=== PATIENT | male | born 1965 | race Caucasian/White ===

== ENCOUNTER → 2023-09-30 07:07 | Outpatient (REF) | payer OTHER, SELFPAY | LOC: RAD 07:07 | PROVIDERS: ATTENDING PHYSICIAN Surgery; FAMILY PHYSICIAN Internal Medicine | DX: R50.9 Fever, unspecified (principal) | CPT/HCPCS: 71250; 74176 ==

== ENCOUNTER 2023-10-02 18:59 | Inpatient (IN) | payer OTHER, SELFPAY ==
[2023-10-02 12:45] VITALS: BP 191/93; BMI 26.9
[2023-10-02 13:13] LABS: % Basophils 0.5 % (0-2); % Immature Granulocytes 0.4 % (0-0.5); % Lymphocytes 12.8 % (20.5-51.1); % Monocytes 5.5 % (1.7-9.3); % Neutrophils 80.8 % (42.2-75.2); Absolute Basophils 0.1 10^3/uL (0-0.2); Absolute Lymphocytes 1.4 10^3/uL (1.2-3.4); Absolute Monocytes 0.6 10^3/uL (0.1-0.6); Absolute Neutrophils 8.9 10^3/uL (1.4-6.5); Hemoglobin 14.1 g/dL (13.0-18.0); Mean Corp Hgb Conc. 32.8 g/dL (33.0-37.0); Mean Corpuscular Hgb 27.2 pg (27.0-31.0); Mean Platelet Volume 9.7 fL (7.4-10.4); Nucleated Red Blood Cells % 0 % (-); Platelet Count 255 10^3/uL (130-400); Red Blood Cell Count 5.18 10^6/uL (4.70-6.10); Red Cell Dist. Width 14.6 % (11.5-14.5)
[2023-10-02 13:22] LABS: INR 1.21; PT 15.4 Sec (11.4-14.6)
[2023-10-02 13:32] LABS: Lactic Acid 1.6 mmol/L (0.7-2.0)
[2023-10-02 13:34] LABS: ALT (SGPT) 36 U/L (0-50); AST (SGOT) 32 U/L (17-59); Albumin 4.4 g/dl (3.5-5.0); Alkaline Phosphatase 98 U/L (38-126); Blood Urea Nitrogen 17 mg/dl (9-20); Calcium 9.2 mg/dl (8.4-10.2); Carbon Dioxide 24 mmol/L (22-30); Chloride 100 mmol/L (98-107); Estimated Creatinine Clearance > 125 ml/min; Glucose 189 mg/dl (70-99); Potassium 2.7 mmol/L (3.5-5.1); Sodium 136 mmol/L (135-145); Total Bilirubin 0.9 mg/dl (0.2-1.3); Total Protein 7.4 g/dl (6.3-8.2); eGFR > 60.00
[2023-10-02] MEDS: KCL 160 MEQ IV (16:36)
[2023-10-02] MEDS: VANCOCIN 275 MG IV (16:40)
--- NOTE | 2023-10-02 17:40 | ED.GENMED ---
History of Present Illness
<Anderson Ovalle Jr., PA-C - Last Filed: 10/02/23 18:37>
General
Chief Complaint: Fever
Source: patient and family
Exam Limitations: none
Time Seen by Provider: 10/02/23 14:27
Nursing documentation reviewed up to this point in time: agreed with
Travel History
Have you had any contact with someone who has COVID-19?: No
Do you have any symptoms of coronavirus? Fever > 100 degrees, chills, cough, shortness of breath, sore throat, loss of taste or smell, muscle aches, or headache?: No
History of Present Illness
History of Present Illness:
58-year-old male past medical history of A-fib currently on Eliquis, previous T12 injury and paraplegia thereafter neurogenic bladder presenting to the emergency department today with concerns of worsening swelling discomfort of the right hip. Has
been managed chronically for a chronic stage IV decubitus ulcer by [facility] but has had worsening symptoms over the past week and a half with home chills increasing redness swelling and warmth. Has been taking his doxycycline at home
over the past few days without improvement. Also an outpatient CT scan showing a fluid collection to the right hip
Past History
<Anderson Ovalle Jr., PA-C - Last Filed: 10/02/23 18:37>
Past History
ED Past Medical History: HTN, NIDDM, Other (T12 vertebral compression fracture at age 15 with resultant paraplegia), Other (Stasis ulcers, SBO, Anemia, gastritis,) and Other (Epididymitis)
ED Past Surgical History: Bowel resection (Colostomy) and Orthopedic (Spinal fusion)
Social History
Tobacco: Non-smoker
Alcohol: None
Personal:
Living: alone
Employment: Retired
Family History
Family History: Other (Noncontributory)
Review of Systems
<Anderson Ovalle Jr., PA-C - Last Filed: 10/02/23 18:37>
Review of Systems
Allergies reviewed?: Yes
All Other Systems: ROS reviewed and negative except as documented in HPI and ROS
Phy Exam
<Anderson Ovalle Jr., PA-C - Last Filed: 10/02/23 18:37>
Physical Exam
Physical Exam:
GENERAL: Alert , in no apparent distress
EYE: pupils equal and reactive
NECK: Supple, no significant adenopathy.
ENT: o/p clr, mmm.
CARDIAC: Regular rate and rhythm .
LUNGS: Clear breath sounds bilaterally, no acute respiratory distress, no wheezes/rales/rhonchi
ABDOMEN: Soft, without focal tenderness, no r/g, no cvat
NEUROLOGICAL: Alert and oriented, no focal neuro deficits
SKIN: Warm and dry, skin intact.
MUSCULOSKELETAL: Significant swelling to the right lateral hip with a stage IV decubitus ulcer is roughly 3 cm in diameter and tracks very deep. No active purulence moderate amount of surrounding redness swelling warmth, well perfused.
PSYCH: Normal and appropriate interaction.
Course
<Anderson Ovalle Jr., PA-C - Last Filed: 10/02/23 18:37>
Orders/Labs/Results
Orders:
Orders
10/02/23 12:50
Electrocardiogram (*1) Urgent
Reason for Study: Other
Other Reason for Exam: Possible Sepsis
EKG- Treatment ONCE
10/02/23 13:03
Complete Blood Count/With Diff Urgent
Comprehensive Metabolic Panel Urgent
Lactic Acid Q4H
Comment: ON ICE, CANCEL 2ND ORDER IF FIRST LACTIC ACID LEVEL <2
Prothrombin Time Urgent
Blood Culture Q30M
BRANDAN Source: Blood/Venous
Specimen Description:
Comment: FROM 2 SEPARATE SITES
10/02/23 14:56
Blood Culture Q30M
BRANDAN Source: Blood/Venous
Specimen Description:
Comment: FROM 2 SEPARATE SITES
10/02/23 14:57
Wound Culture [Wound/Abscess/Other Culture] Urgent
BRANDAN Source: Hip
Specimen Description: Right
Date Specimen was Collected: 10/02/23
Time Specimen was Collected: 14:53
10/02/23 Dinner
1800 calorie (15 carb) Diabetic
10/02/23 15:47
Vancomycin [Vancocin] 1,250 mg 0.9% Sodium Chloride 250 ml [Nss] 250 ml IV NOW
10/02/23 15:49
Potassium Chloride [KCl] 20 meq 0.9% Sodium Chloride 150 ml [Nss] 150 ml IV NOW
10/02/23 18:14
Potassium Chloride [KCl] 40 meq PO NOW STA
Straight Cath As Directed
Frequency: q6h
Patient may straight cath themselves: Yes
10/02/23 18:15
Admit/Transfer Patient As Directed
Co-Sign Provider:
Level of Care: Inpatient admission
Assign to:: Medical/Surgical
Physician / Group: rajendra hay
Diagnosis: right hip worsening stage 4 decub, hypokalemia
Reason for Hospitalization: right hip worsening stage 4 decub, hypokalemia
Expected length of stay greater than two midnights?: Yes
ELOS- Estimated Length of Stay in days: 3
I certify the patient meets the requirements for IP care: Yes
Code Status As Directed
Resuscitation Status: Do not resuscitate
Reached after discussion with pt or family/Healthcare POA: Yes
Based on pt advanced directive or healthcare POA form: Yes
Decision communicated with: per pt
DNR Bracelet Application ONCE
10/02/23 18:23
HYDROmorphone [Dilaudid] 0.5 mg IV Q3HPRN PRN
HYDROmorphone [Dilaudid] 1 mg IV Q4HPRN PRN
Lorazepam [Ativan] 1 mg IV Q8HPRN PRN
10/02/23 18:28
INFECTIOUS DISEASE CONSULT Routine
Consulting Provider: Marce Davis
Was physician already notified: Yes
Reason for consult: infected right hip stage 4 ulcer
10/02/23 19:22
Acetaminophen [Tylenol] 1,000 mg PO Q4HPRN PRN
Dextrose 50%-Water [Dextrose 50% Syringe] 12.5 grams IV [id number] PRN
Glucagon [GlucaGen] 1 mg IM PRN PRN
10/02/23 19:22
VTE Contraindication Routine
VTE Mechanical Device Contraindication: Medical Contraindication
Pharmocologic Contraindication: Medical Contraindication
Comment: pt on eliquis
Activity As Directed
Activity Level: As Tolerated
Bedside Glucose Monitoring As Directed
Frequency: AC&HS
Comment: Change to q6h if pt on TPN, tube feeding or not eating
Vital Signs As Directed
Frequency: Per unit guidelines
Ot Eval And Treat Routine
Pt Eval And Treat Routine
Activity Level: As Tolerated
10/02/23 20:00
Apixaban [Eliquis] 5 mg PO BID
Piperacillin/Tazo 3.375 Gram [Zosyn] 3.375 gram in 50 ml IV Q6H
VANCOMYCIN Pharmacy to Dose [VANCOCIN Pharmacy to Dose] 1 each Pharmacy To Prepare [Call Pharmacy To Prepare] 0 ml IV PER PROTOCOL
10/03/23 06:00
Basic Metabolic Panel IN AM
Complete Blood Count/With Diff IN AM
Glycohemoglobin (HgbA1c) IN AM
10/03/23 07:30
Insulin Aspart Corrective Low [Novolog Flexpen-Low Resistance] See Protocol SC AC
10/03/23 08:00
Amlodipine [Norvasc] 5 mg PO DAILY
Losartan [Cozaar] 100 mg PO DAILY
Multivitamin [Theragran] 1 tablet PO DAILY
10/04/23 06:00
Basic Metabolic Panel IN AM
Complete Blood Count/With Diff IN AM
10/05/23 06:00
Basic Metabolic Panel IN AM
Complete Blood Count/With Diff IN AM
Abnormal Lab Results
10/02/23
13:03
WBC 11.0 H 10^3/uL
(4.8-10.8)
MCHC 32.8 L g/dL
(33.0-37.0)
RDW 14.6 H %
(11.5-14.5)
Absolute Neuts (auto) 8.9 H 10^3/uL
(1.4-6.5)
Neutrophils % 80.8 H %
(42.2-75.2)
Lymphocytes % 12.8 L %
(20.5-51.1)
PT 15.4 H Sec
(11.4-14.6)
Potassium 2.7 L* mmol/L
(3.5-5.1)
Creatinine 0.6 L mg/dL
(0.7-1.3)
Glucose 189 H mg/dl
(70-99)
10/02/23 13:03
10/02/23 13:03
Vital Signs
Initial and Last Documented VS:
Initial Vital Signs
Temp Pulse Resp BP Pulse Ox
98.9 F 118 16 191/93 100
10/02/23 12:45 10/02/23 12:45 10/02/23 12:45 10/02/23 12:45 10/02/23 12:45
Last Documented Vital Signs
Temp Pulse Resp BP Pulse Ox
98.6 F 89 18 166/79 100
10/02/23 19:31 10/02/23 19:31 10/02/23 19:31 10/02/23 19:31 10/02/23 19:31
<DO Mary Burgos Last Filed: 10/02/23 20:28>
Orders/Labs/Results
Orders:
Orders
10/02/23 12:50
Electrocardiogram (*1) Urgent
Reason for Study: Other
Other Reason for Exam: Possible Sepsis
EKG- Treatment ONCE
10/02/23 13:03
Complete Blood Count/With Diff Urgent
Comprehensive Metabolic Panel Urgent
Lactic Acid Q4H
Comment: ON ICE, CANCEL 2ND ORDER IF FIRST LACTIC ACID LEVEL <2
Prothrombin Time Urgent
Blood Culture Q30M
BRANDAN Source: Blood/Venous
Specimen Description:
Comment: FROM 2 SEPARATE SITES
10/02/23 14:56
Blood Culture Q30M
BRANDAN Source: Blood/Venous
Specimen Description:
Comment: FROM 2 SEPARATE SITES
10/02/23 14:57
Wound Culture [Wound/Abscess/Other Culture] Urgent
BRANDAN Source: Hip
Specimen Description: Right
Date Specimen was Collected: 10/02/23
Time Specimen was Collected: 14:53
10/02/23 Dinner
1800 calorie (15 carb) Diabetic
10/02/23 15:47
Vancomycin [Vancocin] 1,250 mg 0.9% Sodium Chloride 250 ml [Nss] 250 ml IV NOW
10/02/23 15:49
Potassium Chloride [KCl] 20 meq 0.9% Sodium Chloride 150 ml [Nss] 150 ml IV NOW
10/02/23 18:14
Potassium Chloride [KCl] 40 meq PO NOW STA
Straight Cath As Directed
Frequency: q6h
Patient may straight cath themselves: Yes
10/02/23 18:15
Admit/Transfer Patient As Directed
Co-Sign Provider:
Level of Care: Inpatient admission
Assign to:: Medical/Surgical
Physician / Group: rajendra hay
Diagnosis: right hip worsening stage 4 decub, hypokalemia
Reason for Hospitalization: right hip worsening stage 4 decub, hypokalemia
Expected length of stay greater than two midnights?: Yes
ELOS- Estimated Length of Stay in days: 3
I certify the patient meets the requirements for IP care: Yes
Code Status As Directed
Resuscitation Status: Do not resuscitate
Reached after discussion with pt or family/Healthcare POA: Yes
Based on pt advanced directive or healthcare POA form: Yes
Decision communicated with: per pt
DNR Bracelet Application ONCE
10/02/23 18:23
HYDROmorphone [Dilaudid] 0.5 mg IV Q3HPRN PRN
HYDROmorphone [Dilaudid] 1 mg IV Q4HPRN PRN
Lorazepam [Ativan] 1 mg IV Q8HPRN PRN
10/02/23 18:28
INFECTIOUS DISEASE CONSULT Routine
Consulting Provider: Marce Davis
Was physician already notified: Yes
Reason for consult: infected right hip stage 4 ulcer
10/02/23 19:22
Acetaminophen [Tylenol] 1,000 mg PO Q4HPRN PRN
Dextrose 50%-Water [Dextrose 50% Syringe] 12.5 grams IV [id number] PRN
Glucagon [GlucaGen] 1 mg IM PRN PRN
10/02/23 19:22
VTE Contraindication Routine
VTE Mechanical Device Contraindication: Medical Contraindication
Pharmocologic Contraindication: Medical Contraindication
Comment: pt on eliquis
Activity As Directed
Activity Level: As Tolerated
Bedside Glucose Monitoring As Directed
Frequency: AC&HS
Comment: Change to q6h if pt on TPN, tube feeding or not eating
Vital Signs As Directed
Frequency: Per unit guidelines
Ot Eval And Treat Routine
Pt Eval And Treat Routine
Activity Level: As Tolerated
10/02/23 20:00
Apixaban [Eliquis] 5 mg PO BID
Piperacillin/Tazo 3.375 Gram [Zosyn] 3.375 gram in 50 ml IV Q6H
VANCOMYCIN Pharmacy to Dose [VANCOCIN Pharmacy to Dose] 1 each Pharmacy To Prepare [Call Pharmacy To Prepare] 0 ml IV PER PROTOCOL
10/03/23 06:00
Basic Metabolic Panel IN AM
Complete Blood Count/With Diff IN AM
Glycohemoglobin (HgbA1c) IN AM
10/03/23 07:30
Insulin Aspart Corrective Low [Novolog Flexpen-Low Resistance] See Protocol SC AC
10/03/23 08:00
Amlodipine [Norvasc] 5 mg PO DAILY
Losartan [Cozaar] 100 mg PO DAILY
Multivitamin [Theragran] 1 tablet PO DAILY
10/04/23 06:00
Basic Metabolic Panel IN AM
Complete Blood Count/With Diff IN AM
10/05/23 06:00
Basic Metabolic Panel IN AM
Complete Blood Count/With Diff IN AM
Abnormal Lab Results
10/02/23
13:03
WBC 11.0 H 10^3/uL
(4.8-10.8)
MCHC 32.8 L g/dL
(33.0-37.0)
RDW 14.6 H %
(11.5-14.5)
Absolute Neuts (auto) 8.9 H 10^3/uL
(1.4-6.5)
Neutrophils % 80.8 H %
(42.2-75.2)
Lymphocytes % 12.8 L %
(20.5-51.1)
PT 15.4 H Sec
(11.4-14.6)
Potassium 2.7 L* mmol/L
(3.5-5.1)
Creatinine 0.6 L mg/dL
(0.7-1.3)
Glucose 189 H mg/dl
(70-99)
10/02/23 13:03
10/02/23 13:03
Vital Signs
Initial and Last Documented VS:
Initial Vital Signs
Temp Pulse Resp BP Pulse Ox
98.9 F 118 16 191/93 100
10/02/23 12:45 10/02/23 12:45 10/02/23 12:45 10/02/23 12:45 10/02/23 12:45
Last Documented Vital Signs
Temp Pulse Resp BP Pulse Ox
98.6 F 89 18 166/79 100
10/02/23 19:31 10/02/23 19:31 10/02/23 19:31 10/02/23 19:31 10/02/23 19:31
<Anderson Ovalle Jr., PA-C - Last Filed: 10/02/23 18:37>
MDM/Problems Addressed
MDM/Problems Addressed:
58-year-old male presenting to the emergency department today with concerns of subjective fever chills at home over the past few days and worsening redness swelling and warmth to the area surrounding the right hip decubitus ulcer. Initial heart
rate elevated here but improving without specific treatment. White blood cell count of 11.0 blood culture sent potassium was 2.7 was given supplementation here. Case discussed with orthopedics that recommended transfer for higher level care due to
significant abnormalities to his hip chronically. Case was discussed with [facility] who accepted the case but have no available beds. Thus, patient will be admitted here with IV antibiotics and further monitoring pending bed availability.
<Anderson Ovalle Jr., PA-C - Last Filed: 10/02/23 18:37>
*Critical Care Note
Total Time (30-74mins, 75-104mins- exclusive of procedures): Not Applicable
ED Attending Note
<Anderson Ovalle Jr., PA-C - Last Filed: 10/02/23 18:37>
-
Portions of this chart may have been created with voice recognition software.� Occasional wrong word or��sound alike� substitutions may have occurred due to the inherent limitations of voice recognition software.
<Yamil Bacon, DO - Last Filed: 10/02/23 20:28>
ED Attending Note
I performed the substantive portion of visit, reviewed & personally made and approve the management plan that is documented in note by myself or MAMADOU.: Yes
ED Attending Note:
I have reviewed and agree with history and treatment plan by Ed Vasquez. Attempted transfer to [facility], no bed availability will admit until transfer available.
Discharge Plan
Departure
Patient Disposition: Admit
Date of Disposition: 10/02/23
Time of Disposition: 17:42
Admit to: Med/Surg
Admit to doctor: Lei
Presentation/result/management discussed w/ accepting MD/DO: Hospitalist
Patient with high blood pressure during this ER visit?: No
Condition: Good
Covid-19: Not Applicable
Discharge Problem:
Open wound of right hip
Interventions
Interventions:
*Risk Screen - Suicide Last Done: 10/02/23 19:33
*General Assessment Last Done: 10/02/23 14:46
*Neglect/Abuse Screening Last Done: 10/02/23 12:45
*ED COVID-19 Vaccine History Last Done: 10/02/23 12:45
*Nursing Disposition Last Done: 10/02/23 19:25
ED- Neurological Assessment Last Done: 10/02/23 17:20
ED-Skin Assessment Last Done: 10/02/23 14:42
Discharge Date and Time
Discharge Date/Time: 10/02/23 19:26
--- NOTE | 2023-10-02 17:55 | HPS.HSE ---
Addendum entered and electronically signed by Luís Odom MD 10/02/23 18:37:
Seen and examined by me independently in collaboration with the nurse practitioner Alyson.
Agree with note and assessments/plan.
Past medical history/social history/medication/allergies reviewed.
Lab data and imaging data reviewed.
Patient with traumatic T12 injury in remote past and had paraplegia has a chronic right hip wound sent in because of CT evidence of possible collection in the joint space. No fevers but has been feeling cold and is having sweats.
Hemodynamically stable. afebrile.
CT imaging here showed -There is stable severe osseous deformity at the right hip with pseudoarthrosis and 7.5 cm low-density fluid collection at this pseudoarthrosis which may be a sterile or infected collection
There is an overlying 7.5 cm ulcerated soft tissue mass at the lateral margin of proximal right femur which is near contiguous with this fluid collection. Given the patient's clinical history, these findings at the right hip may be a source of
infection.
ER spoke with [facility] for further care as the case is complicated. He has been accepted but still waiting for bed. Patient been accepted to hospitalist service while waiting for the bed.
Will start on vancomycin and Zosyn. Consult ID.
Replete K IV and PO. Consider alternative to HCTZ if persistent problem.
Watch BP closely and optimize medication as needed.
Original Note:
Family Physician
-
Family Physician: Richie Francois
Chief Complaint
-
Right hip redness, swelling, erythema around chronic stage IV decub
History of Present Illness
58-year-old male previous T12 injury paraplegia with neurogenic bladder sent for evaluation of swelling of his right hip. He has a chronic stage IV decub ulcer managed by [facility] wound care but over the past week he has had chills with increasing
redness and warmth to surrounding tissue and expansion of central wound. He has been on oral doxycycline at home without improvement. He had an outpatient CT scan 2 days ago showing fluid collection of the right hip there is plan for the patient
be transferred to [facility] but there is no bed available for 24 to 48 hours.
Patient is other past medical history of hypertension, DM 2, T12 vertebral compression fracture age 15 with resultant paraplegia, stasis ulcers, SBO, anemia, gastritis, epididymitis, diverting colostomy
Medical History
Past Medical History
Past Medical History: Reports Other
Additional Past Medical History:
Diabetes Mellitus, Type
Essential Hypertension
Bilateral Lower Ext DVT
T12 Spinal Injury with Paraplegia
Neurogenic Bladder-self caths every 6 hours
Chronic Sacral/Left Ankle Pressure Wounds
dvt left leg
Past Surgical History: Reports Other
Additional Past Surgical History:
Diverting Colostomy
Penile Implant
Multiple Spinal Surgeries/Fusion
Social History
Tobacco: Other (Occasional Cigar)
Drug: Marijuana
Personal:
Living: Alone
Employment: Disabled
Family History
Family History: Other (Mother, father, sister DM 2)
Allergies / Home Medications
Allergies reflects when Allergies were last updated in [employer] [facility].
Home Medications with original date entered in [employer] [facility]
Allergy/Medication List:
Allergies
Allergy/AdvReac Type Severity Reaction Status Date / Time
ceftriaxone Allergy Mild Rash/pt Verified 10/02/23 12:49
denies.
Tolerated
cefepime.
Sulfa (Sulfonamide Allergy BLISTERS Verified 10/02/23 12:49
Antibiotics) IN MOUTH
sulfisoxazole Allergy BLISTERS Verified 10/02/23 12:49
IN MOUTH
Home Medications
Medicinal Marijuana 0 dose inhalation HSPRN PRN sleep 01/15/22
lorazepam 1 mg tablet (Ativan) 1 mg PO HS 01/15/22
acetaminophen 500 mg tablet (Tylenol Extra Strength) 1,000 mg PO Q4H PRN mild pain 05/12/23
apixaban 5 mg tablet (Eliquis) 5 mg PO BID Blood clot prevention/tx 05/12/23
collagenase clostridium histo. 250 unit/gram topical ointment (Santyl) 1 applic topical DAILY PRN apply to right hip/left ankle wound 05/12/23
losartan 100 mg-hydrochlorothiazide 25 mg tablet 1 tab PO DAILY Blood Pressure 05/12/23
oxybutynin chloride 10 mg tablet,extended release 24 hr 10 mg PO DAILYPRN PRN overactive bladder 05/12/23
therapeutic multivitamin 1 tab PO DAILY Supplement 05/12/23
amlodipine 5 mg tablet (Norvasc) 5 mg PO DAILY 10/02/23
ciprofloxacin HCl 500 mg tablet (Cipro) 500 mg PO BID 10/02/23
Review of Systems
-
History Source: Patient
A 12 point ROS was completed and negative except as noted: Yes
Constitutional: Reports Chills; Denies Fever
EENT: Denies Sore Throat or Runny Nose
Respiratory: Denies Cough or Trouble Breathing
Cardiac: Denies Chest Pain, Palpitations or Syncope
Abdomen/GI: Reports Other (Chronic diverting colostomy); Denies Abdominal Pain, Nausea, Vomiting or Diarrhea
: Denies Dysuria, Frequency, Flank Pain or Incontinence
Musculoskeletal: Denies Joint Pain or Edema
Skin: Reports Other (Right hip decub stage IV with surrounding erythema, expansion of prior existing wound); Denies Itching or Rash
Neurological: Denies Dizzy or Headache
Endocrine: Reports No Symptoms
Hematologic/Lymphatic: Reports No Symptoms
Psych: Reports Calm
Physical Exam
Vital Signs
Vital Signs
Temp Pulse Resp BP Pulse Ox
98.9 F 98 18 191/93 100
10/02/23 12:45 10/02/23 14:46 10/02/23 14:46 10/02/23 12:45 10/02/23 16:50
Physical Exam
General: Comfortable, Conversant and Chills
HEENT: NormoCephalic, Anicteric, PERRLA, [place] Conjunctivae and No Ptosis
Respiratory: Clear; No Wheezes, Rales or Rhonchi
Cardiac: S1/S2 and Regular Rhythm; No Murmur, Rub, Gallop or Peripheral Edema
Breast: Deferred by me
GI: Soft, Non Tender, Non Distended, Normal Bowel Sounds and Ostomy (Chronic diverting colostomy)
Genito-urinary: Deferred by me
Musculoskeletal: No Clubbing, No Cyanosis, No Edema and Other (Right hip decub stage IV with surrounding erythema, expansion of prior existing wound)
Skin: Warm, Dry and Decubitus Ulcers (Right hip decub stage IV with surrounding erythema, expansion of prior existing wound, paraplegia T12 down)
Neuro: AO x 3 and Other (Chronic paraplegia T12 down); No Slurred Speech, Facial Droop, Tremors or Sedated
Psych: Calm
Laboratory Results
-
10/02/23 13:03
10/02/23 13:03
Laboratory Results
PT 15.4 Sec (11.4-14.6) H 10/02/23 13:03
INR 1.21 10/02/23 13:03
Lactic Acid Cancelled 10/02/23 17:00
Total Bilirubin 0.9 mg/dl (0.2-1.3) 10/02/23 13:03
AST 32 U/L (17-59) 10/02/23 13:03
ALT 36 U/L (0-50) 10/02/23 13:03
Alkaline Phosphatase 98 U/L (38-126) 10/02/23 13:03
Impression/Plan
-
Impression/plan:
[facility]
#Infected right hip decubitus ulcer stage IV
-Patient is excepted at [facility] no bed available for 24 to 48 hours
-WBC 11 has been on oral doxycycline as outpatient
-Consult Ortho
-Blood cultures x 2, wound culture
-IV vancomycin
PT/OT/case management consult
#T12 injury with paraplegia age 15
#Chronic neurogenic bladder-q6h
-Continue oxybutynin 10 mg daily as needed
#Hypokalemia 2/2 diuretic use
K2.7
-Hold HCTZ
-20 KCl rider will give 40 mEq p.o.
#HTN�benign
191/93
-Continue losartan, Norvasc 5 mg daily
-hold HCTZ
#DM2
BS 189 check HgbA1c
SSI low
#Anxiety
Continue Ativan 1 mg at bedtime
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
#Dvt left leg
several years ago
cont eliquis
Other PMH:
SBO
DVT prophylaxis
Patient on [facility] [employer] Eliquis 5 mg twice daily
DNR per patient
[2023-10-02 19:31] VITALS: BP 166/79; BMI 27.7
[2023-10-02] MEDS: DILAUDID 0.5 MG IV (20:45)
[2023-10-02] MEDS: ATIVAN 1 MG IV (20:46)
[2023-10-02] MEDS: ZOSYN 50 IV (20:47)
[2023-10-02] MEDS: NSS (PRESERVATIVE FREE) 0.5 ML IV (20:47)
[2023-10-02] MEDS: ELIQUIS 5 MG PO (20:47)
[2023-10-02 20:54] LABS: Glucose - Point of Care 101 mg/dl (70-99)
--- NOTE | 2023-10-02 20:55 | PHA.VAN.IN ---
Assessment
- Assessment
Renal Function: Appears similar to baseline
Concomitant Antimicrobials: piperacillin/tazobactam
AUC Dosing Plan
- Dosing Variables
Dosing Weight (kg): 85
Dosing CrCl (ml/min): 125
Vd coefficient (L/kg): 0.7
- Empiric Dosing
Initial / Loading Dose: vanc 1250mg administered in the ED
Maintenance Regimen: vanc 1250mg Q12 starting 10/02 0600
Estimated AUC (mcg*h/mL): 420
Estimated Peak (mcg*h/mL): 28.9
Estimated Trough (mcg/ml): 9.3
Estimated Half Life (H): 6.4
- Monitoring
No levels ordered at this time: consider levels in next few days
Pharmacokinetics Vancomycin I
- -
Patient Age: 58
Patient Sex: Male
Vancomycin Day #: 1
Indication: Skin And Soft Tissue
Requesting Provider: Alyson Phillips
Pertinent Antimicrobial Allergies:
ceftriaxone - rash (pt denies); tolerated cefepime
sulfa - blisters in mouth
Height / Weight:
Height 5 ft 9 in
Actual Weight 85 kg
Pertinent Past Medical History: paraplegia, chronic stage IV decub ulcer
- Vital Signs / Lab Results
Temp Pulse Resp BP Pulse Ox
98.6 F 89 18 166/79 100
10/02/23 19:31 10/02/23 19:31 10/02/23 19:31 10/02/23 19:31 10/02/23 19:31
Lab Results - Hematology
10/02/23
13:03
WBC 11.0 H
Lab Results - Chemistry
10/02/23
13:03
BUN 17
Creatinine 0.6 L
Estimated Creat Clear > 125
Albumin 4.4
10/02/23 10/02/23
13:03 17:00
Lactic Acid 1.6 Cancelled
Microbiology Results
10/02/23 14:57 Gram Stain - Preliminary
Hip - Right
[2023-10-02 22:56] VITALS: BP 164/76
== END 2023-10-02 23:20 | disposition short-term general hospital (02) | DRG 593 ==
LOC: 4 WEST ACU 18:59
PROVIDERS: ADMITTING PHYSICIAN Internal Medicine; EMERGENCY PHYSICIAN Emergency Medicine; FAMILY PHYSICIAN Internal Medicine
DX: L89.214 Pressure ulcer of right hip, stage 4 (principal); G82.20 Paraplegia, unspecified; E87.6 Hypokalemia; Z66 Do not resuscitate
CPT/HCPCS: 80053; 82962; 83605; 85025; 85610; 87040; 87070; 87205; 93005; 96365; 96375; 99285

== ENCOUNTER 2024-01-07 10:55 | Emergency (ER) | payer OTHER, SELFPAY ==
[2024-01-07 10:58] VITALS: BMI 28.2
[2024-01-07 11:00] VITALS: BP 163/83
[2024-01-07 11:01] VITALS: BP 163/83
[2024-01-07 11:22] LABS: % Basophils 0.4 % (0-2); % Immature Granulocytes 0.4 % (0-0.5); % Lymphocytes 7.5 % (20.5-51.1); % Monocytes 1.8 % (1.7-9.3); % Neutrophils 89.9 % (42.2-75.2); Absolute Lymphocytes 0.7 10^3/uL (1.2-3.4); Absolute Monocytes 0.2 10^3/uL (0.1-0.6); Absolute Neutrophils 8.9 10^3/uL (1.4-6.5); Hematocrit 45.5 % (39.0-52.0); Hemoglobin 15.1 g/dL (13.0-18.0); Mean Corp Hgb Conc. 33.2 g/dL (33.0-37.0); Mean Corpuscular Hgb 28.5 pg (27.0-31.0); Mean Corpuscular Volume 85.8 fL (80.0-94.0); Mean Platelet Volume 10.2 fL (7.4-10.4); Nucleated Red Blood Cells % 0 % (-); Platelet Count 223 10^3/uL (130-400); Red Cell Dist. Width 14.2 % (11.5-14.5); White Blood Cell Count 9.9 10^3/uL (4.8-10.8)
[2024-01-07 11:38] LABS: ALT (SGPT) 18 U/L (0-50); AST (SGOT) 20 U/L (17-59); Albumin 4.6 g/dl (3.5-5.0); Alkaline Phosphatase 98 U/L (38-126); Blood Urea Nitrogen 22 mg/dl (9-20); Calcium 10.1 mg/dl (8.4-10.2); Carbon Dioxide 27 mmol/L (22-30); Chloride 101 mmol/L (98-107); Estimated Creatinine Clearance 116 ml/min; Glucose 171 mg/dl (70-99); Lipase 52 U/L (23-300); Sodium 139 mmol/L (135-145); Total Bilirubin 0.4 mg/dl (0.2-1.3); Total Protein 7.6 g/dl (6.3-8.2); eGFR > 60.00
[2024-01-07 12:00] VITALS: BP 152/81
[2024-01-07] MEDS: OMNIPAQUE 50 ML PO (12:56)
[2024-01-07] MEDS: ATIVAN 1 MG PO (13:12)
[2024-01-07] MEDS: DILAUDID 1 MG IV (13:29)
[2024-01-07] MEDS: NSS 500 IV (13:29)
[2024-01-07] MEDS: ZOFRAN 4 MG IV (13:30)
[2024-01-07 13:45] LABS: Urine Albumin Negative (Neg - Trace); Urine Bilirubin Negative (Negative); Urine Character Clear (Clear); Urine Color Yellow; Urine Glucose Negative (Negative); Urine Ketone Negative (Negative); Urine Leukocyte Negative (Negative); Urine Nitrite Negative (Negative); Urine Occult Blood Negative (Negative); Urine Specific Gravity 1.015 (<1.030); Urine Urobilinogen Negative (Neg - 1+); Urine pH 6.5 (5.0-9.0)
--- NOTE | 2024-01-07 13:45 | ED.GENMED ---
History of Present Illness
General
Chief Complaint: Abdominal Symptoms
Source: patient
Exam Limitations: none
Time Seen by Provider: 01/07/24 11:39
Nursing documentation reviewed up to this point in time: agreed with
History of Present Illness
History of Present Illness:
58 y/o M with h/o remote traumatic t 12 spinal injury causing paraplegia, L colostomy with h/o parastomal hernia, h/o SBO
here with sensation of pain in his left lower abdomen within his hernia/colostomy region since 430 am when he woke up with pain and nauesa. he vomited a total of 4 times between 430 and 630 am and not since but has had pain and nausea
he doesn't appreciate that there has been less output from ostomy recently but has had less appetite the past few dyas.
no fever that he knows of
has h/o neurogenic bladder, caths self every 6 hours
no changes to urine that he is aware of.
pt does note that he chronically feels someversion of discomfort in his stoma regoin/hernia
but he usually doesn' thave vomiting
pt also admits to smoking marijuana to deal with chronic pain
he has never had vomiting related to cannabis before
he tries to stay away from opaites
Past History
Past History
ED Past Medical History: HTN, NIDDM, Other (T12 vertebral compression fracture at age 15 with resultant paraplegia), Other (Stasis ulcers, SBO, Anemia, gastritis,) and Other (Epididymitis)
ED Past Surgical History: Bowel resection (Colostomy) and Orthopedic (Spinal fusion)
Social History
Tobacco: Non-smoker
Alcohol: None
Personal:
Living: alone
Employment: Retired
Family History
Family History: Other (Noncontributory)
Review of Systems
Review of Systems
Allergies reviewed?: Yes
All Other Systems: Not applicable
Phy Exam
Physical Exam
Physical Exam:
GENERAL: Alert uncomfortable
EYE: pupils equal and reactive
NECK: Supple
ENT: o/p clr, mmm.
CARDIAC: Regular rate and rhythm .
LUNGS: Clear breath sounds bilaterally, no acute respiratory distress, no wheezes/rales/rhonchi
ABDOMEN: soft; left sided colostomy pink but there is a large parastomal hernia, tender, seems to be reducible
NEUROLOGICAL: Alert and oriented, no focal neuro deficits
SKIN: Warm and dry, skin intact.
MUSCULOSKELETAL: paraplegia b/l LE, muscle wasting
PSYCH: Normal and appropriate interaction.
Course
Orders/Labs/Results
Orders:
Orders
01/07/24 11:11
Complete Blood Count/With Diff Urgent
Comprehensive Metabolic Panel Urgent
Lipase Urgent
01/07/24 12:23
CT Abd/pel W Iv And Oral Contr Urgent
Comment:
Reason For Exam: LLQ PAIN, COLOSTOMY WITH HERNIA, PARAPLEGIA
0.9% Sodium Chloride 500 ml [Nss] 500 ml IV BOLUS
HYDROmorphone [Dilaudid] 1 mg IV NOW STA
Iohexol [Omnipaque] See Protocol PO NOW STA
Ondansetron Injectable [Zofran] 4 mg IV NOW STA
01/07/24 13:08
Lorazepam [Ativan] 1 mg PO NOW STA
01/07/24 13:35
Urinalysis Reflex To Culture Urgent
Date Specimen was Collected: 01/07/24
Time Specimen was Collected: 13:35
01/07/24 17:11
HYDROmorphone [Dilaudid] 1 mg PO NOW STA
Ondansetron Orally Disint [Zofran Odt (Orally Disintegrating)] 4 mg PO NOW STA
Abnormal Lab Results
01/07/24
11:11
Absolute Neuts (auto) 8.9 H 10^3/uL
(1.4-6.5)
Absolute Lymphs (auto) 0.7 L 10^3/uL
(1.2-3.4)
Neutrophils % 89.9 H %
(42.2-75.2)
Lymphocytes % 7.5 L %
(20.5-51.1)
BUN 22 H mg/dl
(9-20)
Glucose 171 H mg/dl
(70-99)
01/07/24 11:11
01/07/24 11:11
Vital Signs
Initial and Last Documented VS:
Initial Vital Signs
BP
163/83
01/07/24 11:00
Last Documented Vital Signs
Temp Pulse Resp BP Pulse Ox
97.8 F 69 18 140/87 100
01/07/24 11:01 01/07/24 17:00 01/07/24 17:00 01/07/24 17:00 01/07/24 16:00
MDM/Problems Addressed
Differential Diagnosis Includes:
bowel obstruction, hernia, gastroenteritis, less like cannabis hyperemsis
MDM/Problems Addressed:
58 y/o M with ho paraplegia and neurogenic bladder, colostomy and parastomal hernia, bowel obstruction
here wih ovmiting and worsening acute on chroni cpain in his hernia region
normal output in ostomy
no change to urine
ovmiting x 4 at home, resolved here
was able to tolerate oral contrast with zofran
says that his pain was much better with dialudid
he does use marijuana for chronic pain to avoid opiates but does have this chronic abdomianl pain usually
his labs, urine and ct are reassruing
his hernia hsa grown in size but no evidence of obstruction
pt told me he felt better and wante dto go home
but he does want a dose of pain meds before leaving becuase of his chronic pain
*Critical Care Note
Total Time (30-74mins, 75-104mins- exclusive of procedures): Not Applicable
ED Attending Note
-
Portions of this chart may have been created with voice recognition software.� Occasional wrong word or��sound alike� substitutions may have occurred due to the inherent limitations of voice recognition software.
Discharge Plan
Departure
Patient Disposition: Home (Routine Discharge)
Date of Disposition: 01/07/24
Time of Disposition: 16:57
Patient with high blood pressure during this ER visit?: No
Condition: Fair
Covid-19: Not Applicable
Discharge Problem:
Vomiting, Parastomal hernia
Instructions: [place] Diet, Nausea and Vomiting, Adult ED, Abdominal Hernia
Prescriptions:
New
ondansetron 4 mg tablet,disintegrating
4 mg PO Q8H PRN (Reason: nausea and vomiting) 2 Days Qty: 5 0RF
No Action
lorazepam [Ativan] 1 mg Tablet
1 mg PO HS
Rx Instructions:
05/12/2023, patient filled this medication on 02/27/2023 for 180 tablets according to PDMP.
Medicinal Marijuana
0 dose inhalation HSPRN PRN (Reason: sleep)
oxybutynin chloride 10 mg Tablet Extended Release 24hr
10 mg PO DAILYPRN PRN (Reason: overactive bladder)
therapeutic multivitamin Tablet
1 tab PO DAILY
acetaminophen [Tylenol Extra Strength] 500 mg Tablet
1,000 mg PO Q4H PRN (Reason: mild pain)
losartan-hydrochlorothiazide 100-25 mg Tablet
1 tab PO DAILY
Santyl 250 unit/gram Ointment
1 applic TOPICAL DAILY PRN (Reason: apply to right hip/left ankle wound)
Eliquis 5 MG tablet
5 mg PO BID
amlodipine [Norvasc] 5 mg Tablet
5 mg PO DAILY
ciprofloxacin HCl [Cipro] 500 mg Tablet
500 mg PO BID
Patient Comments:
patient started on 09/28/23
Referrals:
Richie Francois MD [Family Provider] - Follow up in 2-3 days
Activity Restrictions/Additional Instructions:
YOUR BLOOD WORK AND CAT SCAN WERE REASSURING
YOU DID NOT HAVE ANY MORE VOMITING HERE
YOUR CAT SCAN DIDN'T SHOW ANY OBSTRUCTION OF YOUR HERNIA BUT IT CONTAINS BOWEL AND IT IS LARGER THAN PREVIOUS
YOU SHOULD DISCUSS WITH OUTPATIENT SURGERY A CONSULTAITON ABOUT REPAIR
IN THE MEANTIME, BLAND DIET
ZOFRAN NEEDED EVERY 8 HOURS FOR VOMITING
RETURN FOR: WORSE YADIRA, VOMITING, FEVER, DECREASED OUTPUT OR ANY CONCERNS.
Interventions
Interventions:
*Risk Screen - Suicide Last Done: 01/07/24 11:00
*General Assessment Last Done: 01/07/24 11:00
*Neglect/Abuse Screening Last Done: 01/07/24 11:00
ED- Fall Risk Assessment Last Done: 01/07/24 17:46
*ED COVID-19 Vaccine History Last Done: 01/07/24 11:00
*Nursing Disposition Last Done: 01/07/24 17:46
CA-Exbttf-Kqajipsoiz Assessment Last Done: 01/07/24 11:01
Discharge Date and Time
Discharge Date/Time: 01/07/24 17:47
Print Language: LEBANESE
[2024-01-07 16:00] VITALS: BP 155/78
[2024-01-07 17:00] VITALS: BP 140/87
[2024-01-07] MEDS: ZOFRAN ODT (ORALLY DISINTEGRATING) 4 MG PO (17:37)
[2024-01-07] MEDS: DILAUDID 1 MG PO (17:37)
== END 2024-01-07 17:47 | disposition home or self-care (01) ==
LOC: EMR 10:55
PROVIDERS: Physician Assistant; EMERGENCY PHYSICIAN Emergency Medicine; FAMILY PHYSICIAN Internal Medicine
DX: K43.5 Parastomal hernia without obstruction or gangrene (principal); R11.10 Vomiting, unspecified; G82.20 Paraplegia, unspecified
CPT/HCPCS: 99285; 96374; 96375; 96361; 74177; 80053; 81003; 83690; 85025; Q9967

== ENCOUNTER 2024-11-25 03:34 | Inpatient (IN) | payer OTHER, SELFPAY ==
[2024-11-24 22:19] VITALS: BP 157/82; BMI 26.1
[2024-11-24 22:20] VITALS: BP 157/82
[2024-11-24] MEDS: ZOFRAN 4 MG IV (22:42)
[2024-11-24] MEDS: DILAUDID 1 MG IV (22:42)
[2024-11-24] MEDS: NSS 1000 IV (22:43)
[2024-11-24] MEDS: OMNIPAQUE 50 ML PO (22:50)
[2024-11-24 22:52] LABS: % Basophils 0.4 % (0-2); % Eosinophils 0.5 % (0-6); % Immature Granulocytes 0.3 % (0-0.5); % Lymphocytes 16.1 % (20.5-51.1); % Monocytes 5.6 % (1.7-9.3); % Neutrophils 77.1 % (42.2-75.2); Absolute Eosinophils 0.1 10^3/uL (0-0.7); Absolute Lymphocytes 1.7 10^3/uL (1.2-3.4); Absolute Monocytes 0.6 10^3/uL (0.1-0.6); Absolute Neutrophils 8.2 10^3/uL (1.4-6.5); Hematocrit 39.1 % (39.0-52.0); Hemoglobin 12.9 g/dL (13.0-18.0); Mean Corpuscular Hgb 28.3 pg (27.0-31.0); Mean Corpuscular Volume 85.7 fL (80.0-94.0); Nucleated Red Blood Cells % 0 % (-); Platelet Count 333 10^3/uL (130-400); Red Blood Cell Count 4.56 10^6/uL (4.70-6.10); Red Cell Dist. Width 13.5 % (11.5-14.5); White Blood Cell Count 10.6 10^3/uL (4.8-10.8)
[2024-11-24 23:00] VITALS: BP 128/81
[2024-11-24 23:05] LABS: ALT (SGPT) 21 U/L (0-50); AST (SGOT) 21 U/L (17-59); Albumin 3.7 g/dl (3.5-5.0); Alkaline Phosphatase 83 U/L (38-126); Blood Urea Nitrogen 24 mg/dl (9-20); Calcium 9.4 mg/dl (8.4-10.2); Carbon Dioxide 27 mmol/L (22-30); Chloride 106 mmol/L (98-107); Estimated Creatinine Clearance 80 ml/min; Glucose 137 mg/dl (70-99); Lipase 56 U/L (23-300); Potassium 3.7 mmol/L (3.5-5.1); Sodium 141 mmol/L (135-145); Total Bilirubin 0.6 mg/dl (0.2-1.3); Total Protein 7.1 g/dl (6.3-8.2); eGFR > 60.00
[2024-11-25] VITALS (18 sets, daily range): BP systolic 112–156; BP diastolic 52–92; BMI 26.1
[2024-11-25] MEDS: DILAUDID 1 MG IV ×8 (00:34→20:24)
--- NOTE | 2024-11-25 01:02 | ED.GENMED ---
History of Present Illness
<Lizy Morris BOATING SAFETY OFFICER - Last Filed: 11/29/24 08:33>
General
Chief Complaint: Abdominal Pain
Source: patient
Exam Limitations: none
Time Seen by Provider: 11/24/24 22:36
Nursing documentation reviewed up to this point in time: agreed with
History of Present Illness
History of Present Illness:
59-year-old male with a T2 spinal cord injury and paraplegia, A-fib on Eliquis, HTN, HLD, small bowel obstruction 2019, neurogenic bladder with urinary retention diversional colonoscopy 30 years ago due to a wound on his buttocks requiring a flap
and muscle rotation to keep the stool away from the wound. He states he awakened at 5 AM with lower abdominal pain. He denies nausea or vomiting. He denies fever or chills. He states no colostomy bag output since 5 AM
Past History
<Lizy Morris, BOATING SAFETY OFFICER - Last Filed: 11/29/24 08:33>
Past History
ED Past Medical History: HTN, NIDDM, Other (T12 vertebral compression fracture at age 15 with resultant paraplegia), Other (Stasis ulcers, SBO, Anemia, gastritis,) and Other (Epididymitis)
ED Past Surgical History: Bowel resection (Colostomy) and Orthopedic (Spinal fusion)
Social History
Tobacco: Non-smoker
Alcohol: None
Personal:
Living: alone
Employment: Retired
Family History
Family History: Other (Noncontributory)
Review of Systems
<Lizy Morris, BOATING SAFETY OFFICER - Last Filed: 11/29/24 08:33>
Review of Systems
Allergies reviewed?: Yes
All Other Systems: ROS reviewed and negative except as documented in HPI and ROS
Constitutional: Denies fever
Respiratory: Denies trouble breathing
Cardiac: Denies chest pain
ABD/GI: Reports abdominal pain and other (Colostomy bag has not drained since 5 AM this morning); Denies nausea, vomiting or diarrhea
: Reports other (Neurogenic bladder,)
Musculoskeletal: Reports other (Paraplegia)
Phy Exam
<Lizy Morris, BOATING SAFETY OFFICER - Last Filed: 11/29/24 08:33>
Physical Exam
Physical Exam:
GENERAL: No acute distress. A&Ox3.
CONSTITUTIONAL: Afebrile.
EYES: clear, conjunctivae normal
ENMT: moist mucus membranes, Pharynx nl
RESPIRATORY: Regular respirations, nonlabored, lungs clear.
CARDIOVASCULAR: Regular rate and rhythm, no murmurs, no rubs.
GI: Soft, tender to palpation across lower abdomen., normal BS. Colostomy bag intact and empty
MUSCULOSKELETAL: Paraplegic, lower extremity contractures. Well perfused.
SKIN: Warm, dry, pink
PSYCH: Normal mood and affect. Well kept, interactive and appropriate
NEUROLOGIC: Awake, alert and oriented. No focal neurological deficits
Course
<Lizy Morris, BOATING SAFETY OFFICER - Last Filed: 11/29/24 08:33>
Orders/Labs/Results
Orders:
Orders
11/24/24 22:36
0.9% Sodium Chloride 1000 ml [Nss] 1,000 ml IV BOLUS
HYDROmorphone [Dilaudid] 1 mg IV NOW STA
Ondansetron Injectable [Zofran] 4 mg IV NOW STA
11/24/24 22:37
0.9% Sodium Chloride 1000 ml [Nss] 1,000 ml IV BOLUS
Iohexol [Omnipaque] See Protocol PO NOW STA
11/24/24 22:45
Complete Blood Count/With Diff Urgent
Comprehensive Metabolic Panel Urgent
Lipase Urgent
Magnesium Urgent
Comment: ADD ON
11/25/24 00:21
EKG [Electrocardiogram (*1)] Urgent
Reason for Study: Other
Other Reason for Exam: run of v. tach
EKG- Treatment ONCE
11/25/24 00:31
HYDROmorphone [Dilaudid] 1 mg .ROUTE .STK-MED ONE
11/25/24 00:34
HYDROmorphone [Dilaudid] 1 mg IV NOW STA
11/25/24 01:00
CT Abd/pel W Iv And Oral Contr Urgent
Reason For Exam: LLQ pain, colostomy w hernia, sm bowelobstruction
11/25/24 01:51
NG Tube [GI tube insertion- Treatment] ONCE
11/25/24 02:05
HYDROmorphone [Dilaudid] 1 mg IV NOW STA
11/25/24 02:44
Chest X-ray Portable [CR Chest Portable - 1 View] Urgent
Comment:
Reason For Exam: post-NG placement
Reason Study Needs to be Portable: Other
If Reason is Other, explain: post procedure
11/25/24 03:15
Admit/Transfer Patient As Directed
Co-Sign Provider:
Level of Care: Inpatient admission
Assign to:: Telemetry
Physician / Group: hospitalist
Diagnosis: SBO
Reason for Telemetry: Arrhythmia
Date to Stop Telemetry: 11/28/24
Time to Stop Telemetry: 11:00
Reason for Hospitalization: SBO, ng tube, ivf , pain control
Expected length of stay greater than two midnights?: Yes
ELOS- Estimated Length of Stay in days: 3
I certify the patient meets the requirements for IP care: Yes
PRN Pain Medication Management As Directed
May give lesser potent ordered pain med per pt: Yes
preference::
Protocol:: Medication orders for pain may be administered in a
manner that supports deferring to patient preference
when the pt is:
-Requesting an ordered lesser potent pain medication.
Least to most potent pain medications are defined as:
acetaminophen < NSAID < tramadol < opioids (morphine,
oxycodone, hydromorphone).
- Requesting a lesser dose of the same medication IF
ORDERED.
- Requesting a less intrusive route of administration
if both routes are prescribed by the provider (PO <
IV).
11/25/24 03:29
Add On- LAB Urgent
Tests Added?: magnesium
11/25/24 03:49
HYDROmorphone [Dilaudid] 0.5 mg IV Q2HPRN PRN
Heparin 67620 Units/250 ml 25,000 units in 250 ml IV PER PROTOCOL
Weight to be used for heparin protocol in kilograms (kg):: 82.554
Protocol:: DVT/PE
PTT Goal Range to be used:: PTT 73 to 111 seconds
Order type:: Initial
INITIAL Infusion Dose (UNITS/KG/hr) & then follow protocol:: 18 units/kg/hr
Infusion Dose in UNITS/hr & then follow protocol (UNITS/hr):: 1,500
INFUSION RATE in mL/hr & then follow protocol (mL/hr):: 15
For DVT/PE algorithm, re-bolus for low PTT?: Yes
PTT less than or equal to 64 seconds:: Re-bolus 80 units/kg (max 10,000units). Increase by 300 units/hr
(+ 3mL/hr)
PTT 64.1 to 72.9 seconds:: Re-bolus 40 units/kg (max 5,000 units). Increase by 200 units/hr
(+ 2mL/hr)
PTT 73 to 111 seconds:: Target Range. No change in rate.
PTT 111.1 to 130.9 seconds:: Decrease rate by 200 units/hr (- 2 mL/hr)
PTT 131 to 199.9 seconds:: HOLD for 1 hr. Then decrease by 300 units/hr (- 3mL/hr)
PTT greater than or equal to 200 seconds:: HOLD for 2 hrs & Notify Provider. Then decrease by 300 units/hr
(- 3mL/hr)
Lab follow-up:: Each change, PTT q6h until 2 consecutive are therapeutic. Then
PTT daily.
HydrALAZINE [Apresoline] 5 mg IV Q4HPRN PRN
Ondansetron Injectable [Zofran] 4 mg IV Q6HPRN PRN
Potassium Chloride [KCl] 20 meq 0.9% Sodium Chloride 250 ml [Nss] 250 ml IV NOW
11/25/24 03:49
Consult Notification Routine
Specialty to Notify: Surgical
Date consulting provider notified: 11/25/24
Time consulting provider notified: 07:24
Notified:: Provider
SURGICAL CONSULT Routine
Consulting Provider: Savage Prajapati
Was physician already notified: No
Reason for consult: sbo
Heparin Protocol- PTT Orders As Directed
PTT per Heparin protocol: -Obtain CBC and baseline PTT - if not already collected.
-Obtain PTT 6 hours from start of infusion. Then, every 6 hours until 2 consecutive
PTT's are therapeutic. Then, PTT Daily.
-With each rate change, obtain PTT every 6 hours until 2 consecutive PTT's are
therapeutic. Then, PTT Daily.
Bladder Scan As Directed
Follow Bladder Retention/Intermittent Cath Algorithm?: Yes
PRN if no void in __ hours: 6
Frequency: Per Retention Algorithm
If Bladder Scan Result >: 400
then:: Straight cath
Comment: may str cath prn per pt normal routine. may str cath self if desired
NG Tube [Gastrointestinal Tubes] As Directed
Type: [place] sump
To suction?: Yes
Type of suction: Low intermittent
Irrigate tube?: Yes
Irrigant: Tap Water
Frequency: Q4H
Amount in mls: 30
Irrigation Directions: Irrigate Q4H and PRN
Notify MD As Directed
Notify physician if: PTT is greater than or equal to 200.
Straight Cath As Directed
Frequency: q6h
Patient may straight cath themselves: Yes
Additional Instructions: q6h and prn
11/25/24 03:56
PTT Urgent
Comment: Obtain baseline before beginning heparin infusion if not already collected
11/25/24 04:00
Dextrose 5%/Lactringers 1000ML [D5lr] 1,000 ml IV 75 mls/hr
11/25/24 05:25
Basic Metabolic Panel IN AM
Complete Blood Count/With Diff IN AM
11/25/24 Breakfast
NPO
Allow oral meds: Yes
Allow clear liquids: Sips of Clears
NPO with Ice Chips: Yes
11/25/24 08:00
Pantoprazole [Protonix IV] 40 mg IV DAILY
11/27/24 09:00
Complete Blood Count/No Diff Q2D
Comment: Notify MD if platelet count is <130,000 or decreases by 50% from baseline
11/28/24 11:00
DC Protocol for Telemetry ONCE
Abnormal Lab Results
11/24/24
22:45
RBC 4.56 L 10^6/uL
(4.70-6.10)
Hgb 12.9 L g/dL
(13.0-18.0)
Absolute Neuts (auto) 8.2 H 10^3/uL
(1.4-6.5)
Neutrophils % 77.1 H %
(42.2-75.2)
Lymphocytes % 16.1 L %
(20.5-51.1)
BUN 24 H mg/dl
(9-20)
Glucose 137 H mg/dl
(70-99)
Magnesium 1.5 L mg/dl
(1.6-2.3)
11/24/24 22:45
11/24/24 22:45
Vital Signs
Initial and Last Documented VS:
Initial Vital Signs
Temp Pulse Resp BP Pulse Ox
98.0 F 107 18 157/82 100
11/24/24 22:19 11/24/24 22:19 11/24/24 22:19 11/24/24 22:19 11/24/24 22:19
Last Documented Vital Signs
Temp Pulse Resp BP Pulse Ox
98.2 F 85 20 168/90 98
11/27/24 11:28 11/27/24 11:28 11/27/24 11:28 11/27/24 11:28 11/27/24 11:28
<Yamil Bacon, DO - Last Filed: 11/25/24 02:40>
Orders/Labs/Results
Orders:
Orders
11/24/24 22:36
0.9% Sodium Chloride 1000 ml [Nss] 1,000 ml IV BOLUS
HYDROmorphone [Dilaudid] 1 mg IV NOW STA
Ondansetron Injectable [Zofran] 4 mg IV NOW STA
11/24/24 22:37
0.9% Sodium Chloride 1000 ml [Nss] 1,000 ml IV BOLUS
Iohexol [Omnipaque] See Protocol PO NOW STA
11/24/24 22:45
Complete Blood Count/With Diff Urgent
Comprehensive Metabolic Panel Urgent
Lipase Urgent
Magnesium Urgent
Comment: ADD ON
11/25/24 00:21
EKG [Electrocardiogram (*1)] Urgent
Reason for Study: Other
Other Reason for Exam: run of v. tach
EKG- Treatment ONCE
11/25/24 00:31
HYDROmorphone [Dilaudid] 1 mg .ROUTE .STK-MED ONE
11/25/24 00:34
HYDROmorphone [Dilaudid] 1 mg IV NOW STA
11/25/24 01:00
CT Abd/pel W Iv And Oral Contr Urgent
Reason For Exam: LLQ pain, colostomy w hernia, sm bowelobstruction
11/25/24 01:51
NG Tube [GI tube insertion- Treatment] ONCE
11/25/24 02:05
HYDROmorphone [Dilaudid] 1 mg IV NOW STA
11/25/24 02:44
Chest X-ray Portable [CR Chest Portable - 1 View] Urgent
Comment:
Reason For Exam: post-NG placement
Reason Study Needs to be Portable: Other
If Reason is Other, explain: post procedure
11/25/24 03:15
Admit/Transfer Patient As Directed
Co-Sign Provider:
Level of Care: Inpatient admission
Assign to:: Telemetry
Physician / Group: hospitalist
Diagnosis: SBO
Reason for Telemetry: Arrhythmia
Date to Stop Telemetry: 11/28/24
Time to Stop Telemetry: 11:00
Reason for Hospitalization: SBO, ng tube, ivf , pain control
Expected length of stay greater than two midnights?: Yes
ELOS- Estimated Length of Stay in days: 3
I certify the patient meets the requirements for IP care: Yes
PRN Pain Medication Management As Directed
May give lesser potent ordered pain med per pt: Yes
preference::
Protocol:: Medication orders for pain may be administered in a
manner that supports deferring to patient preference
when the pt is:
-Requesting an ordered lesser potent pain medication.
Least to most potent pain medications are defined as:
acetaminophen < NSAID < tramadol < opioids (morphine,
oxycodone, hydromorphone).
- Requesting a lesser dose of the same medication IF
ORDERED.
- Requesting a less intrusive route of administration
if both routes are prescribed by the provider (PO <
IV).
11/25/24 03:29
Add On- LAB Urgent
Tests Added?: magnesium
11/25/24 03:49
HYDROmorphone [Dilaudid] 0.5 mg IV Q2HPRN PRN
Heparin 17613 Units/250 ml 25,000 units in 250 ml IV PER PROTOCOL
Weight to be used for heparin protocol in kilograms (kg):: 82.554
Protocol:: DVT/PE
PTT Goal Range to be used:: PTT 73 to 111 seconds
Order type:: Initial
INITIAL Infusion Dose (UNITS/KG/hr) & then follow protocol:: 18 units/kg/hr
Infusion Dose in UNITS/hr & then follow protocol (UNITS/hr):: 1,500
INFUSION RATE in mL/hr & then follow protocol (mL/hr):: 15
For DVT/PE algorithm, re-bolus for low PTT?: Yes
PTT less than or equal to 64 seconds:: Re-bolus 80 units/kg (max 10,000units). Increase by 300 units/hr
(+ 3mL/hr)
PTT 64.1 to 72.9 seconds:: Re-bolus 40 units/kg (max 5,000 units). Increase by 200 units/hr
(+ 2mL/hr)
PTT 73 to 111 seconds:: Target Range. No change in rate.
PTT 111.1 to 130.9 seconds:: Decrease rate by 200 units/hr (- 2 mL/hr)
PTT 131 to 199.9 seconds:: HOLD for 1 hr. Then decrease by 300 units/hr (- 3mL/hr)
PTT greater than or equal to 200 seconds:: HOLD for 2 hrs & Notify Provider. Then decrease by 300 units/hr
(- 3mL/hr)
Lab follow-up:: Each change, PTT q6h until 2 consecutive are therapeutic. Then
PTT daily.
HydrALAZINE [Apresoline] 5 mg IV Q4HPRN PRN
Ondansetron Injectable [Zofran] 4 mg IV Q6HPRN PRN
Potassium Chloride [KCl] 20 meq 0.9% Sodium Chloride 250 ml [Nss] 250 ml IV NOW
11/25/24 03:49
Consult Notification Routine
Specialty to Notify: Surgical
Date consulting provider notified: 11/25/24
Time consulting provider notified: 07:24
Notified:: Provider
SURGICAL CONSULT Routine
Consulting Provider: Savage Prajapati
Was physician already notified: No
Reason for consult: sbo
Heparin Protocol- PTT Orders As Directed
PTT per Heparin protocol: -Obtain CBC and baseline PTT - if not already collected.
-Obtain PTT 6 hours from start of infusion. Then, every 6 hours until 2 consecutive
PTT's are therapeutic. Then, PTT Daily.
-With each rate change, obtain PTT every 6 hours until 2 consecutive PTT's are
therapeutic. Then, PTT Daily.
Bladder Scan As Directed
Follow Bladder Retention/Intermittent Cath Algorithm?: Yes
PRN if no void in __ hours: 6
Frequency: Per Retention Algorithm
If Bladder Scan Result >: 400
then:: Straight cath
Comment: may str cath prn per pt normal routine. may str cath self if desired
NG Tube [Gastrointestinal Tubes] As Directed
Type: [place] sump
To suction?: Yes
Type of suction: Low intermittent
Irrigate tube?: Yes
Irrigant: Tap Water
Frequency: Q4H
Amount in mls: 30
Irrigation Directions: Irrigate Q4H and PRN
Notify MD As Directed
Notify physician if: PTT is greater than or equal to 200.
Straight Cath As Directed
Frequency: q6h
Patient may straight cath themselves: Yes
Additional Instructions: q6h and prn
11/25/24 03:56
PTT Urgent
Comment: Obtain baseline before beginning heparin infusion if not already collected
11/25/24 04:00
Dextrose 5%/Lactringers 1000ML [D5lr] 1,000 ml IV 75 mls/hr
11/25/24 05:25
Basic Metabolic Panel IN AM
Complete Blood Count/With Diff IN AM
11/25/24 Breakfast
NPO
Allow oral meds: Yes
Allow clear liquids: Sips of Clears
NPO with Ice Chips: Yes
11/25/24 08:00
Pantoprazole [Protonix IV] 40 mg IV DAILY
11/27/24 09:00
Complete Blood Count/No Diff Q2D
Comment: Notify MD if platelet count is <130,000 or decreases by 50% from baseline
11/28/24 11:00
DC Protocol for Telemetry ONCE
Abnormal Lab Results
11/24/24
22:45
RBC 4.56 L 10^6/uL
(4.70-6.10)
Hgb 12.9 L g/dL
(13.0-18.0)
Absolute Neuts (auto) 8.2 H 10^3/uL
(1.4-6.5)
Neutrophils % 77.1 H %
(42.2-75.2)
Lymphocytes % 16.1 L %
(20.5-51.1)
BUN 24 H mg/dl
(9-20)
Glucose 137 H mg/dl
(70-99)
Magnesium 1.5 L mg/dl
(1.6-2.3)
11/24/24 22:45
11/24/24 22:45
Vital Signs
Initial and Last Documented VS:
Initial Vital Signs
Temp Pulse Resp BP Pulse Ox
98.0 F 107 18 157/82 100
11/24/24 22:19 11/24/24 22:19 11/24/24 22:19 11/24/24 22:19 11/24/24 22:19
Last Documented Vital Signs
Temp Pulse Resp BP Pulse Ox
98.2 F 85 20 168/90 98
11/27/24 11:28 11/27/24 11:28 11/27/24 11:28 11/27/24 11:28 11/27/24 11:28
<Lizy Morris BOATING SAFETY OFFICER - Last Filed: 11/29/24 08:33>
MDM/Problems Addressed
Differential Diagnosis Includes:
Bowel obstruction
MDM/Problems Addressed:
59-year-old male with a T2 spinal cord injury and paraplegia, A-fib on Eliquis, HTN, HLD, small bowel obstruction 2019, neurogenic bladder with urinary retention diversional colonoscopy 30 years ago due to a wound on his buttocks requiring a flap
and muscle rotation to keep the stool away from the wound. He states he awakened at 5 AM with lower abdominal pain. He denies nausea or vomiting. He denies fever or chills. He states no colostomy bag output since 5 AM
Afebrile, NAD
11:00 PM:
CBC unremarkable
CMP with no clinically significant abnormality
Lipase normal
11/25/2024 12:16 AM:
Patient's monitor showed a run of 10 beats of V. tach. EKG done immediately afterwards shows NSR. Patient states he was unaware as he was sleeping
Dr. Bacon in and evaluated patient.
1:00 a.m.
No further cardiac dysrhythmia
Pt is comfortable
Awaiting Ct scan
Dr. Bacon will assume care from this point.
<Yamil Bacon, DO - Last Filed: 11/25/24 02:40>
*Radiology
Radiology exam reviewed: preliminary read by ED provider (CT abdomen pelvis shows small bowel obstruction) and radiology read reviewed (CT abdomen pelvis shows small bowel obstruction)
*Pulse Oximetry
Patient hypoxic: no
*EKG
Interpreted by ED Provider?: Yes
EKG Intrepretation Date: 11/25/24
EKG Intrepretation Time: 00:27
Interpretation: normal
Comparison EKG: changes noted
Heart Rate: 85
Rate: normal
Rhythm: sinus
[place]: normal axis
Interval: normal interval
QRS Pattern: normal QRS
Ischemia: no ischemia
*Green House Manager Interpretation
Rate: normal
Interpretation: normal
Heart Rate: 84
Rhythm: sinus
*Critical Care Note
Total Time (30-74mins, 75-104mins- exclusive of procedures): Not Applicable
<Yamil Bacon DO - Last Filed: 11/25/24 02:40>
Patient Management
Social determinants of health affecting care: Living situation
Discussion with other providers: Hospitalist, Overnight Houseperson and Radiologist
Escalation/DeEscalation of care consider admission/obs:
admit indicated
ED Attending Note
<Lizy Morris, BOATING SAFETY OFFICER - Last Filed: 11/29/24 08:33>
-
Portions of this chart may have been created with voice recognition software.� Occasional wrong word or��sound alike� substitutions may have occurred due to the inherent limitations of voice recognition software.
<Yamil Bacon DO - Last Filed: 11/25/24 02:40>
ED Attending Note
Patient seen and examined by attending physician: Yes
ED Attending Note:
I have reviewed and agree with history and treatment plan by Naz morris. My exam revealed 59-year-old male with lower abdominal pain. Tender to palpation bilateral lower quadrant. This feels similar to his bowel obstruction in the past.
Discharge Plan
Departure
Patient Disposition: Admit
Date of Disposition: 11/25/24
Time of Disposition: 02:01
Admit to: Telemetry
Presentation/result/management discussed w/ accepting MD/DO: Hospitalist
Patient with high blood pressure during this ER visit?: No
Condition: Good
Discharge Problem:
Small bowel obstruction, Ventricular tachycardia (paroxysmal)
Interventions
Interventions:
*Risk Screen - Suicide Last Done: 11/24/24 22:19
*General Assessment Last Done: 11/24/24 22:19
*Neglect/Abuse Screening Last Done: 11/24/24 22:19
*ED- Fall Risk Assessment Last Done: 11/25/24 05:04
*ED COVID-19 Vaccine History Last Done: 11/24/24 22:19
*Nursing Disposition Last Done: 11/25/24 19:54
XY-Tqjhhl-Adgybsfqix Assessment Last Done: 11/24/24 23:00
Discharge Date and Time
Discharge Date/Time: 11/25/24 20:00
--- NOTE | 2024-11-25 01:06 | EDRN ---
While sleeping, monitor and storage bin tender showed event of what appeared to be few beat runs of V. tach. Pt. was sleeping during event, refer to scanned documents for cardiac strip. EKG completed, PEDIATRIC DENTAL HYGIENIST and Dr. Bacon aware, pt. denies chest pain, states 'I was
sleeping, I didn't feel anything wrong'.
--- NOTE | 2024-11-25 03:10 | HPS.HSE ---
Family Physician
-
Family Physician: iRchie Francois
Chief Complaint
-
Abdominal pain
History of Present Illness
This is a 59-year-old who has a history of traumatic injury with paraplegia, chronic right hip wound with extensive surgical debridement and being cared for by combination of avionics systems integration specialist and infectious disease doctors at [place], DVT on
Eliquis, urinary retention secondary to neurogenic bladder status post straight cath, apparent chronic osteo with suppressive ciprofloxacin, recurrent small bowel obstructions on the basis of adhesions and hernia presenting to the emergency
department with acute abdominal pain.
Patient reports pain started yesterday. Was able to tolerate it for a while however this morning he reported that he colostomy bag was filled with gas and about the possible. When he changed the colostomy bag was only having liquid output. He
reported that he had very well the day before and was expecting solid output as usual. He started getting abdominal pain thereafter. Denies vomiting. He does report nausea. His pain is crampy and nonradiating. He localizes it to the left lower
quadrant.
He also reported that a straight cath today yielded straw-colored urine. He reported some right-sided flank pain. He reported chronic chills which he states is unchanged from baseline. He denies any chest pain.
While in the emergency department he had a 8 beat run of V. tach. Patient said his had prior episodes in the past and he only notices it when he is being monitored on telemetry. He is having Holter monitor in the past. He reports that he usually
has low heart rate at baseline and was never placed on any beta-sendy blood otherwise tells me no further workup has been investigated. He denies any prior history of CAD. He denies any prior history of syncope. No history of cardiac arrest.
In the emergency department he was afebrile with a temp of 98, blood pressure was 120/67 with a pulse of 72 and was satting 98% on room air. ECG shows normal sinus rhythm at a rate of [address] or T wave changes.
His CBC showed a white count of 10 and hemoglobin and platelets were unremarkable. Electrolytes BUN/creatinine were stable.
CT of the abdomen pelvis:
High-grade small bowel obstruction in the left lower quadrant with a transition point in the left lower quadrant near the opening to the left lower quadrant parastomal hernia. The distal small bowel is relatively decompressed.
Extensive chronic changes involving the pelvic bones with large decubitus ulcers and extensive heterotopic ossification especially around the right hip and proximal right femur. There is once again fluid extending along the anterior proximal right
femur.
Partial colectomy
No findings of pyelonephritis noted.
Medical History
Past Medical History
Past Medical History: Reports Other
Additional Past Medical History:
Diabetes Mellitus, Type
Essential Hypertension
Bilateral Lower Ext DVT
T12 Spinal Injury with Paraplegia
Neurogenic Bladder-self caths every 6 hours
Chronic Sacral/Left Ankle Pressure Wounds
dvt left leg
Past Surgical History: Reports Other
Additional Past Surgical History:
Diverting Colostomy
Penile Implant
Multiple Spinal Surgeries/Fusion
Social History
Tobacco: Other (Occasional Cigar)
Drug: Marijuana
Personal:
Living: Alone
Employment: Disabled
Family History
Family History: Other (Mother, father, sister DM 2)
Allergies / Home Medications
Allergies reflects when Allergies were last updated in [employer]
Home Medications with original date entered in [employer]
Allergy/Medication List:
Allergies
Allergy/AdvReac Type Severity Reaction Status Date / Time
ceftriaxone Allergy Mild Rash/pt Verified 10/02/23 12:49
denies.
Tolerated
cefepime.
Sulfa (Sulfonamide Allergy BLISTERS Verified 10/02/23 12:49
Antibiotics) IN MOUTH
sulfisoxazole Allergy BLISTERS Verified 10/02/23 12:49
IN MOUTH
Home Medications
Medicinal Marijuana 0 dose inhalation HSPRN PRN sleep 01/15/22
lorazepam 1 mg tablet (Ativan) 1 mg PO HS 01/15/22
acetaminophen 500 mg tablet (Tylenol Extra Strength) 1,000 mg PO Q4H PRN mild pain 05/12/23
apixaban 5 mg tablet (Eliquis) 5 mg PO BID Blood clot prevention/tx 05/12/23
collagenase clostridium histo. 250 unit/gram topical ointment (Santyl) 1 applic topical DAILY PRN apply to right hip/left ankle wound 05/12/23
losartan 100 mg-hydrochlorothiazide 25 mg tablet 1 tab PO DAILY Blood Pressure 05/12/23
oxybutynin chloride 10 mg tablet,extended release 24 hr 10 mg PO DAILYPRN PRN overactive bladder 05/12/23
therapeutic multivitamin 1 tab PO DAILY Supplement 05/12/23
amlodipine 5 mg tablet (Norvasc) 5 mg PO DAILY 10/02/23
ciprofloxacin HCl 500 mg tablet (Cipro) 500 mg PO BID 10/02/23
Review of Systems
-
History Source: Patient
A 12 point ROS was completed and negative except as noted: Yes
Constitutional: Reports Chills; Denies Fever
EENT: Denies Sore Throat or Runny Nose
Respiratory: Denies Cough or Trouble Breathing
Cardiac: Denies Chest Pain, Palpitations or Syncope
Abdomen/GI: Reports Other (Chronic diverting colostomy); Denies Abdominal Pain, Nausea, Vomiting or Diarrhea
: Reports Flank Pain and Other (Strict, straw-colored urine); Denies Dysuria, Frequency or Incontinence
Musculoskeletal: Denies Joint Pain or Edema
Skin: Reports Other (Right hip decub stage IV with surrounding erythema, expansion of prior existing wound. Showed me picture. Unchanged from recent wound care evaluations. ); Denies Itching or Rash
Neurological: Denies Dizzy or Headache
Endocrine: Reports No Symptoms
Hematologic/Lymphatic: Reports No Symptoms
Psych: Reports Calm
Physical Exam
Vital Signs
Vital Signs
Temp Pulse Resp BP Pulse Ox
98.0 F 77 19 120/67 99
11/24/24 22:19 11/25/24 01:15 11/25/24 01:15 11/25/24 01:00 11/24/24 22:21
Physical Exam
General: Comfortable, Conversant and Chills
HEENT: NormoCephalic, Anicteric, PERRLA, [place] Conjunctivae and No Ptosis
Respiratory: Clear; No Wheezes, Rales or Rhonchi
Cardiac: S1/S2 and Regular Rhythm; No Murmur, Rub, Gallop or Peripheral Edema
Breast: Deferred by me
GI: Soft, Non Tender, Non Distended, Normal Bowel Sounds and Ostomy (Chronic diverting colostomy)
Genito-urinary: Deferred by me
Musculoskeletal: No Clubbing, No Cyanosis, No Edema and Other (Right hip decub stage IV with surrounding erythema, expansion of prior existing wound)
Skin: Warm, Dry and Decubitus Ulcers (Right hip decub stage IV with surrounding erythema, expansion of prior existing wound, paraplegia T12 down)
Neuro: AO x 3 and Other (Chronic paraplegia T12 down); No Slurred Speech, Facial Droop, Tremors or Sedated
Psych: Calm
Laboratory Results
-
11/24/24 22:45
11/24/24 22:45
Laboratory Results
Total Bilirubin 0.6 mg/dl (0.2-1.3) 11/24/24 22:45
AST 21 U/L (17-59) 11/24/24 22:45
ALT 21 U/L (0-50) 11/24/24 22:45
Alkaline Phosphatase 83 U/L (38-126) 11/24/24 22:45
Lipase 56 U/L (23-300) 11/24/24 22:45
Data Reviewed
-
CT Scan: Report Reviewed by me
Medical Tests (Nuc Med, Echo, EKG etc): Image Personally Visualized and interpreted
Lab Data: Labs Reviewed by me
Old Records: Reviewed
Impression/Plan
-
IMPRESSION:
59-year-old with history of small bowel obstruction coming in with recurrent episode of small bowel obstruction and likely in the base of adhesions. CT scan showing high-grade small bowel obstruction in the left lower quadrant with a transition
point in the left lower quadrant near the opening to the left lower quadrant parastomal hernia. Status post NG decompression placed in the ED.
While in ED developed shortness 8 beat run of V. tach. Asymptomatic.
Newly developed straw colored urine and flank pain
Chronic decubitus ulcer.
PLAN:
SBO - Recurrent SBO
- admit to telemetry
- NG tube to low intermittent suction
- pain control and antiemetics
- ppi iv daily
- IV fluids with d5 LR
- surgical consult
Non-sustained VT - Patient asymptomatic. Prior hx of palpitations s/p holter monitor.
- telemetry for now
- check troponin.
- keep K, Mag > 4,2
- echo in am
- patient not on any cardiac meds and has no known cardiac hx
Possible UTI with flank pain - No pyelo on CT. Adamant that his urine is usually clear
- u/a and urine cultures
- abx if positive u/a or spike fevers
Chronic wound/chronic osteo
- ostomy consult
- continue suppressive cipro (400mg iv hs for now)
DVT - hx of DVT, paraplegic on eliquis
- while npo, place on heparin gtt
Code status - DNR
[2024-11-25 04:09] LABS: Urine Albumin 2+ (Neg - Trace); Urine Bilirubin Negative (Negative); Urine Character Slightly Cloudy (Clear); Urine Color Yellow; Urine Glucose Negative (Negative); Urine Ketone Negative (Negative); Urine Leukocyte 3+ (Negative); Urine Nitrite Positive (Negative); Urine Occult Blood 3+ (Negative); Urine Specific Gravity 1.015 (<1.030); Urine Urobilinogen Negative (Neg - 1+)
[2024-11-25 04:11] LABS: Magnesium 1.5 mg/dl (1.6-2.3)
[2024-11-25 04:19] LABS: APTT 37.1 Sec (23.4-35.0)
[2024-11-25] MEDS: D5LR 1000 IV ×2 (04:19→17:52)
[2024-11-25] MEDS: KCL 260 MEQ IV (04:22)
[2024-11-25 04:55] LABS: Urine Bacteria Few (Negative); Urine Red Blood Cell None Seen /HPF (0-2); Urine Squamous Cell None seen /LPF (Few); Urine White Cell >100 /HPF (0-5)
[2024-11-25] MEDS: HEPARIN 25000 UNITS/250 ML IV ×2 (05:26→20:25)
[2024-11-25 05:49] LABS: % Basophils 0.3 % (0-2); % Eosinophils 0.3 % (0-6); % Immature Granulocytes 0.3 % (0-0.5); % Monocytes 5.6 % (1.7-9.3); % Neutrophils 75.5 % (42.2-75.2); Absolute Lymphocytes 1.6 10^3/uL (1.2-3.4); Absolute Monocytes 0.5 10^3/uL (0.1-0.6); Absolute Neutrophils 6.6 10^3/uL (1.4-6.5); Hematocrit 36.5 % (39.0-52.0); Mean Corp Hgb Conc. 32.9 g/dL (33.0-37.0); Mean Corpuscular Hgb 27.8 pg (27.0-31.0); Mean Corpuscular Volume 84.7 fL (80.0-94.0); Mean Platelet Volume 10.3 fL (7.4-10.4); Nucleated Red Blood Cells % 0 % (-); Platelet Count 289 10^3/uL (130-400); Red Blood Cell Count 4.31 10^6/uL (4.70-6.10); Red Cell Dist. Width 13.6 % (11.5-14.5); White Blood Cell Count 8.7 10^3/uL (4.8-10.8)
[2024-11-25 06:15] LABS: Blood Urea Nitrogen 23 mg/dl (9-20); Calcium 8.6 mg/dl (8.4-10.2); Carbon Dioxide 25 mmol/L (22-30); Chloride 110 mmol/L (98-107); Estimated Creatinine Clearance 100 ml/min; Glucose 167 mg/dl (70-99); Sodium 142 mmol/L (135-145); eGFR > 60.00
--- NOTE | 2024-11-25 07:53 | W.PN.HOSP.TC ---
Today's Communication/Plan
-
see A/P
Assessment / Plan
Assessment / Plan
HPI: 59-year-old who has a history of traumatic injury with paraplegia, chronic right hip wound with extensive surgical debridement and being cared for by combination of renal medicine specialist and infectious disease doctors at [place], DVT on Eliquis,
urinary retention secondary to neurogenic bladder status post straight cath, apparent chronic osteo with suppressive ciprofloxacin, recurrent small bowel obstructions on the basis of adhesions and hernia; p/w acute abdominal pain that started on the
DOA.
In the morning, he reported that he colostomy bag was filled with gas. He changed the colostomy bag, and only noted liquid output. He started getting abdominal pain thereafter. Denies vomiting but report nausea. His abd pain is crampy and
nonradiating. He localizes it to the left lower quadrant.
He also reported that straight cath on DOA yielded straw-colored urine. He reported some right-sided flank pain. He reported chronic chills which he states is unchanged from baseline.
While in the emergency department he had a 8 beat run of V. tach. Patient said his had prior episodes in the past and they are only noticed when he is being monitored on telemetry. He had Holter monitor in the past. He denies any prior history of
CAD. He denies any prior history of syncope. No history of cardiac arrest.
CT AP prelim read:
High-grade small bowel obstruction in the left lower quadrant with a transition point in the left lower quadrant near the opening to the left lower quadrant parastomal hernia. The distal small bowel is relatively decompressed.
Extensive chronic changes involving the pelvic bones with large decubitus ulcers and extensive heterotopic ossification especially around the right hip and proximal right femur. There is once again fluid extending along the anterior proximal right
femur.
Partial colectomy
No findings of pyelonephritis noted.
A/P:
# Recurrent SBO
Follow formal CT AP report (still pending currnetly)
NG tube placed, cont low intermittent suction
NPO with IVF currently on d5 LR
pain control and antiemetics
ppi iv daily
surgical consult
# Non-sustained VT - Patient asymptomatic. Prior hx of palpitations s/p holter monitor.
# hypomagnesemia
patient not on any cardiac meds and has no known cardiac hx
Cont telemetry
check troponin.
replete Mag
Card CS
# Possible UTI with flank pain - No pyelo on CT. Adamant that his urine is usually clear
Follow urine Cx
Noted pt already on suppressive cipro for chronic osteo
# Chronic wound/chronic osteo
Wound care CS
continue suppressive cipro (400mg iv hs for now)
DVT - hx of DVT, paraplegic on eliquis, while npo, place on heparin gtt
Code status - DNR, confirmed with pt
total time 51 min
Anticipated Discharge: > 48 hours
Subjective/Interval History
-
Date of Service: November 25, 2024
Objective Data
-
Labs:
Laboratory Results
11/24/24 11/25/24 11/25/24
22:45 03:56 05:25
WBC 10.6 8.7
Hgb 12.9 L 12.0 L
Hct 39.1 36.5 L
Plt Count 333 289
APTT 37.1 H
Sodium 141 142
Potassium 3.7 4.0
Chloride 106 110 H
Carbon Dioxide 27 25
BUN 24 H 23 H
Creatinine 1.0 0.8
Glucose 137 H 167 H
Calcium 9.4 8.6
Total Bilirubin 0.6
AST 21
ALT 21
Alkaline Phosphatase 83
11/25/24
11:30
WBC
Hgb
Hct
Plt Count
APTT Pending
Sodium
Potassium
Chloride
Carbon Dioxide
BUN
Creatinine
Glucose
Calcium
Total Bilirubin
AST
ALT
Alkaline Phosphatase
Vital Signs:
Vital Signs
Temp Pulse Resp BP Pulse Ox
36.7 C 70 7 146/81 99
11/25/24 07:01 11/25/24 06:15 11/25/24 06:15 11/25/24 06:00 11/24/24 22:21
Review of Systems
-
History Source: Patient
Abdomen/GI: Reports Abdominal Pain
Physical Exam
-
General: Well Nourished, No Apparent Distress, Comfortable and Appears Chronically Ill; Negative Respiratory Distress
HEENT: Other (NGT); Negative Oxygen
Respiratory: Clear to Auscultation and Non Labored Respirations; Negative Accessory Resp Muscle Use
Cardiac: Regular Rhythm and S1/S2
GI: Soft, Nondistended, Tender and Ostomy; Negative Normal Bowel Sounds
Skin: Warm and Dry
Neuro: Awake, Alert, Oriented and Other (paraplegic)
Psych: Calm and Intact Judgement/Insight
Data Reviewed
-
Labs: Labs Reviewed by me
--- NOTE | 2024-11-25 08:24 | VNURNOTE ---
Chart reviewed. Patient is current with [facility] nursing. Will continue to follow hospital course and DC plans.
[2024-11-25] MEDS: MAGNESIUM SULFATE 50 IV (08:40)
[2024-11-25] MEDS: PROTONIX IV 40 MG IV (08:40)
[2024-11-25] MEDS: NSS (PRESERVATIVE FREE) 10 ML IV (08:40)
[2024-11-25 09:22] LABS: Troponin I < 0.012 ng/ml
--- NOTE | 2024-11-25 09:47 | WOUNDNOTE ---
R LATERAL FOOT AND 5TH TOE
--- NOTE | 2024-11-25 09:48 | WOUNDNOTE ---
R ISCHIAL SKIN CREASE
--- NOTE | 2024-11-25 09:50 | WOUNDNOTE ---
LOWER LEGS AND HEELS
--- NOTE | 2024-11-25 09:53 | WOUNDNOTE ---
L LATERAL LOWER LEG
--- NOTE | 2024-11-25 09:55 | WOUNDNOTE ---
WON RN note: Patient admitted with small bowel obstruction.
See H&P for complete history. Lives alone able to manage independently.
PMH: NIDDM, T12 paraplegia since age 15, 02/04/20 epidural abscess, colostomy, neurogenic bladder, self catheterizes, inflatable penile prosthesis and multiple PI's, + osteomyelitis R hip stage 4 PI. skin flaps, A fib and HTN.
Wound Location and type/assessment: Patient last seen on 05/13/23 for multiple chronic PI's. R hip with larger stage 4 PI, faint odor, base pink mixed with solis slough, 1cm at deepest. R ischial skin crease with small patch of red skin, suspect
moisture related. R great toe with skin tear and intact blood blister. R lateral 5th toe with old intact scab. Wound on L ischium has re opened, suspect stage 3 vs unstageable PI, base mostly solis moist slough. Sacrum remains healed with dryness and
blanchable pink skin. L lateral ankle with healed PI, thin dry flaky skin. L lateral lower leg with shallow wrinkled patch of skin, suspect blister, blanchable heels. Patient states he still goes to [facility] and has Visiting
nurses. In btw VN he manages to do dressings himself, using Vashe to clean then Santyl and absorbent dressings for wound care. Has a large parastomal hernia, uses a hernia belt at home, has not used recently. Colostomy changed yesterday by patient
independently, using own [employer] supplies. Confirmed no peristomal skin issues. Patient reports no output. CT of abdomen done, surgery on consult. Patient cooperative with care and turned self. Has a specialty offloading bed at home and gets oob
to wheelchair independently, offloading cushion in use.
Appetite: NPO has NGT in use for moderate output.
Pressure redistribution devices in place: Patient currently on Accumax bed, placed air chair cushion under R hip when turned to R side. Called [facility] for Air bed, nurse made aware and will switch bed when able. Pillow under calves.
Plan: Local wound care done today. Will order Vashe to clean wounds, Santyl then Mesalt and absorbant dressing for R hip and L ischium. R great toe applied adaptic and dry gauze. All other sites silicone foams applied. Will order fungal powder for
skin folds and R ischial skin crease daily and prn moisture.
Will confirm orders with hospitalist, update care plan and nurse updated on the above. Will follow as needed.
Note to case management requested for discharge: resume VN services.
Recommend return to [facility] upon discharge.
[2024-11-25] MEDS: DILAUDID 0.5 MG IV (10:59)
[2024-11-25 11:43] LABS: APTT 57.3 Sec (23.4-35.0)
--- NOTE | 2024-11-25 11:55 | CON.GS ---
Addendum entered and electronically signed by Savage Prajapati MD 11/25/24 15:20:
I saw and examined the patient.
The resident's note was reviewed and I agree with the note with the following additions/corretions.
Comment: 59M p/w abd pain and lack of stoma output for <24 hrs. He ate carrots and has had an SBO after eating carrots in the past. Endorses nausea. Denies fever. Pain mostly to LLQ, crampy. Known parastomal hernia. AFVSS, labs unremarkable. CT
shows dilated sb loops within the parastomal hernia, apparent transition point adjacent to the defect, and collapsed end colostomy limb within the hernia. No PV gas, no pneumatosis, no free air. On exam the hernia is soft and reducible, minimally
tender. The stoma pouch is flat. Rec observation. NPO/IVF. NGT if develops vomiting. Monitor for stoma function. Hold eliquis.
Original Note:
Consultation
-
Date/Time Consultation Requested: 11/25/24 3:25 AM
Date/Time Consultation Performed: 11/25/24 10:30 AM
Requesting Provider: Uzma Mireles
Performing Provider: Savage Tavarez
Reason for Consultation: Small bowel obstruction
Medical History
-
Chief Complaint: Abdominal pain
History of Present Illness:
This is a 59-year-old male, DNR, with a PMH of traumatic injury with paraplegia, chronic right hip wound with extensive surgical debridement and being cared for by combination of teacher specialist and infectious disease doctors at [facility] on
Eliquis, urinary retention secondary to neurogenic bladder status post straight cath, apparent chronic osteo with suppressive ciprofloxacin, recurrent small bowel obstructions on the basis of adhesions and hernia presenting to the emergency
department with acute abdominal pain.
Pain started today medicaid service coordinator. He describes the pain as crampy, intermittent, non radiating, and on the left lower quadrant of abdomen. The pain started after he changed his colostomy bag today morning after noticing gas in the bag. He states
that he had a large fibrous meal yesterday consisting of carrots, which is not part of his regular diet. Associated with chills and nasuea. Denies vomiting, hematemesis, shortness of breath, chest pain, recent use of opiods.
On admission, he was afebrile with a temp of 98, blood pressure was 120/67 with a pulse of 72 and 98% Oxygen sat on room air. ECG shows normal sinus rhythm at a rate of [address] or T wave changes.
On admission, labs showed a white count of 10 and hemoglobin and platelets were unremarkable. Electrolytes BUN/creatinine were stable.
CT of the abdomen pelvis:
High-grade small bowel obstruction in the left lower quadrant with a transition point in the left lower quadrant near the opening to the left lower quadrant parastomal hernia. The distal small bowel is relatively decompressed.
Past Medical History
Past Medical History: Other (See HPI)
Past Surgical History: Other (bowel resection ( colostomy) and orthopedic ( spinal fusion))
Social History
Tobacco: Non-Smoker
Alcohol: None
Drug: None
Personal:
Living: Alone
Allergies / Home Medications
Allergy/AdvReac Type Severity Reaction Status Date / Time
ceftriaxone Allergy Rash/pt Verified 10/02/23 18:17
denies.
Tolerated
cefepime.
Sulfa (Sulfonamide Allergy BLISTERS Verified 10/02/23 18:17
Antibiotics) IN MOUTH
sulfisoxazole Allergy BLISTERS Verified 10/02/23 18:17
IN MOUTH
�Medication �Instructions �Recorded �Confirmed �Type
lorazepam 1 mg tablet (Ativan) 1 mg PO BIDPRN PRN anxiety 01/15/22 11/25/24 History
apixaban 5 mg tablet (Eliquis) 5 mg PO BID Blood clot 05/12/23 11/25/24 History
prevention/tx
losartan 100 1 tab PO DAILY Blood Pressure 05/12/23 11/25/24 History
mg-hydrochlorothiazide 25 mg tablet
therapeutic multivitamin 1 tab PO DAILY Supplement 05/12/23 11/25/24 History
amlodipine 5 mg tablet (Norvasc) 10 mg PO DAILY Blood Pressure 10/02/23 11/25/24 History
ciprofloxacin HCl 500 mg tablet 500 mg PO QHS Infection 10/02/23 11/25/24 History
(Cipro)
oxybutynin chloride 10 mg 10 mg PO DAILYPRN PRN bladder 11/25/24 11/25/24 History
tablet,extended release 24 hr spasms
pantoprazole 40 mg tablet,delayed 40 mg PO DAILY 11/25/24 11/25/24 History
release (Protonix)
pregabalin 75 mg capsule (Lyrica) 75 mg PO BID 11/25/24 11/25/24 History
Review of Systems
-
History Source: Patient
All other systems: Negative unless noted
Constitutional: Chills
Abdomen/GI: Abdominal Pain and Nausea
A 10 point review of systems was completed, and was negative except as per HPI.
Physical Exam
Vital Signs
Temp Pulse Resp BP Pulse Ox
98.1 F 80 9 123/68 99
11/25/24 07:01 11/25/24 09:15 11/25/24 09:15 11/25/24 09:00 11/24/24 22:21
11/24/24 11/25/24 11/26/24
06:59 06:59 06:59
Actual Weight 82.554 kg
Body Mass Index (BMI) 26.1
Lab Results
11/25/24 05:25
11/25/24 05:25
WBC 8.7 10^3/uL (4.8-10.8) 11/25/24 05:25
Hgb 12.0 g/dL (13.0-18.0) L 11/25/24 05:25
Hct 36.5 % (39.0-52.0) L 05/15/25 05:25
Plt Count 289 10^3/uL (130-400) 11/25/24 05:25
Abs Immat Gran (auto) 0.0 10^3/uL (0-0.05) 11/25/24 05:25
Neutrophils % 75.5 % (42.2-75.2) H 11/25/24 05:25
Physical Exam
GI: Tender (tenderness to palpation of umbilical region. Colostomy bag intact, secure, and no leakage. Moderate sized parastomal hernia, soft, partially reducible, tender to palpation, no signs of strangulation)
Musculoskeletal: Other (Paraplegic with B/L lower extremity contractures)
Skin: Warm and Dry
Neuro: Awake, Alert, Oriented and AO x 3
Psych: Calm
Data Reviewed
-
Radiology: Report Reviewed by me and Discussed with Physician
CT Scan: Report Reviewed by me and Discussed with Physician
Labs: Labs Reviewed by me and Discussed with Physician
Assessment / Plan
-
Recurrent small bowel obstruction
Previous surgical history of colostomy
Parastomal hernia:
- Small bowel obstruction is confirmed on CT scan
- Patient is afebrile, no leucocytosis, BP is stable, and HR is normal, Creatinine function normal
- His physical examination shows tenderness to palpation of umbilical region. Colostomy bag intact, secure, and no leakage. Moderate sized parastomal hernia, soft, partially reducible, mild tenderness to palpation, no signs of strangulation
- Possible Cause of hernia include adhesions from previous surgery vs parastomal hernia
- No signs of strangulation/incarceration like non reducibility, severe tenderness, peritonitis, unstable vitals
- Based on physical exam, imaging findings, and labs we recommend non surgical management. This incudes continuing patient on NPO, decompression with NG tube,IV fluids with LR, pain control with dilaudid, and protonix IV for GI ppx.
As per management of medical team:
-Non-sustained VT , Prior hx of palpitations s/p holter monitor.
-hypomagnesemia
-Possible UTI with flank pain
-Chronic wound/chronic osteo
Wound care CS
continue suppressive cipro (400mg iv hs for now)
DVT - heparin gtt
DNR
[2024-11-25] MEDS: HEPARIN 6600 UNITS IV (11:57)
[2024-11-25] MEDS: ZOFRAN 4 MG IV (13:17)
--- NOTE | 2024-11-25 13:56 | CON.CAR ---
Addendum entered and electronically signed by León Shah MD 11/25/24 16:30:
Patient seen and examined
Agree with NAUN Vaca's note and assessment
Agree with NAUN Vaca's plan
Seen in the emergency room
Reviewed telemetry and studies
Exam:
NG tube in place
Alert and x 3
Distended abdomen which is tender
Lungs clear to auscultation bilaterally
Cor regular no murmurs rubs or gallop
JVP 6
He is paraplegic
Impression:
Admitted with SBO 11/24/24
Recurrent SBO
NSVT, 10 beats 11/25/24
Hypomagnesemia
Paraplegia s/p traumatic T12 injury at age 15
Chronic neurogenic bladder
h/o UTIs
Fever managed as UTI as an outpatient 11/12/24Recurrent sacral decubitus wounds
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
s/p multiple muscle flap and skin graft procedures
Recurrent right hip wound
HTN
DM 2
Echo 11/25/24: Study pending
Plan:
-Treatment of small bowel obstruction as you are. If he requires emergency surgery can proceed with emergency surgery and we will address any cardiovascular complication as it arises. If observant management is planned we certainly will check
echocardiogram and plan outpatient ischemic testing based upon his dyspnea on exertion symptoms.
-Check echo-ordered
-Keep K greater than 4 mag greater than 2. I believe his NSVT was related to hypomagnesemia
-Patient reports LAST in the last 1-2 months, but was also treated for LE edema due to ham intake over the . Pending echo will consider eventual outpatient stress test.
-Patient reports that he is being considered for an extensive flap surgery to repair his recurrent right hip wound, but that his plastic surgeon in [facility] is having trouble finding another surgeon to assist him. As such I do think for this elective
surgery that ischemic testing would be considered and we can arrange an outpt stress test as needed
Original Note:
Consultation
Consultation Request
Date/Time Consultation Requested: 11/25/24
Date/Time Consultation Performed: 11/25/24
Requesting Provider: Dr. Cody
Performing Provider: Dr. Shah
Reason for Consultation: NSVT
Medical History
-
History of Present Illness:
Patient came to the ER with lower abdominal pain and decreased colostomy output and is now being admitted with SBP and cardiology is consulted for NSVT on tele. Patient had a fall and traumatic T12 injury at age 15. Patient has had sacral wounds
that required muscle flap and skin graft repairs and eventually had a diverting colostomy in . Patient says he has been eating more carrots and this likely led to SBO. He says a similar thing has happened in the past and he forgot that he
shouldn't eat so many carrots. Patient now admitted with NG tube. Cardiology is consulted for a 10 beat run of NSVT on tele. Patient was asleep at the time, but says that someone told him later about the NSVT. He denies any recent lightheadedness or
chest pain. Patient has noted increased LAST starting 1-2 months ago. Patient performs all of his own transfers and self-propels his chair, although this has been limited lately because of another sacral wound. He also had some LE edema and fluid
[place] that he says was related to eating ham and that Dr. Francois prescribed Lasix for a few days and edema resolved.
PMH:
Paraplegia s/p traumatic T12 injury at age 15
Chronic neurogenic bladder
h/o UTIs
Fever managed as UTI as an outpatient 11/12/24
Recurrent sacral decubitus wounds
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
s/p multiple muscle flap and skin graft procedures
Recurrent right hip wound
HTN
DM 2
h/o SBO
Past Medical History
Past Medical History: Other (in HPI)
Past Surgical History: Orthopedic (thoracic and cervical spine fusions), Tonsilectomy and Other (diverting colostomy, multiple muscle flaps and skin grafts)
Social History
Tobacco: Former Smoker (smoked cigarettes age [age], now smokes cigars occasionally)
Alcohol: Other (1-2 beers a week)
Drug: None
Living: Alone
Employment: Retired (from [employer])
Family History
Family History: Hypertension and Other (patient's father is currently admitted to [facility], father with CKD, Afib. mother with CLL)
Allergies / Home Medications
Allergy/AdvReac Type Severity Reaction Status Date / Time
ceftriaxone Allergy Rash/pt Verified 10/02/23 18:17
denies.
Tolerated
cefepime.
Sulfa (Sulfonamide Allergy BLISTERS Verified 10/02/23 18:17
Antibiotics) IN MOUTH
sulfisoxazole Allergy BLISTERS Verified 10/02/23 18:17
IN MOUTH
�Medication �Instructions �Recorded �Confirmed �Type
lorazepam 1 mg tablet (Ativan) 1 mg PO BIDPRN PRN anxiety 01/15/22 11/25/24 History
apixaban 5 mg tablet (Eliquis) 5 mg PO BID Blood clot 05/12/23 11/25/24 History
prevention/tx
losartan 100 1 tab PO DAILY Blood Pressure 05/12/23 11/25/24 History
mg-hydrochlorothiazide 25 mg tablet
therapeutic multivitamin 1 tab PO DAILY Supplement 05/12/23 11/25/24 History
amlodipine 5 mg tablet (Norvasc) 10 mg PO DAILY Blood Pressure 10/02/23 11/25/24 History
ciprofloxacin HCl 500 mg tablet 500 mg PO QHS Infection 10/02/23 11/25/24 History
(Cipro)
oxybutynin chloride 10 mg 10 mg PO DAILYPRN PRN bladder 11/25/24 11/25/24 History
tablet,extended release 24 hr spasms
pantoprazole 40 mg tablet,delayed 40 mg PO DAILY 11/25/24 11/25/24 History
release (Protonix)
pregabalin 75 mg capsule (Lyrica) 75 mg PO BID 11/25/24 11/25/24 History
Review of Systems
-
History Source: Patient
All other systems: Negative unless noted
Physical Exam
Vital Signs
Temp Pulse Resp BP Pulse Ox
98.1 F 80 9 123/68 99
11/25/24 07:01 11/25/24 09:15 11/25/24 09:15 11/25/24 09:00 11/24/24 22:21
GEN: NAD. AAOx3
HEENT: EOMI, MMM
LUNGS: RA. CTA B/L, no wheeze
CV: SR on tele. Reg, S1/S2, no murmur
ABD: + colostomy. Soft, BS+, NT, ND
EXT: No edema or lesions B/L LE
NEURO: Gross non-focal
SKIN: Warm, dry and pink. No rash
Lab Results
11/25/24 05:25
11/25/24 05:25
Troponin I < 0.012 ng/ml 11/25/24 08:47
Impression / Plan
-
PCP: Dr. Richie Francois
Card: None
Impression:
Admitted with SBO 11/24/24
Recurrent SBO
NSVT, 10 beats 11/25/24
Hypomagnesemia
Paraplegia s/p traumatic T12 injury at age 15
Chronic neurogenic bladder
h/o UTIs
Fever managed as UTI as an outpatient 11/12/24
Recurrent sacral decubitus wounds
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
s/p multiple muscle flap and skin graft procedures
Recurrent right hip wound
HTN
DM 2
Echo 11/25/24: Study pending
Plan:
-Patient came to the ER with lower abdominal pain and decreased colostomy output and is now being admitted with SBP and cardiology is consulted for NSVT on tele. Patient had a fall and traumatic T12 injury at age 15. Patient has had sacral wounds
that required muscle flap and skin graft repairs and eventually had a diverting colostomy in . Patient says he has been eating more carrots and this likely led to SBO. He says a similar thing has happened in the past and he forgot that he
shouldn't eat so many carrots. Patient now admitted with NG tube. Cardiology is consulted for a 10 beat run of NSVT on tele. Patient was asleep at the time, but says that someone told him later about the NSVT. He denies any recent lightheadedness or
chest pain. Patient has noted increased LAST starting 1-2 months ago. Patient performs all of his own transfers and self-propels his chair, although this has been limited lately because of another sacral wound. He also had some LE edema and fluid
retention around [facility] that he says was related to eating ham and that Dr. Francois prescribed Lasix for a few days and edema resolved.
-ECG reviewed by me is SR, no acute ST changes. Tele reviewed by me and patient with 10 beat run of NSVT. No additional ectopy or arrhythmia on my review.
-NSVT in the setting of hypomagnesemia. Mag-rider given earlier today and will recheck in AM. Will also give magnesium oxide 500 mg daily starting 11/26/24 AM.
-Potassium was normal as 4.0, but recheck in AM ordered.
-Check echo, ordered by me.
-Patient reports LAST in the last 1-2 months, but was also treated for LE edema due to ham intake over the holiday. Pending echo will consider eventual outpatient stress test.
-Patient reports that he is being considered for an extensive flap surgery to repair his recurrent right hip wound, but that his plastic surgeon in [facility] is having trouble finding another surgeon to assist him.
[2024-11-25 18:24] LABS: APTT 127.7 Sec (23.4-35.0)
--- NOTE | 2024-11-25 20:00 | PTCARENOTE ---
Pt arrived to [facility] from ED, pullover assist. Reports 8/10 pain to LLQ. PRN IV Dilaudid 1mg provided for pain. Colostomy bag remains CDI, pt self-caths and reports that he has plenty of bags left. AAOx3, bed in lowest position, oriented to room
with call sales in reach. NGT placed to low intermittent suction per order. Heparin gtt infusing at 16 mL/hr per order. POC reviewed with pt. WOCN assessed pt's wounds this AM and documented wounds on admission.
[2024-11-25] MEDS: CIPRO 400 MG 200 IV (22:52)
[2024-11-26] MEDS: ZOFRAN 4 MG IV (00:28)
[2024-11-26] MEDS: DILAUDID 1 MG IV ×3 (00:28→09:27)
[2024-11-26 00:32] LABS: APTT 84.4 Sec (23.4-35.0)
[2024-11-26 03:00] VITALS: BP 135/73
[2024-11-26 06:00] VITALS: BMI 29.9
[2024-11-26 06:46] LABS: APTT 84.9 Sec (23.4-35.0)
[2024-11-26 07:10] VITALS: BP 121/68
[2024-11-26 07:25] LABS: Blood Urea Nitrogen 15 mg/dl (9-20); Calcium 8.6 mg/dl (8.4-10.2); Carbon Dioxide 28 mmol/L (22-30); Chloride 109 mmol/L (98-107); Estimated Creatinine Clearance 114 ml/min; Glucose 150 mg/dl (70-99); Magnesium 1.9 mg/dl (1.6-2.3); Potassium 3.5 mmol/L (3.5-5.1); Sodium 142 mmol/L (135-145); eGFR > 60.00
[2024-11-26] MEDS: PROTONIX IV 40 MG IV (08:25)
[2024-11-26] MEDS: D5LR 1000 IV ×2 (08:25→20:50)
[2024-11-26] MEDS: NSS (PRESERVATIVE FREE) 10 ML IV (08:25)
[2024-11-26] MEDS: MAGNESIUM OXIDE 500 MG PO (08:25)
[2024-11-26] MEDS: SANTYL OINTMENT 1 APPLIC TOPICAL (08:26)
[2024-11-26] MEDS: DESENEX/MITRAZOL/ZEASORB 1 APPLIC TOPICAL (08:35)
--- NOTE | 2024-11-26 10:15 | W.PN.GS2 ---
Addendum entered and electronically signed by Colton Fernando MD 11/26/24 13:17:
Patient seen and examined.
Feels much improved. Reports passing stool via ostomy. No nausea or vomiting currently. Abdomen and parastomal hernia much improved with no pain and soft.
Gen: NAD
HEENT: clear oututs
Abd: soft, obese, NT, mild/moderate distension, non-peritoneal, parastomal hernia soft, partially reducible, non-tender, ostomy PPV with stool in appliance
Patient is a 59 yo M p/w SBO secondary to parastomal hernia
AVSS
Normal WBC
Clinical improvement over the past few hours. No plans for surgical intervention given clinical improvement. He has a high risk for operative complications given his multiple prior procedures, obesity, and large nature side of of his parastomal
hernia.
Patient demanding NGT removal. Options for management including continued medical management with NGT decompression and/or clamping tube with trial of clear liquids around the tube were discussed. Risks of tube removal with recurrence of
obstructive symptoms (abdominal pain, nausea, vomiting) were reviewed specifically with the patient and his sister. Plan for NGT removal. Instructed patient to go slow with his oral intake to minimize chances of recurrent symptoms.
-- DC NGT, replace as needed
-- Sips of clears
-- C/W Eliquis on hold, IV heparin as per primary team
-- Correct lytes, minimize narcotics
Original Note:
Today's Communication / Plan
-
Continue NGT/NPO/IVF
Assessment / Plan
-
59 yo male with a h/o DVT's on Eliquis, paraplegia with diverting colostomy preformed in the for wound healing with known parastomal hernia presenting with SBO. CT on presentation with dilated sb loops within the parastomal hernia, apparent
transition point adjacent to the defect, and collapsed end colostomy limb within the hernia.
AFVSS
No stoma outputs as of yet
NGT in place with thick outputs, belching but no active n/v
Pain persists
+UTI, preliminary cx with GNB
--Continue NGT decompression
--C/W Eliquis on hold. IV heparin as per primary team
--Analgesics/antiemetics
--Appreciate cardiology following, 2D echo today
--ABX as per primary team
Following for improvement with bowel rest/decompression at this time. May require emergent surgery if no improvement
Subjective Data
-
Date of Service: November 26, 2024
Patient seen and examined at bedside. Denies vomiting but with belching and intermittent nausea. Abdominal pain persists, requesting analgesics at time of my exam.
Objective Data
-
Intake and Output
11/25/24 11/26/24 11/27/24
06:59 06:59 06:59
Intake Total 1232 / 1232
Output Total 1300 / 1300
Balance -68 / -68
Intake:
IV fluids (Total) 750 / 750
IV piggybacks 392 / 392
Amount instilled into GI Tube ( 90 / 90
Total)
Output:
Gastrointestinal tube output ( 700 / 700
Total)
Urine, Voided 600 / 600
Vital Signs
Temp Pulse Resp BP Pulse Ox
98.2 F 73 16 121/68 97
11/26/24 07:10 11/26/24 07:10 11/26/24 07:10 11/26/24 07:10 11/26/24 07:10
Lab Results
11/25/24 05:25
11/26/24 06:26
Calcium 8.6 mg/dl (8.4-10.2) 11/26/24 06:26
Magnesium 1.9 mg/dl (1.6-2.3) 11/26/24 06:26
Total Bilirubin 0.6 mg/dl (0.2-1.3) 11/24/24 22:45
AST 21 U/L (17-59) 11/24/24 22:45
ALT 21 U/L (0-50) 11/24/24 22:45
Alkaline Phosphatase 83 U/L (38-126) 11/24/24 22:45
Total Protein 7.1 g/dl (6.3-8.2) 11/24/24 22:45
Albumin 3.7 g/dl (3.5-5.0) 11/24/24 22:45
Physical Exam
-
Uncomfortable appearing
ABD distended with large parastomal hernia present. No stool/flatus in appliance. Generalized tenderness. NGT with thick, brown feculent outputs.
[2024-11-26 11:54] VITALS: BP 128/58
--- NOTE | 2024-11-26 14:37 | W.PN.HOSP.TC ---
Today's Communication/Plan
-
renew IV drips
advance diet per surgery
Assessment / Plan
Assessment / Plan
pt is a 59 year old male
Recurrent SBO --apprec surgery--NGT out--ostomy functioning--cont IVF/IV meds until adequately taking PO meds--cont IV PPI--apprec surgery--diet advanced to clears
Non-sustained VT - Patient asymptomatic. Prior hx of palpitations s/p holter monitor--possibly due to hypomagnesemia--apprec cards--replete mag
Possible UTI with flank pain - No pyelo on CT. Adamant that his urine is usually clear--Follow urine Cx--Noted pt already on suppressive cipro for chronic osteo--urine culture with gm neg bacilli--await further ID and sensitivities
Chronic wound/chronic osteo--Wound care CS--continue suppressive cipro (400mg iv hs for now)
DVT - hx of DVT, paraplegic on eliquis, while npo, place on heparin gtt
Code status - DNR, confirmed with pt
Anticipated Discharge: 24 - 48 hours
Subjective/Interval History
-
Date of Service: November 26, 2024
pt feeling much better--NGT out
Objective Data
-
Labs:
Laboratory Results
11/26/24
06:26
APTT 84.9 H
Sodium 142
Potassium 3.5
Chloride 109 H
Carbon Dioxide 28
BUN 15
Creatinine 0.7
Glucose 150 H
Calcium 8.6
Vital Signs:
max temp for 24 hours
11/26/24
11:54
Temp 98.5 F
Vital Signs
Temp Pulse Resp BP Pulse Ox
98.5 F 88 16 128/58 100
11/26/24 11:54 11/26/24 11:54 11/26/24 11:54 11/26/24 11:54 11/26/24 11:54
I&O
11/25/24 11/26/24 11/27/24
06:59 06:59 06:59
Intake Total 1232 / 1232
Output Total 1300 / 1300
Balance -68 / -68
Review of Systems
-
All other systems: Reviewed and negative
Physical Exam
-
General: Well Developed, Well Nourished and No Apparent Distress
HEENT: Normocephalic and Atraumatic
Respiratory: Clear to Auscultation; Negative Wheezes or Rhonchi
Cardiac: Regular Rhythm and S1/S2; Negative Murmur
GI: Soft, Nontender, Nondistended, Normal Bowel Sounds and Ostomy
Musculoskeletal: No Clubbing, No Cyanosis, No Edema and Other (muscle atrophy c/w paraplegia)
[2024-11-26 15:17] VITALS: BP 122/65
--- NOTE | 2024-11-26 17:40 | PTCARENOTE ---
Patient refused to be on heparin when a new bag was being hung. Doctor Adithya was made aware.
[2024-11-26 19:48] VITALS: BP 146/64
[2024-11-26] MEDS: CIPRO 400 MG 200 IV (21:52)
[2024-11-26 23:26] VITALS: BP 136/66
[2024-11-27 03:30] VITALS: BP 127/63
[2024-11-27 07:07] VITALS: BP 146/73
[2024-11-27] MEDS: SANTYL OINTMENT 1 APPLIC TOPICAL (07:55)
[2024-11-27] MEDS: DESENEX/MITRAZOL/ZEASORB 1 APPLIC TOPICAL (07:57)
[2024-11-27] MEDS: PROTONIX IV 40 MG IV (07:57)
[2024-11-27] MEDS: MAGNESIUM OXIDE 500 MG PO (07:57)
[2024-11-27] MEDS: NSS (PRESERVATIVE FREE) 10 ML IV (07:57)
[2024-11-27 09:38] LABS: Hematocrit 36.1 % (39.0-52.0); Hemoglobin 11.2 g/dL (13.0-18.0); Mean Corpuscular Hgb 27.7 pg (27.0-31.0); Mean Corpuscular Volume 89.1 fL (80.0-94.0); Mean Platelet Volume 10.1 fL (7.4-10.4); Platelet Count 248 10^3/uL (130-400); Red Blood Cell Count 4.05 10^6/uL (4.70-6.10); Red Cell Dist. Width 13.5 % (11.5-14.5); White Blood Cell Count 4.6 10^3/uL (4.8-10.8)
[2024-11-27 09:50] LABS: APTT 34.6 Sec (23.4-35.0)
--- NOTE | 2024-11-27 09:58 | W.PN.GS2 ---
Addendum entered and electronically signed by Colton Fernando MD 11/27/24 12:12:
Patient seen and examined.
Reports feeling well - denies worsening abdominal pain, nausea, or vomiting. Continues to pass looser stool via ostomy. Parastomal hernia remains soft and minimal tenderness. Afebrile.
Gen: NAD
Abd: soft, obese, NT, mild distension, non-peritoneal, parastomal hernia soft, partially reducible, non-tender, ostomy PPV with stool in appliance
Patient is a 59 yo M p/w SBO secondary to parastomal hernia
AVSS
Normal WBC
Clinical improvement. No plans for surgical intervention given clinical improvement. He has a high risk for operative complications given his multiple prior procedures, obesity, and large nature side of of his parastomal hernia.
Patient very involved in his care given his prior history of small bowel obstructions and comfort with management. Requesting liquid diet and discharge today. Risks of recurrent symptoms and need for representation were discussed. Given his
clinical improvement trial of a liquid diet is not unreasonable and recommended. All questions answered.
-- Clears, ADAT to fulls
-- OK to resume Eliquis
-- Correct lytes, minimize narcotics
-- Dispo per primary, please call with questions or concerns
Original Note:
Today's Communication / Plan
-
CLD to FLD
Dispo planning
Assessment / Plan
-
59 yo male with a h/o DVT's on Eliquis, paraplegia with diverting colostomy preformed in the for wound healing with known parastomal hernia presenting with SBO. CT on presentation with dilated sb loops within the parastomal hernia, apparent
transition point adjacent to the defect, and collapsed end colostomy limb within the hernia.
AFVSS
NGT out on 11/26
Stoma productive of flatus/stool
ABD exam much improved
+UTI, preliminary cx with GNB
--Advance to CLD for breakfast and FLD for lunch if tolerating
--OK to resume PO AC
--Analgesics/antiemetics prn
--Appreciate cardiology following
--ABX as per primary team
Patient very eager for discharge to home. Cautioned about advancing diet slowly at home and returning to the ED if symptoms recur which is he is agreeable to. Ok for d/c later today from surgical standpoint if tolerating FLD.
Subjective Data
-
Date of Service: November 27, 2024
Patient seen and examined at bedside with Dr. Fernando. Passing stools/flatus from stoma. Very minimal discomfort to abdomen near stoma towards midline but otherwise no pain.
Objective Data
-
Intake and Output
11/26/24 11/27/24 11/28/24
06:59 06:59 06:59
Intake Total 1232 / 1232 1000 / 1000
Output Total 1300 / 1300 400 / 400
Balance -68 / -68 600 / 600
Intake:
Oral fluids 0 / 0
IV fluids (Total) 750 / 750 800 / 800
IV piggybacks 392 / 392 200 / 200
Amount instilled into GI Tube ( 90 / 90
Total)
Output:
Gastrointestinal tube output ( 700 / 700
Total)
Urine, Voided 600 / 600 400 / 400
Other:
Number of unmeasured liquid
stools
Colostomy 1
Vital Signs
Temp Pulse Resp BP Pulse Ox
98.3 F 65 18 146/73 99
11/27/24 07:07 11/27/24 07:07 11/27/24 07:07 11/27/24 07:07 11/27/24 07:07
Lab Results
11/27/24 09:00
Calcium 8.6 mg/dl (8.4-10.2) 11/26/24 06:26
Magnesium 1.9 mg/dl (1.6-2.3) 11/26/24 06:26
Total Bilirubin 0.6 mg/dl (0.2-1.3) 11/24/24 22:45
AST 21 U/L (17-59) 11/24/24 22:45
ALT 21 U/L (0-50) 11/24/24 22:45
Alkaline Phosphatase 83 U/L (38-126) 11/24/24 22:45
Total Protein 7.1 g/dl (6.3-8.2) 11/24/24 22:45
Albumin 3.7 g/dl (3.5-5.0) 11/24/24 22:45
Physical Exam
-
Uncomfortable appearing
ABD distended with large parastomal hernia present, soft, nd, nt
Stoma productive of flatus/stool
[2024-11-27 10:40] LABS: Blood Urea Nitrogen 10 mg/dl (9-20); Calcium 8.9 mg/dl (8.4-10.2); Carbon Dioxide 26 mmol/L (22-30); Chloride 109 mmol/L (98-107); Estimated Creatinine Clearance 114 ml/min; Glucose 132 mg/dl (70-99); Magnesium 1.6 mg/dl (1.6-2.3); Potassium 3.6 mmol/L (3.5-5.1); Sodium 143 mmol/L (135-145); eGFR > 60.00
[2024-11-27 10:45] VITALS: BMI 29.9
[2024-11-27] MEDS: D5LR 1000 IV (11:18)
[2024-11-27 11:28] VITALS: BP 168/90
--- NOTE | 2024-11-27 11:37 | W.PN.UPDATE ---
Update Note
Progress Note Update
Follow-up appointment made at [facility]. Will discuss outpatient nuclear stress test at that time to follow-up on NSVT on telemetry monitoring.
--- NOTE | 2024-11-27 12:39 | W.PN.HOSP.TC ---
Today's Communication/Plan
-
d/c
Assessment / Plan
Assessment / Plan
pt is a 59 year old male
Recurrent SBO --apprec surgery--NGT out--ostomy functioning----apprec surgery--diet advanced to fulls and tolerating--OK for d/c
Non-sustained VT - Patient asymptomatic. Prior hx of palpitations s/p holter monitor--possibly due to hypomagnesemia--apprec cards--replete mag
Possible UTI with flank pain - No pyelo on CT. Adamant that his urine is usually clear--Follow urine Cx--Noted pt already on suppressive cipro for chronic osteo--urine culture with gm neg bacilli--await further ID and sensitivities
Chronic wound/chronic osteo--Wound care CS--continue suppressive cipro (400mg iv hs for now)
DVT - hx of DVT, paraplegic on eliquis
Code status - DNR, confirmed with pt
Anticipated Discharge: Today
Subjective/Interval History
-
Date of Service: November 27, 2024
pt ready for d/c--tolerating full liquids
Objective Data
-
Labs:
Laboratory Results
11/27/24
09:00
WBC 4.6 L
Hgb 11.2 L
Hct 36.1 L
Plt Count 248
APTT 34.6
Sodium 143
Potassium 3.6
Chloride 109 H
Carbon Dioxide 26
BUN 10
Creatinine 0.7
Glucose 132 H
Calcium 8.9
Vital Signs:
max temp for 24 hours
11/26/24
15:17
Temp 98.7 F
Vital Signs
Temp Pulse Resp BP Pulse Ox
98.2 F 85 20 168/90 98
11/27/24 11:28 11/27/24 11:28 11/27/24 11:28 11/27/24 11:28 11/27/24 11:28
I&O
11/26/24 11/27/24 11/28/24
06:59 06:59 06:59
Intake Total 1232 / 1232 1000 / 1000
Output Total 1300 / 1300 400 / 400
Balance -68 / -68 600 / 600
Review of Systems
-
All other systems: Reviewed and negative
Physical Exam
-
General: Well Developed, Well Nourished and No Apparent Distress
HEENT: Normocephalic and Atraumatic
Respiratory: Clear to Auscultation; Negative Wheezes or Rhonchi
Cardiac: Regular Rhythm and S1/S2; Negative Murmur
GI: Soft, Nontender, Nondistended, Normal Bowel Sounds and Ostomy
Musculoskeletal: No Clubbing, No Cyanosis, No Edema and Other (muscle wasting bilateral LE c/w paraplegia)
Neuro: Awake
Psych: Calm
--- NOTE | 2024-11-27 13:22 | CM ---
Patient will d/c today. Met w/ patient bedside, initial assessment completed. Admitted for Abdominal pain. Patient is a paraplegic.
Patient resides alone in a single story rancher style home- no steps. Patient is w/c bound. No SNF hx, OP therapy in the past, current w/ VN for wound care. Patient stated [facility]N comes 3 times a week.
Address, points of contact and insurance verified
PCP: Richie Francois
Pharmacy: [facility]. Patient uses [facility] for mail orders
Referral sent to [facility] for resume of care
Patient shared he has transport home
IMM verbally reviewed, copy given to patient, copy on chart
Plan: Home, [facility] w/ VN
--- NOTE | 2024-11-28 06:35 | W.DCSUMMARY ---
Discharge Summary
Discharge Data
Date of Admission: 11/25/24
Date of Discharge: 11/27/24
-
Pending Results: No
Hospital Course
Primary care physician : Richie Francois
Principal Discharge diagnosis : Recurrent small bowel obstruction, nonsustained ventricular tachycardia
Chronic Discharge diagnosis : Paraplegia, chronic wound with chronic osteo in the right hip present on admission, history of deep venous thrombosis
Hospital Course : Patient was a 59-year-old male with a history of a traumatic injury resulting in paraplegia with chronic right hip wound who presented with acute abdominal pain. He stated that the pain started on the day prior to admission and
that while he tolerated it, on the morning of admission he reported that the colostomy bag was filled with gas. He then changed the colostomy bag was having liquid output only. He was expecting solid output but did not get any. He then developed
abdominal pain. He reported nausea but no vomiting. He described the pain as crampy and nonradiating. While in the emergency department he had a nonsustained 8 beat run of V. tach. CAT scan done in the emergency department showed high-grade
small bowel obstruction in the left lower quadrant with a transition point. Patient was admitted.
Problem #1: Recurrent small bowel obstruction. Patient was admitted and seen in consultation by surgery. He had an NG tube placed and was made n.p.o. with IV fluids. There was some question as to whether or not the patient would require surgery
in the hospital, however, he did not need any. Patient improved after NG tube decompression and NG tube was taken out. Patient was tolerating his diet of full liquids. He prefers to advance his diet at home and surgery has cleared him for
discharge. He is now having output from his colostomy.
Problem #2: Nonsustained ventricular tachycardia. Patient was seen in consultation by cardiology. He has had a history of prior palpitations and he has had a Holter monitor. He was found to be hypomagnesemic and magnesium was repleted. Perhaps
that was the cause. He is instructed to follow-up with cardiology for further outpatient workup if needed.
Problem #3: All other medical issues. These include Paraplegia, chronic wound with chronic osteo in the right hip present on admission, history of deep venous thrombosis. These medical issues were stable during his hospitalization. Medications
were continued as able. His chronic antibiotic for suppression was changed to IV while he was n.p.o.
Patient is stable for discharge home at this time. If there are any questions regarding this dictation or his hospital stay, please not hesitate to call. Our office number is [phone].
Important imaging findings :
CT SCAN ABDOMEN/PELVIS IMPRESSION:
High-grade distal small bowel obstruction.
Discharge Plan
-
Patient Disposition: Home (Routine Discharge)
Discharge Diagnosis/Procedures: Recurrent small bowel obstruction, nonsustained ventricular tachycardia, chronic wound with chronic osteomyelitis
Condition: Good
Diet: As tolerated and Regular
Activity: As tolerated
Driving Restrictions: As prior to admission
Bathing Restrictions: None
Activity Restrictions/Additional Instructions:
Wound Care Instructions
R hip and L ischium: clean with Vashe, Santyl to slough then dry dressing daily and prn drainage.
R great toe: clean with Vashe, adaptic and dry gauze change q2 days and prn drainage.
Sacrum, L lateral lower leg and ankle: clean with soap and water, silicone foam change q 2-3 days and prn soilage.
fungal powder to skin folds prn moisture
Follow up at Wound center as scheduled.
Referrals:
Richie Francois MD [Family Provider] - in less than 1 week
Mariely Quintero CRNP [Specified Professional Personl] - 12/16/24 9:20 am (You have a follow-up appointment with Dr. Shah's nurse practitioner Mariely Quintero, at the [place] office. Please call if questions.)
Prescriptions:
Continued
lorazepam [Ativan] 1 mg Tablet
1 mg PO BIDPRN PRN (Reason: anxiety)
therapeutic multivitamin Tablet
1 tab PO DAILY
losartan-hydrochlorothiazide 100-25 mg Tablet
1 tab PO DAILY
Eliquis 5 MG tablet
5 mg PO BID
amlodipine [Norvasc] 5 mg Tablet
10 mg PO DAILY
ciprofloxacin HCl [Cipro] 500 mg Tablet
500 mg PO QHS
oxybutynin chloride 10 mg Tablet Extended Release 24hr
10 mg PO DAILYPRN PRN (Reason: bladder spasms)
pantoprazole [Protonix] 40 mg Tablet,Delayed Release (Dr/Ec)
40 mg PO DAILY
pregabalin [Lyrica] 75 mg Capsule
75 mg PO BID
Discharge Orders:
Discharge Patient (As Directed); Ordered 11/27/24
Ordered By: Shyann Haji
Discharge Date and Time
Discharge Date/Time: 11/27/24 15:09
Print Language: YAKUT
--- NOTE | 2024-11-30 07:45 | W.PN.UPDATE ---
Update Note
Progress Note Update
After patient was discharged, received notification of ESBL Klebsiella pneumoniae isolated in his urine. Called patient to discuss. Patient states that he has had ESBL Kleb before. He states that because he is a paraplegic he always has urinary
issues and does straight cath intermittently if needed. He has a 2-week course of doxycycline on standby for just such an occasion. I told him to take the doxycycline 100 mg twice daily for 1 week and to follow-up with his primary care physician
if he is still having symptoms to potentially extend out to 2 weeks. Patient is aware and agreeable with this plan.
== END 2024-11-27 15:09 | disposition home health service (06) | DRG 393 ==
LOC: 4 WEST ACU 03:34
PROVIDERS: Internal Medicine; Nurse Practitioner Family; Registered Nurse; ADMITTING PHYSICIAN Internal Medicine; ATTENDING PHYSICIAN Internal Medicine; CONSULT PHYSICIAN Surgery; EMERGENCY PHYSICIAN Emergency Medicine; FAMILY PHYSICIAN Internal Medicine; OTHER PHYSICIAN Internal Medicine Cardiovascular Disease
DX: K43.3 Parastomal hernia with obstruction, without gangrene (principal); L89.214 Pressure ulcer of right hip, stage 4; M86.651 Other chronic osteomyelitis, right thigh; L89.323 Pressure ulcer of left buttock, stage 3; G82.20 Paraplegia, unspecified; I47.20 Ventricular tachycardia, unspecified; K43.5 Parastomal hernia without obstruction or gangrene; I10 Essential (primary) hypertension; E83.42 Hypomagnesemia; E11.69 Type 2 diabetes mellitus with other specified complication; D64.9 Anemia, unspecified; N31.9 Neuromuscular dysfunction of bladder, unspecified; F17.290 Nicotine dependence, other tobacco product, uncomplicated; E78.5 Hyperlipidemia, unspecified; I48.91 Unspecified atrial fibrillation; E66.9 Obesity, unspecified; Z66 Do not resuscitate; Z68.29 Body mass index [BMI] 29.0-29.9, adult; Z79.01 Long term (current) use of anticoagulants; Z79.2 Long term (current) use of antibiotics; Z79.899 Other long term (current) drug therapy; Z86.718 Personal history of other venous thrombosis and embolism; Z88.2 Allergy status to sulfonamides; Z93.3 Colostomy status
CPT/HCPCS: 71045; 74177; 80048; 80053; 81003; 81015; 83690; 83735; 84484; 85025; 85027; 85730; 87070; 87077; 87086; 87147; 87186; 93005; 93306; Q9967

== ENCOUNTER 2025-01-31 22:09 | Inpatient (IN) | payer OTHER, SELFPAY ==
[2025-01-31 16:52] VITALS: BP 140/65
--- NOTE | 2025-01-31 19:25 | ED.GENMED ---
History of Present Illness
General
Chief Complaint: Skin Problem
Source: patient
Exam Limitations: none
Time Seen by Provider: 01/31/25 19:03
Nursing documentation reviewed up to this point in time: agreed with
History of Present Illness
History of Present Illness:
Patient with history of chronic right hip wound for over 2 years, presents to ED secondary to recurrent foul-smelling drainage from the wound as well as development of redness around open wound over the past 5 days. Patient was evaluated by
visiting nurse who evaluated patient 3 times a week today and recommended that he come to the ED for an evaluation and treatment. Patient has required admission and PICC line for prolonged IV antibiotics in the past. Patient also reports chill
sensation over the past 3 days. Denies new trauma. Denies fever. Denies nausea or vomiting.
Past History
Past History
ED Past Medical History: HTN, NIDDM, Other (T12 vertebral compression fracture at age 15 with resultant paraplegia), Other (Stasis ulcers, SBO, Anemia, gastritis,) and Other (Epididymitis)
ED Past Surgical History: Bowel resection (Colostomy) and Orthopedic (Spinal fusion)
Social History
Tobacco: Non-smoker
Alcohol: None
Personal:
Living: alone
Employment: Retired
Family History
Family History: Other (Noncontributory)
Review of Systems
Review of Systems
Allergies reviewed?: Yes
All Other Systems: ROS reviewed and negative except as documented in HPI and ROS
Constitutional: Reports chills; Denies fever
Respiratory: Reports no symptoms
Cardiac: Reports no symptoms
ABD/GI: Reports no symptoms; Denies nausea or vomiting
Musculoskeletal: Reports no symptoms
Skin: Reports other (Foul-smelling drainage from open wound)
Neurological: Reports no symptoms
Phy Exam
Physical Exam
Physical Exam:
Physical Exam
General: mild distress, not acutely ill. afebrile
Head: nc/at. eomi
Neck: supple. no meningeal signs.
Abdomen: normal bowel sounds. not tender.
Neuro: alert and oriented x 3. no focal neurological deficits
Skin: right hip: open wound noted approx 3cm diameter with foul smelling drainage along with surrounding erythema
Psychiatric: well kept. interactive and cooperative
Extremities: no calf tenderness.
Course
Orders/Labs/Results
Orders:
Orders
01/31/25 Breakfast
Cholesterol Lowering
At Your Request: Full Participation
Does patient need a safe tray?: No
Cholesterol Lowering: Sodium, 2 Gram
01/31/25 16:58
Blood Culture Urgent
BRANDAN Source: Blood/Venous
Specimen Description:
01/31/25 19:48
Piperacillin/Tazo 3.375 Gram [Zosyn] 3.375 gram in 50 ml IV NOW
01/31/25 19:52
Complete Blood Count/With Diff Urgent
Comprehensive Metabolic Panel Urgent
Lactic Acid Urgent
01/31/25 20:01
Vancomycin [Vancocin] 2,000 mg 0.9% Sodium Chloride 500 ml [Nss] 500 ml IV NOW
01/31/25 20:22
Blood Culture Urgent
BRANDAN Source: Blood/Venous
Specimen Description:
01/31/25 20:40
Lorazepam [Ativan] 1 mg PO NOW STA
01/31/25 21:11
Wound Culture [Wound/Abscess/Other Culture] Urgent
BRANDAN Source: Hip
Specimen Description: Right
Date Specimen was Collected: 01/31/25
Time Specimen was Collected: 21:09
01/31/25 21:26
Admit/Transfer Patient As Directed
Co-Sign Provider:
Level of Care: Inpatient admission
Assign to:: Medical/Surgical
Physician / Group: [email or web address]
Diagnosis: Recurrent infected chronic right hip open ulcer, now with malodorous draina
Reason for Hospitalization: Recurrent infected chronic right hip open ulcer, now with malodorous drainage
Expected length of stay greater than two midnights?: Yes
ELOS- Estimated Length of Stay in days: 5
I certify the patient meets the requirements for IP care: Yes
01/31/25 21:30
Code Status As Directed
Resuscitation Status: Full Code
01/31/25 21:48
HYDROmorphone [Dilaudid] 0.25 mg .ROUTE .STK-MED ONE
01/31/25 21:50
HYDROmorphone [Dilaudid] 0.25 mg IV NOW STA
01/31/25 23:18
Blood Culture Q30M
BRANDAN Source: Blood/Venous
Specimen Description:
Comment: IF NOT OBTAINED IN ED
Dextrose 50%-Water [Dextrose 50% Syringe] 12.5 grams IV [id number] PRN
Glucagon [GlucaGen] 1 mg IM PRN PRN
Lorazepam [Ativan] 1 mg PO BIDPRN PRN anxiety
01/31/25 23:18
WOUND/OSTOMY CONSULT Routine
Reason for Consult: wound care
Urinalysis Reflex To Culture Urgent
Date Specimen was Collected: 02/01/25
Time Specimen was Collected: 00:40
Activity As Directed
Activity Level: With Assistance
Bedside Glucose Monitoring As Directed
Frequency: AC&HS
Additional Instructions:: Change to q6h if pt on TPN, tube feeding or not eating
Bladder Scan As Directed
Follow Bladder Retention/Intermittent Cath Algorithm?: Yes
PRN if no void in __ hours: 6
Frequency: Per Retention Algorithm
If Bladder Scan Result >: 400
then:: Straight cath
Compression Sleeves [Pneumatic Compression Sleeves] As Directed
Type: Knee high
Intake/ Output As Directed
Frequency: Per unit guidelines
Straight Cath As Directed
Frequency: Per Retention Algorithm
Additional Instructions: straight cath as needed per acute urinary retention algorithm for 24 hrs
Additional Instructions: for bladder scan greater than 400 mL
Vital Signs As Directed
Frequency: Per unit guidelines
Weight As Directed
Frequency: Daily
DX Deep Vein Thrombosis Video Routine
01/31/25 23:24
Oxybutynin Chloride [Ditropan] 5 mg PO BIDPRN PRN
01/31/25 23:48
Blood Culture Q30M
BRANDAN Source: Blood/Venous
Specimen Description:
Comment: IF NOT OBTAINED IN ED
02/01/25 02:00
Piperacillin/Tazo 3.375 Gram [Zosyn] 3.375 gram in 50 ml IV Q6H
02/01/25 06:00
Complete Blood Count/No Diff IN AM
Comprehensive Metabolic Panel IN AM
Glycohemoglobin (HgbA1c) IN AM
02/01/25 07:30
Insulin Aspart Corrective Low [Novolog Flexpen-Low Resistance] See Protocol SC AC
02/01/25 08:00
Amlodipine [Norvasc] 10 mg PO DAILY
Pregabalin [Lyrica] 75 mg PO BID
Abnormal Lab Results
01/31/25
19:52
WBC 12.2 H 10^3/uL
(4.8-10.8)
Hgb 11.7 L g/dL
(13.0-18.0)
Hct 36.9 L %
(39.0-52.0)
MCV 78.5 L fL
(80.0-94.0)
MCH 24.9 L pg
(27.0-31.0)
MCHC 31.7 L g/dL
(33.0-37.0)
RDW 14.6 H %
(11.5-14.5)
Abs Immat Gran (auto) 0.1 H 10^3/uL
(0-0.05)
Absolute Neuts (auto) 10.1 H 10^3/uL
(1.4-6.5)
Absolute Monos (auto) 0.7 H 10^3/uL
(0.1-0.6)
Neutrophils % 82.2 H %
(42.2-75.2)
Lymphocytes % 11.7 L %
(20.5-51.1)
BUN 22 H mg/dl
(9-20)
Glucose 129 H mg/dl
(70-99)
01/31/25 19:52
01/31/25 19:52
Vital Signs
Initial and Last Documented VS:
Initial Vital Signs
Temp Pulse Resp BP Pulse Ox
99.1 F 94 18 140/65 100
01/31/25 16:52 01/31/25 16:52 01/31/25 16:52 01/31/25 16:52 01/31/25 16:52
Last Documented Vital Signs
Temp Pulse Resp BP Pulse Ox
99.1 F 87 21 112/62 97
01/31/25 16:52 01/31/25 21:45 01/31/25 21:45 01/31/25 21:00 01/31/25 21:45
MDM/Problems Addressed
MDM/Problems Addressed:
History and exam consistent with recurrent right hip infection, concerning for potential osteomyelitis. The patient will be admitted for IV antibiotics. Will defer any imaging studies to inpatient team.
*Pulse Oximetry
SaO2: 100
Oxygen Mode of Delivery: Room air
Patient hypoxic: no
*Critical Care Note
Total Time (30-74mins, 75-104mins- exclusive of procedures): Not Applicable
ED Attending Note
-
Portions of this chart may have been created with voice recognition software.� Occasional wrong word or��sound alike� substitutions may have occurred due to the inherent limitations of voice recognition software.
Discharge Plan
Departure
Patient Disposition: Admit
Date of Disposition: 01/31/25
Time of Disposition: 20:43
Admit to: Med/Surg
Presentation/result/management discussed w/ accepting MD/DO: Hospitalist
Discharge Problem:
Infected hip wound
Interventions
Interventions:
*Risk Screen - Suicide Last Done: 01/31/25 16:52
*General Assessment Last Done: 01/31/25 19:42
*Neglect/Abuse Screening Last Done: 01/31/25 19:42
*ED- Fall Risk Assessment Last Done: 01/31/25 19:42
*ED COVID-19 Vaccine History Last Done: 01/31/25 19:42
ED-Skin Assessment Last Done: 01/31/25 21:15
[2025-01-31 19:28] VITALS: BMI 28.7
[2025-01-31 19:47] VITALS: BP 143/67
[2025-01-31 20:00] VITALS: BP 149/72
[2025-01-31] MEDS: ZOSYN 50 IV (20:08)
[2025-01-31 20:27] LABS: ALT (SGPT) 32 U/L (0-50); AST (SGOT) 21 U/L (17-59); Albumin 3.6 g/dl (3.5-5.0); Alkaline Phosphatase 88 U/L (38-126); Blood Urea Nitrogen 22 mg/dl (9-20); Calcium 9.0 mg/dl (8.4-10.2); Carbon Dioxide 25 mmol/L (22-30); Chloride 104 mmol/L (98-107); Estimated Creatinine Clearance 118 ml/min; Glucose 129 mg/dl (70-99); Potassium 4.0 mmol/L (3.5-5.1); Sodium 135 mmol/L (135-145); Total Protein 6.6 g/dl (6.3-8.2); eGFR > 60.00
[2025-01-31 20:42] LABS: Hematocrit 36.9 % (39.0-52.0); Hemoglobin 11.7 g/dL (13.0-18.0); Mean Corp Hgb Conc. 31.7 g/dL (33.0-37.0); Mean Corpuscular Volume 78.5 fL (80.0-94.0); Nucleated Red Blood Cells % 0 % (-); Platelet Count 290 10^3/uL (130-400); Red Cell Dist. Width 14.6 % (11.5-14.5)
[2025-01-31] MEDS: ATIVAN 1 MG PO (20:44)
[2025-01-31] MEDS: VANCOCIN 540 MG IV (20:47)
[2025-01-31 21:00] VITALS: BP 112/62
--- NOTE | 2025-01-31 21:23 | HPS.HSE ---
Family Physician
-
Family Physician: Richie Francois
Chief Complaint
-
foul smelling drainage for chr Rt Hip wound
History of Present Illness
This note serves as an addendum to the H&P by correctional supervisor lieutenant MAMADOU
Guadalupe Mccrary
HPI
59M HX DM, TBI, paraplegia,colostomy chronic right hip wound with extensive surgical debridement and being cared for by combination of mechanical service specialist and infectious disease doctors at [place], DVT on Eliquis, urinary retention secondary to
neurogenic bladder status post straight cath, apparent chronic osteo with suppressive ciprofloxacin, recurrent small bowel obstructions on the basis of adhesions and hernia seen at ER
- pw recurrent foul-smelling drainage from the wound
- development of redness around open wound over the past 5 days.
- evaluated byVN 3 times a week - today and recommended that he come to the ED for an evaluation and treatment.
- required admission and PICC line for prolonged IV antibiotics in the past.
- reports chill sensation over the past 3 days.
- Denies new trauma. Denies fever. Denies nausea or vomiting.
Medical History
Past Medical History
Past Medical History: Reports Other
Additional Past Medical History:
Diabetes Mellitus, Type
Essential Hypertension
Bilateral Lower Ext DVT
T12 Spinal Injury with Paraplegia
Neurogenic Bladder-self caths every 6 hours
Chronic Sacral/Left Ankle Pressure Wounds
dvt left leg
Past Surgical History: Reports Other
Additional Past Surgical History:
Diverting Colostomy
Penile Implant
Multiple Spinal Surgeries/Fusion
Social History
Tobacco: Other (Occasional Cigar)
Drug: Marijuana
Personal:
Living: Alone
Employment: Disabled
Family History
Family History: Other (Mother, father, sister DM 2)
Allergies / Home Medications
Allergies reflects when Allergies were last updated in [facility].
Home Medications with original date entered in [facility]
Allergy/Medication List:
Allergies
Allergy/AdvReac Type Severity Reaction Status Date / Time
ceftriaxone Allergy Mild Rash/pt Verified 10/02/23 12:49
denies.
Tolerated
cefepime.
Sulfa (Sulfonamide Allergy BLISTERS Verified 10/02/23 12:49
Antibiotics) IN MOUTH
sulfisoxazole Allergy BLISTERS Verified 10/02/23 12:49
IN MOUTH
Home Medications
Medicinal Marijuana 0 dose inhalation HSPRN PRN sleep 01/15/22
lorazepam 1 mg tablet (Ativan) 1 mg PO HS 01/15/22
acetaminophen 500 mg tablet (Tylenol Extra Strength) 1,000 mg PO Q4H PRN mild pain 05/12/23
apixaban 5 mg tablet (Eliquis) 5 mg PO BID Blood clot prevention/tx 05/12/23
collagenase clostridium histo. 250 unit/gram topical ointment (Santyl) 1 applic topical DAILY PRN apply to right hip/left ankle wound 05/12/23
losartan 100 mg-hydrochlorothiazide 25 mg tablet 1 tab PO DAILY Blood Pressure 05/12/23
oxybutynin chloride 10 mg tablet,extended release 24 hr 10 mg PO DAILYPRN PRN overactive bladder 05/12/23
therapeutic multivitamin 1 tab PO DAILY Supplement 05/12/23
amlodipine 5 mg tablet (Norvasc) 5 mg PO DAILY 10/02/23
ciprofloxacin HCl 500 mg tablet (Cipro) 500 mg PO BID 10/02/23
Review of Systems
-
History Source: Patient
A 12 point ROS was completed and negative except as noted: Yes
Constitutional: Reports Chills; Denies Fever
EENT: Denies Sore Throat or Runny Nose
Respiratory: Denies Cough or Trouble Breathing
Cardiac: Denies Chest Pain, Palpitations or Syncope
Abdomen/GI: Reports Other (Chronic diverting colostomy); Denies Abdominal Pain, Nausea, Vomiting or Diarrhea
: Reports Flank Pain and Other (Strict, straw-colored urine); Denies Dysuria, Frequency or Incontinence
Musculoskeletal: Denies Joint Pain or Edema
Skin: Reports Other (Right hip decub stage IV with surrounding erythema, expansion of prior existing wound POPS fould odour drainage ); Denies Itching or Rash
Neurological: Denies Dizzy or Headache
Endocrine: Reports No Symptoms
Hematologic/Lymphatic: Reports No Symptoms
Psych: Reports Calm
Physical Exam
Vital Signs
Vital Signs
Temp Pulse Resp BP Pulse Ox
99.1 F 101 16 143/67 99
01/31/25 16:52 01/31/25 19:47 01/31/25 19:48 01/31/25 19:47 01/31/25 19:47
Physical Exam
General: Comfortable, Conversant and Chills
HEENT: NormoCephalic, Anicteric, PERRLA, [place] Conjunctivae and No Ptosis
Respiratory: Clear; No Wheezes, Rales or Rhonchi
Cardiac: S1/S2 and Regular Rhythm; No Murmur, Rub, Gallop or Peripheral Edema
Breast: Deferred by me
GI: Soft, Non Tender, Non Distended, Normal Bowel Sounds and Ostomy (Chronic diverting colostomy)
Genito-urinary: Deferred by me
Musculoskeletal: No Clubbing, No Cyanosis, No Edema and Other (Right hip decub stage IV with surrounding erythema, expansion of prior existing wound)
Skin: Warm, Dry and Decubitus Ulcers (Right hip decub stage IV with surrounding erythema, expansion of prior existing wound, paraplegia T12 down)
Neuro: AO x 3 and Other (Chronic paraplegia T12 down); No Slurred Speech, Facial Droop, Tremors or Sedated
Psych: Calm
Laboratory Results
-
01/31/25 19:52
01/31/25 19:52
Laboratory Results
Lactic Acid 1.6 mmol/L (0.7-2.0) 01/31/25 19:52
Total Bilirubin 0.7 mg/dl (0.2-1.3) 01/31/25 19:52
AST 21 U/L (17-59) 01/31/25 19:52
ALT 32 U/L (0-50) 01/31/25 19:52
Alkaline Phosphatase 88 U/L (38-126) 01/31/25 19:52
Data Reviewed
-
Lab Data: Labs Reviewed by me
Old Records: Reviewed
Impression/Plan
-
Relevant data
WCC 12.2
Hgb 11.7
SALLY 22
Nl Cr eGFR > 60
BG 129
LA 1.6
WD Cx sent
Last hospitalist admission: 11/25/24 - 11/27/24
Principal Discharge diagnosis : Recurrent small bowel obstruction, nonsustained ventricular tachycardia
Chronic Discharge diagnosis : Paraplegia, chronic wound with chronic osteo in the right hip present on admission, history of deep venous thrombosis
ASSESSMENT & PLAN
Recurrent infected chronic right hip open ulcer, now with malodorous drainage with surrounding erythema
Chronic R Hip wound flare
Has colostomy bag
- HX chronic osteo
- Empiric IV Zosyn
- Wound care CS to eval for any indication for surgical debridement
T2DM
- add ISS low
- Not on any diabetic Meds
- Check HgbA1c
Essential Hypertension
- on amlodipine and losartan
- Castro HCTZ
Hx Bilateral Lower Ext DVT
- on AQUATIC PHYSIOTHERAPIST Eliquis
T12 Spinal Injury with Paraplegia
- wheelchair bound at baseline
Neurogenic Bladder
- intermittent straight cath
Known HX
HX Non-sustained VT
Recurrent SBO HX
DVT Px: SCD
Full code
IP MS
[2025-01-31] MEDS: DILAUDID 0.25 MG IV (21:51)
[2025-01-31 22:00] VITALS: BP 112/59
[2025-01-31 23:00] VITALS: BP 100/55
[2025-02-01] VITALS: BP 106/54
[2025-02-01 00:48] LABS: Glucose - Point of Care 125 mg/dl (70-99)
[2025-02-01 00:56] LABS: Urine Character Clear (Clear)
[2025-02-01 02:00] VITALS: BP 118/56
[2025-02-01 02:21] LABS: Urine Red Blood Cell 0-2 /HPF (0-2)
--- NOTE | 2025-02-01 02:26 | DOWNTIME ---
There was a [employer] Downtime on 02/01/2025 from 0100 to 02/01/2025 at 0220. Downtime documentation of patient's care, including medication administrations, has been reconciled in the electronic record per guidelines. Refer to the
patient's paper chart under the miscellaneous tab to see printed paper medication records and downtime forms.
[2025-02-01] MEDS: ZOSYN 50 IV ×3 (02:34→20:23)
[2025-02-01] MEDS: ATIVAN 1 MG PO ×2 (02:35→22:22)
[2025-02-01] MEDS: LYRICA 75 MG PO ×4 (02:35→21:44)
[2025-02-01 06:09] LABS: Hematocrit 31.2 % (39.0-52.0); Hemoglobin 10.1 g/dL (13.0-18.0); Mean Corp Hgb Conc. 32.4 g/dL (33.0-37.0); Mean Corpuscular Volume 78.4 fL (80.0-94.0); Platelet Count 306 10^3/uL (130-400); Red Cell Dist. Width 14.9 % (11.5-14.5)
[2025-02-01 06:42] LABS: ALT (SGPT) 25 U/L (0-50); AST (SGOT) 22 U/L (17-59); Albumin 2.9 g/dl (3.5-5.0); Alkaline Phosphatase 67 U/L (38-126); Blood Urea Nitrogen 20 mg/dl (9-20); Calcium 8.4 mg/dl (8.4-10.2); Carbon Dioxide 26 mmol/L (22-30); Chloride 107 mmol/L (98-107); Estimated Creatinine Clearance 118 ml/min; Glucose 96 mg/dl (70-99); Potassium 3.9 mmol/L (3.5-5.1); Sodium 137 mmol/L (135-145); Total Protein 5.7 g/dl (6.3-8.2); eGFR > 60.00
[2025-02-01 07:00] VITALS: BP 110/56
--- NOTE | 2025-02-01 07:28 | EDRN ---
vital signs have not been performed since 229901/12/2025, will obtain vital signs and temp now
[2025-02-01 08:12] LABS: Glucose - Point of Care 116 mg/dl (70-99)
[2025-02-01] MEDS: NOVOLOG FLEXPEN-LOW RESISTANCE SC (08:15)
[2025-02-01] MEDS: ZOSYN IV ×2 (08:16→09:15)
[2025-02-01] MEDS: NORVASC 10 MG PO (08:17)
--- NOTE | 2025-02-01 08:21 | VNURNOTE ---
Chart reviewed. Patient is current with [facility]. Will continue to follow hospital course and DC plans.
--- NOTE | 2025-02-01 08:52 | W.PN.HOSP.TC ---
Addendum entered and electronically signed by Aniceto Braswell MD 02/01/25 14:28:
Patient met sepsis criteria by leukocytosis, tachypnea, tachycardia although overall clinically stable.
Original Note:
Today's Communication/Plan
-
see plan
Assessment / Plan
Assessment / Plan
Gen: NAD, AAOx3.
Eyes: EOMI, PERRLA, no scleral icterus.
Neck: supple.
CV: RRR, +S1/S2, no m/r/g.
Resp: CTAB, no rales, wheezes, or rhonchi.
Abd: +BS, soft, NT, ND
Skin: R hip with stage 4 pressure ulcer with minimal necrotic tissue and surrounding erythema
Neuro: CN 2-12 intact, paraplegic
Psych: Normal mood and affect.
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
-now with malodorous drainage with surrounding erythema
-currently on Zosyn
-follow WCx/BCxs
-check CT R hip
-c/s ID/surg/wound care
DM2:
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
-SSI/accuchecks
-check a1c
Other problems:
h/o colosomy
Essential HTN: cont Norvasc
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
Neurogenic Bladder, intermittently straight caths
h/o NSVT
h/o recurrent SBO
FULL/SCDs
Anticipated Discharge: 24 - 48 hours
Subjective/Interval History
-
Date of Service: February 01, 2025
No new complaints.
Objective Data
-
Labs:
Laboratory Results
02/01/25
06:01
WBC 9.3
Hgb 10.1 L
Hct 31.2 L
Plt Count 306
Sodium 137
Potassium 3.9
Chloride 107
Carbon Dioxide 26
BUN 20
Creatinine 0.7
Glucose 96
Calcium 8.4
Total Bilirubin 0.7
AST 22
ALT 25
Alkaline Phosphatase 67
Vital Signs:
Vital Signs
Temp Pulse Resp BP Pulse Ox
99.2 F 77 16 101/57 98
02/01/25 07:00 02/01/25 08:17 02/01/25 07:00 02/01/25 08:17 02/01/25 07:00
[2025-02-01 09:35] LABS: Glycohemoglobin (HgbA1c) 5.4 % (4.0-5.6)
--- NOTE | 2025-02-01 10:38 | WOUNDNOTE ---
WON RN note: Patient admitted with Infected hip wound.
See H&P for complete history. Lives alone able to manage independently,VN 3x per week.
PMH: NIDDM, T12 paraplegia since age 15, 02/04/20 epidural abscess, colostomy, neurogenic bladder, self catheterizes, inflatable penile prosthesis and multiple PI's, + osteomyelitis R hip stage 4 PI. skin flaps, A fib and HTN.
Wound Location and type/assessment: Patient last seen on 11/25/24 for multiple chronic PI's. R hip with larger stage 4 PI, foul odor, chin/solis slough worse compared to last seen. Patient states he goes to Dr. Beltran for wound care and per patient he
is not a surgical candidate for a flap. Wound culture, I&D consult and surgical consult pending. R lateral knee with abrasion, base pink with small slough. L ischium stage 3 vs unstageable PI, base mostly solis/brown larger than last seen. Sacrum
blanchable pink. R ischium intact. L lateral ankle with healed PI, thin dry flaky skin,blanchable pink. B/L blanchable heels. Patient states he is independent with care but still has Visiting nurses. Has air mattress able to turn self and using
alternating air wheelchair cushion called Ease. Has a large parastomal hernia, Colostomy changed by patient independently, using own Col[employer] supplies. Confirmed no peristomal skin issues.
Appetite: Good, encourage protein in diet.
Pressure redistribution devices in place: Patient placed on air mattress by nurse Mackey. Turning schedule. Pillow under calves placed by nursing.
Plan: Local wound care done today. Will order Dakin's to clean wounds, absorbant dressing for R hip until further orders from Surgery. Will order Santyl for L ischium and R knee. All other blanchable sites foams applied. Colostomy care per
patient. Will confirm orders with hospitalist. Update care plan and nurse Narendra.
Will follow along peripherally and assist as needed.
Note to case management requested for discharge: resume VN services.
Recommend follow up with surgeon.
--- NOTE | 2025-02-01 10:46 | CM ---
CM met with pt bedside
Pt resides alone in a ranc[place] with ramp entrance
Pt has paraplegia and he is W/C bound
He is independent with transfers and all personal care, drives+
Pt is current with [facility] and attends the outpt wound center at [facility]
PCP- Richie Francois
Rx- [facility] vs [facility]
Surgery/WOC/ID consults placed
Discharge Disposition- anticipate home with [facility], watch for add'l needs
Pt noted he prefers for his scripts to be sent to [facility] for home delivery and he may not be able to obtain Rx quickly if [facility] [address]
--- NOTE | 2025-02-01 11:41 | CON.GS ---
Addendum entered and electronically signed by Colton Fernando MD 02/01/25 13:20:
Patient seen and examined.
Patient is a 59 yo M with a complex PMH notable for NIDDM, paraplegia, chronic osteomyelitis, and s/p diverting colostomy who presents with a chronic RIGHT hip wound. Wound has been present for decades. Previous treatment at [facility]
including debridements, orthopedic evaluation, and infectious disease management with suppressive IV antibiotics. He currently follows with Dr. Jeffrey Beltran at [facility] wound [facility] center. He has noticed increased size in the wound over the past
few years. Of recent he was noted to have new, copious, foul-smelling drainage from the wound prompting presentation to the ED. He reports new odor beginning Friday with fevers and chills beginning Friday, acknowledging these are symptoms he has
often presented with infections in the past. He recently was on a course of doxycycline for MRSA, otherwise denies new changes to management or medications.
Gen: NAD
Ext: RIGHT hip with erythema, minimal pain, no induration, large 10 cm wound with exposed soft tissue and palpable bone, necrotic soft tissue surrounding the femoral head, purulent fluid expressed
Labs and CT scan were reviewed
Patient is a 59 yo M p/w acute on chronic infection of the entire RIGHT hip involving the majority of his soft tissue and bone.
Significantly extensive infection that is beyond General Surgery management here at [facility]. Recommend Orthopedic evaluation for second opinion. We discussed that given the extensive nature of his infection he likely will need an
invasive orthopedic resection; hip disarticulation versus hemipelvectomy. Pending above, he may need transfer to a tertiary care center; discussed [facility] prior treatments at [place]). Continue with IV antibiotics and local
wound care in the interim. All questions answered. Call with any questions or concerns.
-- No plans or role for General Surgery at this time
-- Orthopedic evaluation
-- Call with questions or concerns
Original Note:
Medical History
-
Chief Complaint: new drainage of chronic wound
History of Present Illness:
59yoM PMH DM, paraplegia, colostomy presenting with acute changes of his chronic wound. Pt has had chronic decubitus wounds for decades. The R wound has increased sigifcantly in size in the last few years, reaching the bone 2 years ago with chronic
osteo which he takes cipro for at baseline. He has an extensive history of revisions with Dr. Jeffrey Beltran at [facility] and is now presenting from home due to new, copious, foul smelling drainage from the site noted by his visiting nurse Friday. Pt
reports a constant, deep pain that is unchanged since Friday. He reports new odor beginning Friday with fevers and chills beginning Friday, acknowledging these are symptoms he has often presented with infections in the past. He recently was on a
course of doxycycline for MRSA, otherwise denies new changes to management or medications.
With initial presentation of osteomyelitis years ago, pt went to [facility] [place] where they deferred surgery to [place] for medical management. He has had discussions with Dr. Beltran in the past about hip resections, but at those times, it was not deemed
necessary. Pt was continued long a course of home IV abx through PICC line from [facility]. Pt does note the severity of the wound did progress after those IV abx ended.
Past Medical History
Past Medical History: GERD, HTN, NIDDM and Other (paraplegia T12 down, chronic osteomyelitis, colostomy, )
Past Surgical History: Other (extensive hip surgery revisions)
Allergies / Home Medications
Allergy/AdvReac Type Severity Reaction Status Date / Time
ceftriaxone Allergy Rash/pt Verified 01/31/25 16:53
denies.
Tolerated
cefepime.
Sulfa (Sulfonamide Allergy BLISTERS Verified 01/31/25 16:53
Antibiotics) IN MOUTH
sulfisoxazole Allergy BLISTERS Verified 01/31/25 16:53
IN MOUTH
�Medication �Instructions �Recorded �Confirmed �Type
lorazepam 1 mg tablet (Ativan) 1 mg PO BIDPRN PRN anxiety 01/15/22 02/01/25 History
apixaban 5 mg tablet (Eliquis) 5 mg PO BID Blood clot 05/12/23 02/01/25 History
prevention/tx
losartan 100 1 tab PO DAILY Blood Pressure 05/12/23 02/01/25 History
mg-hydrochlorothiazide 25 mg tablet
therapeutic multivitamin 1 tab PO DAILY Supplement 05/12/23 02/01/25 History
ciprofloxacin HCl 500 mg tablet 500 mg PO QHS Infection 10/02/23 02/01/25 History
(Cipro)
pantoprazole 40 mg tablet,delayed 40 mg PO DAILY Gastrointestinal 11/25/24 02/01/25 History
release (Protonix) Issue
pregabalin 75 mg capsule (Lyrica) 75 mg PO TID Neurological Condition 11/25/24 02/01/25 History
amlodipine 10 mg tablet (Norvasc) 10 mg PO DAILY 02/01/25 02/01/25 History
collagenase clostridium histo. 250 1 applic topical DAILY right hip 02/01/25 02/01/25 History
unit/gram topical ointment (Santyl)
Review of Systems
-
A 10 point review of systems was completed, and was negative except as per HPI.
Physical Exam
Vital Signs
Temp Pulse Resp BP Pulse Ox
99.2 F 77 16 101/57 98
02/01/25 07:00 02/01/25 08:17 02/01/25 07:00 02/01/25 08:17 02/01/25 07:00
01/31/25 02/01/25 02/02/25
06:59 06:59 06:59
Actual Weight 93.4 kg
Body Mass Index (BMI) 28.7
Lab Results
02/01/25 06:01
02/01/25 06:01
WBC 9.3 10^3/uL (4.8-10.8) 02/01/25 06:01
Hgb 10.1 g/dL (13.0-18.0) L 02/01/25 06:01
Hct 31.2 % (39.0-52.0) L 02/01/25 06:01
Plt Count 306 10^3/uL (130-400) 02/01/25 06:01
Abs Immat Gran (auto) 0.1 10^3/uL (0-0.05) H 01/31/25 19:52
Neutrophils % 82.2 % (42.2-75.2) H 01/31/25 19:52
Physical Exam
General: Well Developed, Well Nourished, No Apparent Distress and Comfortable
HEENT: Normocephalic and Anicteric
Respiratory: Non Labored Respirations
Cardiac: Regular Rhythm
Skin: Other (R decubitus wound draning foul smelling purulence, necrotic tissue, deep wound)
Neuro: AO x 3, Nonfocal/Grossly Intact (at baseline) and Other (paraplegic at baseline)
Assessment / Plan
-
59yoM PMH HTN, GERD, DM, paraplegia presenting with acute foul smelling purulence with associated fevers and chills from chronic R decubitus wound. Pt has extensive history of chronic infection, abx, debridement, and surgical revisions of this
wound. The CT scan demonstrates extensive soft tissue and bone involvement of infection of the entire hip. We discussed general surgery's scope in terms of debridement and cleaning out the soft tissue, and that it would, at best, only subside it
temporarily. After discussion about extent of infection, pt is in favor of being transferred to a tertiary referral center for further involvement of a multidisciplinary team of ID and orthopedic physicians to further evaluate for medical management
and possible partial pelvectomy.
Plan
Continue abx
Recommend transfer to tertiary center for management of complex wound
[2025-02-01] MEDS: PROTONIX 40 MG PO (11:58)
[2025-02-01 12:02] LABS: Glucose - Point of Care 251 mg/dl (70-99)
[2025-02-01 12:50] LABS: Glucose - Point of Care 233 mg/dl (70-99)
[2025-02-01] MEDS: NOVOLOG FLEXPEN-LOW RESISTANCE 2 UNITS SC ×2 (12:50→17:12)
--- NOTE | 2025-02-01 13:27 | PN.CDI ---
CDI
- -
CDI:
Physician Documentation Request
Admit Date: 01/31/25 22:09
Dear Doctor Michaelle,
Clinical Indicators:
Patient admitted with recurrent infected chronic R hip ulcer with chronic R hip OM.
02/01 Surgical consult, 'He reports new odor beginning Friday with fevers and chills beginning Friday.'
WBC on admission:
01/31/25
19:52
WBC 12.2 H
HR trend on admission:
01/31/25
16:52 01/31/25
19:47 01/31/25
20:00
Pulse 94 101 99
01/31/25
20:15
Pulse 94
RR trend on admission:
01/31/25
19:47 01/31/25
20:45 01/31/25
21:00
Resp Rate 29 21 22
01/31/25
21:30 01/31/25
22:00 01/31/25
22:30
Resp Rate 24 22 23
Please clarify which of the following most accurately describes the status of the patient's infection:
Sepsis, POA
- Systemic manifestations of infection, with 2 or more SIRS criteria which include:
- Fever >100.9 degrees F or hypothermia < 96.8 degrees F
- Leukocytosis - WBC > 12,000 or leukopenia - WBC < 4,000 or > 10% bands
- Tachycardia > 90 beats per minute
- Tachypnea - RR > 20 breaths per minute or PaCO2 , 32mmHg
Source: Merck Manual 2013
Localized Right Hip Infection Only, Without Systemic Illness
Other, please specify
Use of terms such as suspected, likely, concern for, or probable (associated with a specific diagnosis that is being evaluated, monitored, or treated as if it exists) are acceptable and can be coded in the inpatient setting, when documented at the
time of discharge.
Thank you,
TOM Pickering RN
CDI Specialist
available via tiger text
Please use your independent medical judgment in providing your response.
--- NOTE | 2025-02-01 14:45 | W.PN.UPDATE ---
Update Note
Progress Note Update
Pt re-evaluated. Reports he sometimes get chills. Remains afebrile.
CT R-hip: There is an air-filled tract in the lateral soft tissues of the right hip which extends to the proximal right femur. There is a small fluid collection in the soft tissues, versus phlegmon. There are additional small pockets of air in the
lateral and edematous soft tissues. There is a fluid collection in the deformed hip region somewhat increased from prior study. While osteomyelitis is suspected it cannot be confirmed on CT
Case discussed with surgery and ortho c/s recommended. Awaiting ortho and ID evals. I personally discussed with the patient and family members at bedside that he will likely require transfer to [place] (he has had orthopedic care there before).
In the event pt will require transfer I have prepped the pt's transfer forms. Attempted to call [facility] transfer center, remained on hold, and had to leave my personal cell for a call back.
[2025-02-01] MEDS: DILAUDID 0.5 MG IV ×3 (14:48→21:44)
[2025-02-01] MEDS: VANCOCIN 540 MG IV (14:58)
[2025-02-01 15:00] VITALS: BP 140/72
--- NOTE | 2025-02-01 15:23 | CON.ID ---
Consultation
-
Date/Time Consultation Requested: 02/01/2025 0857
Date/Time Consultation Performed: 02/01/2025 1500
Requesting Provider: Dr. Braswell
Performing Provider: Jd
Reason for Consultation: Right hip wound
Chief Complaint / Past History
Chief Complaint
left side abdominal discomfort
History of Present Illness
Travis Calderon is a 59-year-old man being evaluated at request of Dr. Braswell in regards to a right hip wound. History is obtained from chart review, medication review.
Patient has a significant past medical history of T12 paraplegia since age 15, chronic sacral decubiti, diverting colostomy with parastomal hernia being evaluated for a right hip wound. He reports that he has had a right hip wound for the past 2 to
3 years, and overall he has been stable, although somewhat increasing in size.
He was feeling in his usual state of health until Friday when he began to have increasing foul odor from the hip. He called his PCP, but did not hear back. Yesterday, when his visiting nurse was out to see him she found him sitting in a warm room,
but he complained of feeling chilly. She noted that the wound bed appeared necrotic, and the patient notes that while he was in the shower 'tissue was falling off'. He was brought to the hospital for further evaluation.
Initial workup revealed a low-grade leukocytosis. CT imaging of the hip showed extensive changes of the right hip area. Infectious Diseases is asked to comment upon further antimicrobial management.
Past History
Additional Past Medical History:
T12 Paraplegia (since age 15)
DM2
Urinary retention, self-cath
HTN
chronic sacral decubitus
diverting colostomy
Parastomal hernia
Spinal fusions with rods
hx spinal abscess s/p drainage 2019, on suppressive doxycycline
anxiety/depression
GERD
small bowel obstruction
Allergy History:
ceftriaxone Allergy (Verified 01/31/25 16:53)
Rash/pt denies. Tolerated cefepime.
Sulfa (Sulfonamide Antibiotics) Allergy (Verified 01/31/25 16:53)
BLISTERS IN MOUTH
sulfisoxazole Allergy (Verified 01/31/25 16:53)
BLISTERS IN MOUTH
Medications Reviewed: Yes
Current Antibiotics:
Vancomycin (dosing per pharmacy)
Zosyn 3.375 gm IV q.6 hours
Social History
Tobacco: Non-Smoker
Alcohol: None
Drug: None
Employment: Disabled
Family History
Family History: Not Pertinent
Review of Systems
Vital Signs
Temp Pulse Resp BP Pulse Ox
98.4 F 77 16 101/57 98
02/01/25 13:50 02/01/25 08:17 02/01/25 07:00 02/01/25 08:17 02/01/25 07:00
Physical Exam
Physical Exam
Constitutional: No Acute Distress, Comfortable, Chronically Ill and Non-toxic
Eyes: No Conjunctival Hemorrhage and Sclera Anicteric
Oral: No Thrush and No Ulcers
Cardiovascular: Regular Rate and S1/S2; Negative S3/S4
Pulmonary: Clear; Negative Wheezes or Rales
Gastrointestinal: Soft, Non Tender and Non Distended
Genito-Urinary: Negative Narvaez or CVA Tenderness
Extremities: Other (BLE atrophy); Negative Edema
Wound: Other (right hip large wound with malodorous drainage.)
Neurological: AO x 3
Psychological: Calm
Lab / Diagnostic Study Results
02/01/25 06:01
02/01/25 06:01
Abs Immat Gran (auto) 0.1 10^3/uL (0-0.05) H 01/31/25 19:52
Absolute Neuts (auto) 10.1 10^3/uL (1.4-6.5) H 01/31/25 19:52
Absolute Lymphs (auto) 1.4 10^3/uL (1.2-3.4) 01/31/25 19:52
Absolute Monos (auto) 0.7 10^3/uL (0.1-0.6) H 01/31/25 19:52
Absolute Basos (auto) 0.0 10^3/uL (0-0.2) 01/31/25 19:52
Immature Gran % 0.4 % (0-0.5) 01/31/25 19:52
Neutrophils % 82.2 % (42.2-75.2) H 01/31/25 19:52
Lymphocytes % 11.7 % (20.5-51.1) L 01/31/25 19:52
Monocytes % 5.3 % (1.7-9.3) 01/31/25 19:52
Eosinophils % 0.1 % (0-6) 01/31/25 19:52
Basophils % 0.3 % (0-2) 01/31/25 19:52
Lactic Acid Cancelled 01/31/25 23:18
Ur Squamous Epith Cells 11-15 /LPF (Few) 02/01/25 00:45
Microbiology Results
Micro:
01/31/25 21:11 Wound Culture - Pending
Hip - Right Gram Stain - Preliminary
01/31/25 19:52 Blood Culture - Pending
Blood/Venous
02/01/25 00:45 Urine Culture - Pending
Urine
02/01/25 00:45 Blood Culture - Pending
Blood/Venous
01/31/25 20:22 Blood Culture - Pending
Blood/Venous
Imaging:
02/01/2025 CT lower extremity: right iliac bone is deformed with chronic bone changes. No normal acetabulum present. Soft tissue inflammation surrounding the pelvis and proximal femur. There are small air collections within the edematous soft
tissue. There is a sinus tract extending from the lateral soft tissues to the proximal femur. There is a probable small fluid collection versus phlegmon in this region. Fluid in the soft tissues of the hip joint seen on previous exams has
increased. No free fluid in the visualized portions of the pelvis. Please see full dictation for additional detail.
Assessment / Plan
Right hip wound with likely osteomyelitis
Leukocytosis; improved
T12 Paraplegia (since age 15)
DM2
Urinary retention, self-cath
HTN
chronic sacral decubitus
hx diverting colostomy
Parastomal hernia
Spinal fusions with rods
hx spinal abscess s/p drainage 2019, on suppressive doxycycline
anxiety/depression
GERD
small bowel obstruction
Recommendations:
Case discussed with admitting hospitalist.
CT shows extensive changes of the right hip area, with suspected osteomyelitis.
Patient may ultimately need debridement or other surgery to the area.
Agree with transfer to [place], where patient has been evaluated on prior occasions.
Blood cultures, urine culture and wound culture have been obtained. Prior wound cultures have revealed growth of urine strep, but a urine culture from 11/25/2024 revealed growth of ESBL Klebsiella pneumoniae.
Monitor white count and temperature curve.
Local care to the multiple wounds (right hip, left ischium, sacral area.
Continue with current empiric antibiotics (vancomycin, Zosyn) for the present.
Care Review
Plan reviewed with: Physician (Hospitalist)
--- NOTE | 2025-02-01 15:47 | PHA.VAN.IN ---
Assessment
- Assessment
Renal Function: Appears similar to baseline
Concomitant Antimicrobials: piperacillin/tazobactam
AUC Dosing Plan
- Dosing Variables
Dosing Weight (kg): 93
Dosing CrCl (ml/min): 118
Vd coefficient (L/kg): 0.7
- Empiric Dosing
Initial / Loading Dose: 2000mg 01/31 20:47 PLUS 2000mg 02/01 14:58
Maintenance Regimen: Vanc 1500mg Q12H starting 02/02 06
Estimated AUC (mcg*h/mL): 485
Estimated Peak (mcg*h/mL): 32.6
Estimated Trough (mcg/ml): 11.1
Estimated Half Life (H): 6.8
Given length of time between load and initiation of consult, will re-load patient today
- Monitoring
No levels ordered at this time: consider levels in next few days
Pharmacokinetics Vancomycin I
- -
Patient Age: 59
Patient Sex: Male
Vancomycin Day #: 1
Indication: Bone And Joint
Requesting Provider: Dr. Braswell / Jd
Pertinent Antimicrobial Allergies:
ceftriaxone - rash (patient denies, toelrated cefepime)
Sulfonamide antibiotics - blisters in mouth
Height / Weight:
Height 5 ft 11 in
Actual Weight 93.4 kg
Pertinent Past Medical History: T12 paraplegia, DM2
- Vital Signs / Lab Results
Temp Pulse Resp BP Pulse Ox
98.1 F 93 12 140/72 99
02/01/25 15:00 02/01/25 15:00 02/01/25 15:00 02/01/25 15:00 02/01/25 15:00
Lab Results - Hematology
01/31/25 02/01/25
19:52 06:01
WBC 12.2 H 9.3
Lab Results - Chemistry
01/31/25 02/01/25
19:52 06:01
BUN 22 H 20
Creatinine 0.7 0.7
Estimated Creat Clear 118 118
Albumin 3.6 2.9 L
01/31/25 01/31/25
19:52 23:18
Lactic Acid 1.6 Cancelled
Lab Results - Urine
02/01/25
00:45
Urine Nitrite (Reflex) Negative
Leukocyte Esterase Rfl 1+ A
Urine WBC (Reflex) 6-10
Ur Squamous Epith Cells 11-15
Urine Bacteria (Reflex) Few A
Microbiology Results
01/31/25 21:11 Gram Stain - Preliminary
Hip - Right
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
[2025-02-01 17:12] LABS: Glucose - Point of Care 217 mg/dl (70-99)
--- NOTE | 2025-02-01 17:42 | PTCARENOTE ---
pt transferred from ED to at 1740 to this RN. pt is aaox3, VSS. per report BG was 217 but pt does not want dinner. coverage of 2units given. pt straight caths himself and does his own colostomy care. pt with significant wounds tht were dressed
and seen by wound care today.
[2025-02-01 17:45] VITALS: BP 158/65; BMI 28.4
[2025-02-01 21:35] LABS: Glucose - Point of Care 232 mg/dl (70-99)
[2025-02-01 23:01] VITALS: BP 122/60
[2025-02-02] MEDS: ZOSYN 50 IV ×3 (02:03→14:57)
[2025-02-02] MEDS: DILAUDID 0.5 MG IV ×7 (02:38→23:38)
[2025-02-02 06:00] VITALS: BMI 27.6
[2025-02-02] MEDS: VANCOCIN 530 MG IV ×2 (06:34→19:22)
[2025-02-02 07:22] LABS: Hematocrit 32.0 % (39.0-52.0); Hemoglobin 10.0 g/dL (13.0-18.0); Mean Corp Hgb Conc. 31.3 g/dL (33.0-37.0); Mean Corpuscular Volume 80.2 fL (80.0-94.0); Platelet Count 342 10^3/uL (130-400); Red Cell Dist. Width 14.9 % (11.5-14.5)
[2025-02-02 07:37] VITALS: BP 123/65
[2025-02-02 07:53] LABS: Blood Urea Nitrogen 17 mg/dl (9-20); Calcium 9.0 mg/dl (8.4-10.2); Carbon Dioxide 27 mmol/L (22-30); Chloride 105 mmol/L (98-107); Estimated Creatinine Clearance 103 ml/min; Glucose 133 mg/dl (70-99); Potassium 4.0 mmol/L (3.5-5.1); Sodium 139 mmol/L (135-145); eGFR > 60.00
--- NOTE | 2025-02-02 08:04 | W.PN.HOSP.TC ---
Addendum entered and electronically signed by Aniceto Braswell MD 02/02/25 10:08:
Both the image of the CT scan of the right hip and the report need to be sent to [facility] as the patient may be transferred there.
Original Note:
Today's Communication/Plan
-
see plan
Assessment / Plan
Assessment / Plan
Gen: NAD, AAOx3.
Eyes: EOMI, PERRLA, no scleral icterus.
Neck: supple.
CV: Remains RRR, +S1/S2, no m/r/g.
Resp: Remains CTAB, no rales, wheezes, or rhonchi.
Abd: +BS, soft, NT, ND
Skin: R hip with stage 4 pressure ulcer with purulent discharge
Neuro: CN 2-12 intact, paraplegic
Psych: Normal mood and affect.
02/01/25 00:45 Blood/Venous Blood Culture - Preliminary
No Growth in 24 hours- Final report to follow
01/31/25 19:52 Blood/Venous Blood Culture - Preliminary
No Growth in 24 hours- Final report to follow
01/31/25 20:22 Blood/Venous Blood Culture - Preliminary
No Growth in 24 hours- Final report to follow
01/31/25 21:11 Hip - Right Gram Stain - Preliminary
CT RLE: There is an air-filled tract in the lateral soft tissues of the right hip which extends to the proximal right femur. There is a small fluid collection in the soft tissues, versus phlegmon. There are additional small pockets of air in the
lateral and edematous soft tissues. There is a fluid collection in the deformed hip region somewhat increased from prior study. While osteomyelitis is suspected it cannot be confirmed on CT.
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
-now with malodorous drainage with surrounding erythema
-currently on Zosyn
-follow WCx/BCxs
-check CT R hip
-ID/surg/ortho following, all recommending transfer to tertiary care center.
-Discussed with [facility] 02/01/25 and 02/02/25, surgical team at [facility] to review CT R hip prior to making determination as to whether the pt is accepted.
DM2:
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
-SSI/accuchecks
-a1c 5.4%
-pt attributes current a1c to weight loss
Other problems:
h/o colosomy
Essential HTN: cont Norvasc
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
Neurogenic Bladder, intermittently straight caths
h/o NSVT
h/o recurrent SBO
FULL/SCDs
Anticipated Discharge: 24 - 48 hours
Subjective/Interval History
-
Date of Service: February 02, 2025
No new complaints. Still with right hip pain.
Objective Data
-
Labs:
Laboratory Results
02/02/25
06:20
WBC 8.8
Hgb 10.0 L
Hct 32.0 L
Plt Count 342
Sodium 139
Potassium 4.0
Chloride 105
Carbon Dioxide 27
BUN 17
Creatinine 0.8
Glucose 133 H
Calcium 9.0
Vital Signs:
Vital Signs
Temp Pulse Resp BP Pulse Ox
99.5 F 91 18 122/60 100
02/01/25 23:01 02/01/25 23:01 02/01/25 23:01 02/01/25 23:01 02/01/25 23:01
I&O
02/01/25 02/02/25 02/03/25
06:59 06:59 06:59
Intake Total 2410 / 2410
Output Total 700 / 700
Balance 1710 / 1710
--- NOTE | 2025-02-02 08:10 | PHA.VAN.FU ---
Vancomycin Assessment / Plan
- Assessment
Renal Function: Stable
WBC's are: WNL
In the past 24 hrs, patient has been: Afebrile
Concomitant Antimicrobials: piperacillin/tazobactam
- Dosing Plan
Continue: Vanc 1500mg Q12H
- Monitoring Plan
No level(s) ordered at this time: consider levels in next few days
- Follow Up
Pharmacy will continue to follow.
Vancomycin Follow UP
- -
Patient Age: 59
Patient Sex: Male
Vancomycin Day #: 2
Indication: Bone And Joint
Requesting Provider: Dr. Braswell / Jd
Pertinent Antimicrobial Allergies:
ceftriaxone - rash (patient denies, toelrated cefepime)
Sulfonamide antibiotics - blisters in mouth
Height / Weight:
Height 5 ft 11 in
Actual Weight 89.721 kg
Pertinent Past Medical History: T12 paraplegia, DM2
- Vital Signs / Lab Results
Temp Pulse Resp BP Pulse Ox
99.5 F 91 18 122/60 100
02/01/25 23:01 02/01/25 23:01 02/01/25 23:01 02/01/25 23:01 02/01/25 23:01
Lab Results - Hematology
01/31/25 02/01/25 02/02/25
19:52 06:01 06:20
WBC 12.2 H 9.3 8.8
Lab Results - Chemistry
01/31/25 02/01/25 02/02/25
19:52 06:01 06:20
BUN 22 H 20 17
Creatinine 0.7 0.7 0.8
Estimated Creat Clear 118 118 103
Albumin 3.6 2.9 L
01/31/25 01/31/25
19:52 23:18
Lactic Acid 1.6 Cancelled
Microbiology Results
02/01/25 00:45 Blood Culture - Preliminary
Blood/Venous No Growth in 24 hours- Final report to follow
01/31/25 19:52 Blood Culture - Preliminary
Blood/Venous No Growth in 24 hours- Final report to follow
01/31/25 20:22 Blood Culture - Preliminary
Blood/Venous No Growth in 24 hours- Final report to follow
01/31/25 21:11 Gram Stain - Preliminary
Hip - Right
[2025-02-02 08:22] LABS: Glucose - Point of Care 131 mg/dl (70-99)
[2025-02-02] MEDS: NOVOLOG FLEXPEN-LOW RESISTANCE SC ×2 (08:39→11:36)
[2025-02-02] MEDS: PROTONIX 40 MG PO (09:13)
[2025-02-02] MEDS: DAKIN'S SOLUTION 0.125% 1/4 STRENGTH 10 ML TOPICAL (09:14)
[2025-02-02] MEDS: NORVASC 10 MG PO (09:14)
[2025-02-02] MEDS: LYRICA 75 MG PO ×3 (09:14→21:25)
[2025-02-02] MEDS: SANTYL OINTMENT 1 APPLIC TOPICAL (09:15)
[2025-02-02] MEDS: ATIVAN 1 MG PO (09:52)
[2025-02-02 10:12] VITALS: BMI 27.6
[2025-02-02 11:30] LABS: Glucose - Point of Care 120 mg/dl (70-99)
--- NOTE | 2025-02-02 12:13 | W.PN.UPDATE ---
Update Note
Progress Note Update
Attempted to transfer the patient to [facility] (as outlined in prior documentation). I just got off of the phone with orthopedic surgeon Dr. Tima Shook. After he reviewed the CT R hip as well as prior documentation from the patient's prior
admission at [facility] he stated that he would not accept the patient in transfer as he did not think they would be able to offer any surgical intervention.
[2025-02-02 13:53] VITALS: BMI 27.6
--- NOTE | 2025-02-02 15:27 | W.PN.UPDATE ---
Update Note
Progress Note Update
I spoke to the patient over the phone. I explained to him that [facility] did not accept him in transfer. I did confirm with the patient that he would be agreeable to surgery should be offered to him. He stated that he is willing to undergo any
procedure that is recommended and that he is willing to take any risks involved. I explained that tomorrow I will see if [facility] will accept the patient in transfer.
--- NOTE | 2025-02-02 15:31 | W.PN.ID1 ---
Date of Service
Date of Service: February 02, 2025
Today's Communication
Continue antibiotics.
Assessment / Plan
Right hip wound with likely osteomyelitis
Leukocytosis; improved
T12 Paraplegia (since age 15)
DM2
Urinary retention, self-cath
HTN
chronic sacral decubitus
hx diverting colostomy
Parastomal hernia
Spinal fusions with rods
hx spinal abscess s/p drainage 2019, on suppressive doxycycline
anxiety/depression
GERD
small bowel obstruction
Recommendations:
CT shows extensive changes of the right hip area, with suspected osteomyelitis, suspect chronic in nature.
Patient may ultimately need debridement or other surgery to the area.
Patient evaluated by [facility] who declined transfer.
Blood cultures, urine culture and wound culture have been obtained. Prior wound cultures have revealed growth of urine strep, but a urine culture from 11/25/2024 revealed growth of ESBL Klebsiella pneumoniae.
Monitor white count and temperature curve.
Local care to the multiple wounds (right hip, left ischium, sacral area.
Continue with current empiric antibiotics (vancomycin, Zosyn) for the present.
Await wound culture.
Await determination from [facility] as to whether he may be evaluated there.
����������������������������������������������������������
Chief Complaint
-: Other (Right hip wound infection)
Subjective / Review of Systems
Review of Systems: No Fever and No Chills
Vital Signs / Physical Exam
Vital Signs
Vital Signs
Temp Pulse Resp BP Pulse Ox
98.5 F 90 16 123/65 100
02/02/25 07:37 02/02/25 09:14 02/02/25 07:37 02/02/25 09:14 02/02/25 08:13
Physical Exam
Constitutional: No Acute Distress, Comfortable, Chronically Ill and Non-toxic
Eyes: Sclera Anicteric
Cardiovascular: S1/S2; Negative S3/S4
Pulmonary: Non Labored
Gastrointestinal: Soft, Non Tender and Non Distended
Extremities: Edema; Negative Erythema
Wound: Other (Right hip wound dressed. Positive malodor.)
Neurological: Awake and Alert
Psychological: Calm
Objective Data
Lab Data
Lab Results
02/02/25 06:20
02/02/25 06:20
Estimated Creat Clear 103 ml/min 02/02/25 06:20
Lactic Acid Cancelled 01/31/25 23:18
Total Bilirubin 0.7 mg/dl (0.2-1.3) 02/01/25 06:01
AST 22 U/L (17-59) 02/01/25 06:01
ALT 25 U/L (0-50) 02/01/25 06:01
Alkaline Phosphatase 67 U/L (38-126) 02/01/25 06:01
Most recent labs reviewed.
Micro Results:
02/01/25 00:45 Urine Culture - Final
Urine NO GROWTH
01/31/25 21:11 Wound Culture - Preliminary
Hip - Right Gram Stain - Preliminary
02/01/25 00:45 Blood Culture - Preliminary
Blood/Venous No Growth in 24 hours- Final report to follow
01/31/25 19:52 Blood Culture - Preliminary
Blood/Venous No Growth in 24 hours- Final report to follow
01/31/25 20:22 Blood Culture - Preliminary
Blood/Venous No Growth in 24 hours- Final report to follow
Imaging:
02/01/2025 CT lower extremity: right iliac bone is deformed with chronic bone changes. No normal acetabulum present. Soft tissue inflammation surrounding the pelvis and proximal femur. There are small air collections within the edematous soft
tissue. There is a sinus tract extending from the lateral soft tissues to the proximal femur. There is a probable small fluid collection versus phlegmon in this region. Fluid in the soft tissues of the hip joint seen on previous exams has
increased. No free fluid in the visualized portions of the pelvis. Please see full dictation for additional detail.
Care Review
Plan reviewed with: Physician (Hospitalist)
[2025-02-02 15:33] VITALS: BP 125/60
--- NOTE | 2025-02-02 15:33 | VATNOTE ---
Per infectious disease MD, OK to place PICC with blood cultures pending.
--- NOTE | 2025-02-02 16:04 | CM ---
Chart reviewed and patient to return to home with [facility] when stable, and outpatient wound care center at [facility].
Plan; Home with [facility].
[2025-02-02 16:33] VITALS: BP 125/60
--- NOTE | 2025-02-02 16:53 | PTCARENOTE ---
Pt expressed feeling very down and hopeless in regards to [facility] not taking him for surgical intervention. Dr Braswell discussed options w/ patient earlier, and he will reach out to [facility] tomorrow to see if they will accept him as a transfer. Dr Braswell
made aware, will plan to consult psych tomorrow.
[2025-02-02 17:36] LABS: Glucose - Point of Care 219 mg/dl (70-99)
[2025-02-02] MEDS: NOVOLOG FLEXPEN-LOW RESISTANCE 2 UNITS SC (17:43)
--- NOTE | 2025-02-02 18:28 | PTCARENOTE ---
Pt refused to allow Vanco via is PIV. Awaiting placement confirmation of PICC.
[2025-02-02 21:14] LABS: Glucose - Point of Care 187 mg/dl (70-99)
[2025-02-02] MEDS: ZOSYN 100 IV (21:25)
[2025-02-02 23:00] VITALS: BP 121/66
[2025-02-03] MEDS: ZOSYN 100 IV ×4 (01:38→19:51)
[2025-02-03] MEDS: VANCOCIN 530 MG IV ×2 (05:10→17:48)
[2025-02-03] MEDS: DILAUDID 0.5 MG IV ×5 (05:11→19:52)
[2025-02-03 05:54] VITALS: BMI 28.0
[2025-02-03 06:42] LABS: Hematocrit 29.1 % (39.0-52.0); Hemoglobin 9.3 g/dL (13.0-18.0); Mean Corp Hgb Conc. 32.0 g/dL (33.0-37.0); Mean Corpuscular Volume 80.2 fL (80.0-94.0); Platelet Count 273 10^3/uL (130-400); Red Cell Dist. Width 14.7 % (11.5-14.5)
[2025-02-03 07:00] LABS: Blood Urea Nitrogen 14 mg/dl (9-20); Calcium 8.7 mg/dl (8.4-10.2); Carbon Dioxide 24 mmol/L (22-30); Chloride 109 mmol/L (98-107); Estimated Creatinine Clearance 118 ml/min; Glucose 114 mg/dl (70-99); Potassium 4.2 mmol/L (3.5-5.1); Sodium 136 mmol/L (135-145); eGFR > 60.00
[2025-02-03 07:13] LABS: Glucose - Point of Care 111 mg/dl (70-99)
[2025-02-03 07:36] VITALS: BP 121/61
[2025-02-03] MEDS: NOVOLOG FLEXPEN-LOW RESISTANCE SC (07:52)
--- NOTE | 2025-02-03 08:19 | W.PN.HOSP.TC ---
Today's Communication/Plan
-
see plan
Assessment / Plan
Assessment / Plan
Gen: Remains NAD, AAOx3.
Eyes: EOMI, PERRLA, no scleral icterus.
Neck: supple.
CV: Continues to remain RRR, +S1/S2, no m/r/g.
Resp: Continues to remain CTAB, no rales, wheezes, or rhonchi.
Abd: +BS, soft, NT, ND
Skin: Deferred
Neuro: CN 2-12 intact, paraplegic
Psych: Normal mood and affect.
02/01/25 00:45 Blood/Venous Blood Culture - Preliminary
No Growth in 48 hours- Final report to follow
01/31/25 19:52 Blood/Venous Blood Culture - Preliminary
No Growth in 48 hours- Final report to follow
01/31/25 20:22 Blood/Venous Blood Culture - Preliminary
No Growth in 48 hours- Final report to follow
02/01/25 00:45 Urine Urine Culture - Final
NO GROWTH
01/31/25 21:11 Hip - Right Wound Culture - Preliminary
01/31/25 21:11 Hip - Right Gram Stain - Preliminary
CT RLE: There is an air-filled tract in the lateral soft tissues of the right hip which extends to the proximal right femur. There is a small fluid collection in the soft tissues, versus phlegmon. There are additional small pockets of air in the
lateral and edematous soft tissues. There is a fluid collection in the deformed hip region somewhat increased from prior study. While osteomyelitis is suspected it cannot be confirmed on CT.
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
-now with malodorous drainage with surrounding erythema
-cont IV Vanco/Zosyn
-follow WCx/BCxs
-check CT R hip
-ID/surg/ortho following, all recommending transfer to tertiary care center.
-[facility] would not accept the pt in transfer. I called the [place] transfer center this morning. Dr. Severino (orthopedic traumatologist) is requesting a call directly from Dr. Strauss to discuss reason for transfer. I updated Dr. Strauss with this
request at 0838 today via [employer]. Also discussed with Audelia harman donor support technician. ID and RN updated.
DM2:
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
-SSI/accuchecks
-a1c 5.4%
-pt attributes current a1c to weight loss
Other problems:
h/o colosomy
Essential HTN: cont Norvasc
h/o B/L LE DVT: on Eliquis EHS SPECIALIST. As surgery is clearly days away at best will resume Eliquis today.
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
Neurogenic Bladder, intermittently straight caths
h/o NSVT
h/o recurrent SBO
FULL/Eliquis
Total time spent on today's encounter was 50 minutes which included time spent in counseling the patient/family regarding diagnosis and treatment plan as listed above, goals of care, and symptom management. Case was discussed with nursing staff,
specialists, and care coordinators/case management. All labs and imaging personally reviewed by me. Remainder the time spent in detailed review of previous records, lab data, imaging, and other medical provider documentation.
Anticipated Discharge: 24 - 48 hours
Subjective/Interval History
-
Date of Service: February 03, 2025
No new complaints.
Objective Data
-
Labs:
Laboratory Results
02/03/25
06:19
WBC 7.7
Hgb 9.3 L
Hct 29.1 L
Plt Count 273 D
Sodium 136
Potassium 4.2
Chloride 109 H
Carbon Dioxide 24
BUN 14
Creatinine 0.7
Glucose 114 H
Calcium 8.7
Vital Signs:
Vital Signs
Temp Pulse Resp BP Pulse Ox
99.9 F 82 18 121/66 96
02/02/25 23:00 02/02/25 23:00 02/02/25 23:00 02/02/25 23:00 02/02/25 23:00
I&O
02/02/25 02/03/25 02/04/25
06:59 06:59 06:59
Intake Total 2410 / 2410 580 / 580
Output Total 700 / 700 300 / 300
Balance 1710 / 1710 280 / 280
[2025-02-03] MEDS: NORVASC 10 MG PO (08:29)
[2025-02-03] MEDS: PROTONIX 40 MG PO (08:29)
[2025-02-03] MEDS: DAKIN'S SOLUTION 0.125% 1/4 STRENGTH 10 ML TOPICAL (08:31)
[2025-02-03] MEDS: SANTYL OINTMENT 1 APPLIC TOPICAL (08:31)
[2025-02-03] MEDS: LYRICA 75 MG PO ×3 (08:31→22:10)
[2025-02-03] MEDS: ATIVAN 1 MG PO (09:19)
--- NOTE | 2025-02-03 09:26 | PTCARENOTE ---
prn pain meds and prn PO ativan given this morning. See MAR for proper documentation.
--- NOTE | 2025-02-03 10:38 | CM ---
Chart reviewed and patient is for hospital to hospital transfer no Auth required by insurance.
Plan; Hospital to hospital transfer
[2025-02-03] MEDS: ELIQUIS 5 MG PO ×2 (10:44→19:51)
[2025-02-03 12:54] LABS: Glucose - Point of Care 165 mg/dl (70-99)
[2025-02-03] MEDS: NOVOLOG FLEXPEN-LOW RESISTANCE 1 UNITS SC ×2 (13:02→17:47)
--- NOTE | 2025-02-03 15:00 | PHA.VAN.FU ---
Vancomycin Assessment / Plan
- Assessment
Renal Function: Stable
WBC's are: WNL
In the past 24 hrs, patient has been: Afebrile
Concomitant Antimicrobials: piperacillin/tazobactam
- Dosing Plan
Continue: Vanc 1500mg Q12H
- Monitoring Plan
Peak Level: 02/03 21:30
Trough Level: 02/04 05:30
Monitoring Comments: levels to be drawn after 4th maintenance dose
- Follow Up
Pharmacy will continue to follow.
Vancomycin Follow UP
- -
Patient Age: 59
Patient Sex: Male
Vancomycin Day #: 3
Indication: Bone And Joint
Requesting Provider: Dr. Braswell / Jd
Pertinent Antimicrobial Allergies:
ceftriaxone - rash (patient denies, toelrated cefepime)
Sulfonamide antibiotics - blisters in mouth
Height / Weight:
Height 5 ft 11 in
Actual Weight 91.081 kg
Pertinent Past Medical History: T12 paraplegia, DM2
- Vital Signs / Lab Results
Temp Pulse Resp BP Pulse Ox
98.6 F 71 18 121/61 100
02/03/25 07:36 02/03/25 07:36 02/03/25 07:36 02/03/25 07:36 02/03/25 07:36
Lab Results - Hematology
01/31/25 02/01/25 02/02/25
19:52 06:01 06:20
WBC 12.2 H 9.3 8.8
02/03/25
06:19
WBC 7.7
Lab Results - Chemistry
01/31/25 02/01/25 02/02/25
19:52 06:01 06:20
BUN 22 H 20 17
Creatinine 0.7 0.7 0.8
Estimated Creat Clear 118 118 103
Albumin 3.6 2.9 L
02/03/25
06:19
BUN 14
Creatinine 0.7
Estimated Creat Clear 118
Albumin
01/31/25 01/31/25
19:52 23:18
Lactic Acid 1.6 Cancelled
Microbiology Results
01/31/25 21:11 Wound Culture - Preliminary
Hip - Right Gram negative bacilli
Enterococcus species
Gram Stain - Preliminary
02/01/25 00:45 Blood Culture - Preliminary
Blood/Venous No Growth in 48 hours- Final report to follow
01/31/25 19:52 Blood Culture - Preliminary
Blood/Venous No Growth in 48 hours- Final report to follow
01/31/25 20:22 Blood Culture - Preliminary
Blood/Venous No Growth in 48 hours- Final report to follow
02/01/25 00:45 Urine Culture - Final
Urine NO GROWTH
[2025-02-03 15:31] VITALS: BP 133/67
[2025-02-03 17:45] LABS: Glucose - Point of Care 150 mg/dl (70-99)
[2025-02-03 21:39] LABS: Glucose - Point of Care 176 mg/dl (70-99)
[2025-02-03 23:04] VITALS: BP 113/60
[2025-02-04] MEDS: DILAUDID 0.5 MG IV ×6 (00:32→21:08)
[2025-02-04] MEDS: ZOSYN 100 IV ×4 (01:56→19:45)
[2025-02-04 05:28] LABS: Hematocrit 29.1 % (39.0-52.0); Hemoglobin 9.1 g/dL (13.0-18.0); Mean Corp Hgb Conc. 31.3 g/dL (33.0-37.0); Mean Corpuscular Volume 79.5 fL (80.0-94.0); Platelet Count 284 10^3/uL (130-400); Red Cell Dist. Width 14.8 % (11.5-14.5)
[2025-02-04 05:42] VITALS: BMI 28.2
[2025-02-04 05:50] LABS: Blood Urea Nitrogen 11 mg/dl (9-20); Calcium 8.6 mg/dl (8.4-10.2); Carbon Dioxide 25 mmol/L (22-30); Chloride 108 mmol/L (98-107); Estimated Creatinine Clearance 103 ml/min; Glucose 132 mg/dl (70-99); Potassium 4.0 mmol/L (3.5-5.1); Sodium 138 mmol/L (135-145); eGFR > 60.00
[2025-02-04] MEDS: VANCOCIN 530 MG IV (05:52)
[2025-02-04 07:00] VITALS: BP 121/63
[2025-02-04 07:18] LABS: Glucose - Point of Care 116 mg/dl (70-99)
--- NOTE | 2025-02-04 08:05 | W.PN.HOSP.TC ---
Today's Communication/Plan
-
see plan
Assessment / Plan
Assessment / Plan
Gen: continues to remain NAD, AAOx3.
Eyes: EOMI, PERRLA, no scleral icterus.
Neck: supple.
CV: RRR, +S1/S2, no m/r/g.
Resp: CTAB, no rales, wheezes, or rhonchi.
Abd: remains +BS, soft, NT, ND
Skin: Deferred
Neuro: CN 2-12 intact, paraplegic
Psych: Normal mood and affect.
02/01/25 00:45 Blood/Venous Blood Culture - Preliminary
No Growth in 72 hours- Final report to follow
01/31/25 19:52 Blood/Venous Blood Culture - Preliminary
No Growth in 72 hours- Final report to follow
01/31/25 20:22 Blood/Venous Blood Culture - Preliminary
No Growth in 72 hours- Final report to follow
01/31/25 21:11 Hip - Right Wound Culture - Preliminary
Gram negative bacilli
Enterococcus species
01/31/25 21:11 Hip - Right Gram Stain - Preliminary
02/01/25 00:45 Urine Urine Culture - Final
NO GROWTH
CT RLE: There is an air-filled tract in the lateral soft tissues of the right hip which extends to the proximal right femur. There is a small fluid collection in the soft tissues, versus phlegmon. There are additional small pockets of air in the
lateral and edematous soft tissues. There is a fluid collection in the deformed hip region somewhat increased from prior study. While osteomyelitis is suspected it cannot be confirmed on CT.
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
-now with malodorous drainage with surrounding erythema
-cont IV Vanco/Zosyn
-follow WCx/BCxs
-check CT R hip
-ID/surg/ortho following, all recommending transfer to tertiary care center.
-[facility] would not accept the pt in transfer
-I called the [facility] transfer center 02/03/25AM. At that time Dr. Severino (orthopedic traumatologist) requested a call directly from Dr. Strauss to discuss reason for transfer. Dr. Strauss was to discuss the case with Dr. Severino. That being said, after I
spoke to Dr. Strauss, he felt that most likely the best plan of action would be to treat the patient with antibiotics and then have the patient immediately follow-up in the outpatient setting with Dr. Severino.
DM2:
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
-SSI/accuchecks
-a1c 5.4%
-pt attributes current a1c to weight loss
Other problems:
h/o colosomy
Essential HTN: cont Norvasc
h/o B/L LE DVT: cont Eliquis
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
Neurogenic Bladder, intermittently straight caths
h/o NSVT
h/o recurrent SBO
FULL/Eliquis
Anticipated Discharge: Within 24 hours
Subjective/Interval History
-
Date of Service: February 04, 2025
No new complaints.
Objective Data
-
Labs:
Laboratory Results
02/04/25
05:13
WBC 7.5
Hgb 9.1 L
Hct 29.1 L
Plt Count 284
Sodium 138
Potassium 4.0
Chloride 108 H
Carbon Dioxide 25
BUN 11
Creatinine 0.8
Glucose 132 H
Calcium 8.6
Vital Signs:
Vital Signs
Temp Pulse Resp BP Pulse Ox
99.8 F 80 19 113/60 99
02/04/25 00:15 02/03/25 23:04 02/03/25 23:04 02/03/25 23:04 02/03/25 23:04
I&O
02/03/25 02/04/25 02/05/25
06:59 06:59 06:59
Intake Total 580 / 580 480 / 480
Output Total 300 / 300 1000 / 1000
Balance 280 / 280 -520 / -520
--- NOTE | 2025-02-04 08:29 | PHA.VAN.FU ---
Addendum entered and electronically signed by Kaelyn Elliott RPH 02/04/25 10:44:
Evaluated patient in conjunction with resident. Agree with reduction in dosing following supratherapeutic levels and reduced dosing x1 tonight.
Original Note:
Vancomycin Assessment / Plan
- Assessment
Renal Function: Stable
WBC's are: WNL
Concomitant Antimicrobials: piperacillin/tazobactam
- Assessment - Therapeutic Drug Monitoring
Extrapolated Cmax (mcg/mL): 37.5
Peak level was drawn: Appropriately (drawn ~2H after END of infusion)
Extrapolated Cmin (mcg/mL): 19.0
Trough Drawn: Appropriately (drawn ~0.75H BEFORE next dose at 0600)
Levels were drawn: At steady state (drawn following 4th maintenance dose)
Calculated AUC (mcg*h/mL): 655
Calculated ke: 0.0649
Calculated half life (H): 10.7
Calculated Vd (L): 70.52
Calculated Vanc CL (ml/min): 76.23
- Dosing Plan
Adjust Regimen to: vanc 1000mg q12h starting 02/05 0600
New Regimen Predicts: AUC (451), Peak (26.2), Trough (12.8)
Dosing Comments: give 500mg x1 tonight at 1800
- Monitoring Plan
No level(s) ordered at this time: consider within next few days to assess new regimen
- Follow Up
Pharmacy will continue to follow.
Vancomycin Follow UP
- -
Patient Age: 59
Patient Sex: Male
Vancomycin Day #: 4
Indication: Bone And Joint
Requesting Provider: Dr. Braswell / Jd
Pertinent Antimicrobial Allergies:
ceftriaxone - rash (patient denies, toelrated cefepime)
Sulfonamide antibiotics - blisters in mouth
Height / Weight:
Height 5 ft 11 in
Actual Weight 91.626 kg
Pertinent Past Medical History: T12 paraplegia, DM2
- Vital Signs / Lab Results
Temp Pulse Resp BP Pulse Ox
98.7 F 69 16 121/63 100
02/04/25 07:00 02/04/25 07:00 02/04/25 07:00 02/04/25 07:00 02/04/25 07:00
Lab Results - Hematology
02/02/25 02/03/25 02/04/25
06:20 06:19 05:13
WBC 8.8 7.7 7.5
Lab Results - Chemistry
02/02/25 02/03/25 02/04/25
06:20 06:19 05:13
BUN 17 14 11
Creatinine 0.8 0.7 0.8
Estimated Creat Clear 103 118 103
Microbiology Results
02/01/25 00:45 Blood Culture - Preliminary
Blood/Venous No Growth in 72 hours- Final report to follow
01/31/25 19:52 Blood Culture - Preliminary
Blood/Venous No Growth in 72 hours- Final report to follow
01/31/25 20:22 Blood Culture - Preliminary
Blood/Venous No Growth in 72 hours- Final report to follow
01/31/25 21:11 Wound Culture - Preliminary
Hip - Right Gram negative bacilli
Enterococcus species
Gram Stain - Preliminary
02/01/25 00:45 Urine Culture - Final
Urine NO GROWTH
Therapeutic Drug Monitoring
Vancomycin Peak 32.6 ug/ml (18-26) H 02/03/25 21:27
Vancomycin Trough 19.7 ug/ml (5-20) 02/04/25 05:13
[2025-02-04] MEDS: NORVASC 10 MG PO (09:16)
[2025-02-04] MEDS: PROTONIX 40 MG PO (09:17)
[2025-02-04] MEDS: ELIQUIS 5 MG PO ×2 (09:17→19:45)
[2025-02-04] MEDS: NOVOLOG FLEXPEN-LOW RESISTANCE SC (09:17)
[2025-02-04] MEDS: SANTYL OINTMENT 1 APPLIC TOPICAL (09:18)
[2025-02-04] MEDS: DAKIN'S SOLUTION 0.125% 1/4 STRENGTH 1 ML TOPICAL (09:19)
[2025-02-04] MEDS: LYRICA 75 MG PO ×3 (09:20→21:09)
--- NOTE | 2025-02-04 11:14 | W.PN.ID1 ---
Date of Service
Date of Service: February 04, 2025
Today's Communication
Continue current antibiotics. Await final culture data.
Assessment / Plan
Right hip wound with likely osteomyelitis/septic arthritis
Leukocytosis; improved
T12 Paraplegia (since age 15)
DM2
Urinary retention, self-cath
HTN
chronic sacral decubitus
hx diverting colostomy
Parastomal hernia
Spinal fusions with rods
hx spinal abscess s/p drainage 2019, on suppressive doxycycline
anxiety/depression
GERD
small bowel obstruction
Recommendations:
CT shows extensive changes of the right hip area, with suspected osteomyelitis, suspect chronic in nature.
Patient may ultimately need debridement or other surgery to the area.
Patient evaluated by [facility] who declined transfer.
Blood cultures, urine culture and wound culture have been obtained.
Blood cultures to date have been negative. Urine culture without growth.
Right hip wound culture is polymicrobial, with stenotrophomonas, Enterococcus and an additional GNR.
Overall malodor has decreased.
Monitor white count and temperature curve.
Local care to the multiple wounds (right hip, left ischium, sacral area.)
Continue with current empiric antibiotics (vancomycin, Zosyn) for the present.
Await final wound culture.
Ultimately, patient may need a course of home antibiotics as a bridge to evaluation [facility].
����������������������������������������������������������
Chief Complaint
-: Other (Right hip wound infection)
Subjective / Review of Systems
Patient seen and examined. Denies fevers or chills. Notes no pain in the right hip area.
Vital Signs / Physical Exam
Vital Signs
Vital Signs
Temp Pulse Resp BP Pulse Ox
98.7 F 69 16 121/63 100
02/04/25 07:00 02/04/25 09:16 02/04/25 07:00 02/04/25 09:16 02/04/25 07:00
Physical Exam
Constitutional: No Acute Distress, Comfortable, Chronically Ill and Non-toxic
Eyes: Sclera Anicteric
Cardiovascular: S1/S2; Negative S3/S4
Pulmonary: Non Labored
Gastrointestinal: Soft, Non Tender and Non Distended
Extremities: Edema; Negative Erythema
Wound: Other (Right hip wound dressed. Positive malodor.)
Neurological: Awake and Alert
Psychological: Calm
Objective Data
Lab Data
Lab Results
02/04/25 05:13
02/04/25 05:13
Estimated Creat Clear 103 ml/min 02/04/25 05:13
Lactic Acid Cancelled 01/31/25 23:18
Total Bilirubin 0.7 mg/dl (0.2-1.3) 02/01/25 06:01
AST 22 U/L (17-59) 02/01/25 06:01
ALT 25 U/L (0-50) 02/01/25 06:01
Alkaline Phosphatase 67 U/L (38-126) 02/01/25 06:01
Most recent labs reviewed.
Micro Results:
01/31/25 21:11 Wound Culture - Preliminary
Hip - Right Stenotrophomonas maltophilia
Gram negative bacilli
Enterococcus species
Gram Stain - Preliminary
02/01/25 00:45 Blood Culture - Preliminary
Blood/Venous No Growth in 72 hours- Final report to follow
01/31/25 19:52 Blood Culture - Preliminary
Blood/Venous No Growth in 72 hours- Final report to follow
01/31/25 20:22 Blood Culture - Preliminary
Blood/Venous No Growth in 72 hours- Final report to follow
02/01/25 00:45 Urine Culture - Final
Urine NO GROWTH
Imaging:
02/01/2025 CT lower extremity: right iliac bone is deformed with chronic bone changes. No normal acetabulum present. Soft tissue inflammation surrounding the pelvis and proximal femur. There are small air collections within the edematous soft
tissue. There is a sinus tract extending from the lateral soft tissues to the proximal femur. There is a probable small fluid collection versus phlegmon in this region. Fluid in the soft tissues of the hip joint seen on previous exams has
increased. No free fluid in the visualized portions of the pelvis. Please see full dictation for additional detail.
Care Review
Plan reviewed with: Physician (Hospitalist)
[2025-02-04 12:18] LABS: Glucose - Point of Care 179 mg/dl (70-99)
[2025-02-04] MEDS: NOVOLOG FLEXPEN-LOW RESISTANCE 1 UNITS SC ×2 (12:56→18:38)
--- NOTE | 2025-02-04 13:41 | W.PN.UPDATE ---
Update Note
Progress Note Update
Spoke with Travis today. He has a chronic, but worsening right hip infection in the face of long standing paraplegia. Currently on IV abx. CT scan shows destruction of the hip joint with no remaining acetabulum. Patient has a good
understanding of the current plan. Continue IV abx. Schedule appoint with Ortho fracture clinic at [place] after discharge to have consultation for definitive treatment options.
I will sign off at this time, please re-consult if there are any changes.
--- NOTE | 2025-02-04 14:57 | PN.CDI ---
CDI
- -
CDI:
Physician Documentation Request
Admit Date: 01/31/25 22:09
Dear Doctor Michaelle,
Clinical Indicators:
Patient admitted with recurrent infected chronic R hip ulcer with chronic R hip OM.
02/01 WOC RN skin/wound not 'Left Ischium stage 3 vs unstageable PI'
Treatment: Alginate, Silicone Border Foam Dressing
Physician documentation of the type and location of wounds is required for compliant documentation. Based on the above clinical findings and your assessment, please provide the following in your progress note:
1. Location of the ulcer/wound, including laterality.
2. Type (etiology) of ulcer/wound:
- Pressure (decubitus) ulcer
- Other, please specify
3. If a pressure ulcer, please also include the stage* of the ulcer:
- Stage 1 - Skin intact, non-blanchable redness
- Stage 2 - Partial thickness loss of dermis, includes intact or open blister
- Stage 3 - Full thickness tissue not including bone, tendon or muscle
- Stage 4 - Full thickness tissue loss, including exposed bone, tendon or muscle
- Unstageable - Full thickness loss in which the base of the ulcer is covered by slough (yellow, solis, osborne, green or brown) and/or eschar (solis, brown or black) in the wound bed.
- Unable to determine
Use of terms such as suspected, likely, concern for, or probable (associated with a specific diagnosis that is being evaluated, monitored, or treated as if it exists) are acceptable and can be coded in the inpatient setting, when documented at the
time of discharge.
Thank you,
TOM Pickering RN
CDI Specialist
available via tiger text
Please use your independent medical judgment in providing your response.
*Source: National Pressure Ulcer Advisory Panel (NPUAP)
[2025-02-04 15:42] VITALS: BP 152/78
--- NOTE | 2025-02-04 15:47 | CM ---
Per Attending, patient will discharge to home with PICC line and IV Antibiotics.
[2025-02-04] MEDS: VANCOCIN HCL 500 MG 100 IV (16:56)
[2025-02-04 18:22] LABS: Glucose - Point of Care 194 mg/dl (70-99)
[2025-02-04] MEDS: FLUSH (NSS) 2 FLUSH IV ×2 (19:48→21:09)
[2025-02-04 21:45] LABS: Glucose - Point of Care 125 mg/dl (70-99)
[2025-02-04 23:45] VITALS: BP 122/57
[2025-02-05] MEDS: DILAUDID 0.5 MG IV ×6 (00:23→22:43)
[2025-02-05] MEDS: FLUSH (NSS) 2 FLUSH IV ×8 (00:24→22:43)
[2025-02-05] MEDS: ZOSYN 100 IV ×4 (02:02→19:23)
[2025-02-05 05:01] LABS: Hematocrit 28.1 % (39.0-52.0); Hemoglobin 8.9 g/dL (13.0-18.0); Mean Corp Hgb Conc. 31.7 g/dL (33.0-37.0); Mean Corpuscular Volume 79.4 fL (80.0-94.0); Platelet Count 303 10^3/uL (130-400); Red Cell Dist. Width 14.6 % (11.5-14.5)
[2025-02-05] MEDS: VANCOCIN 200 IV ×2 (05:01→18:11)
[2025-02-05 05:22] LABS: Blood Urea Nitrogen 12 mg/dl (9-20); Calcium 8.8 mg/dl (8.4-10.2); Carbon Dioxide 24 mmol/L (22-30); Chloride 108 mmol/L (98-107); Estimated Creatinine Clearance 103 ml/min; Glucose 122 mg/dl (70-99); Potassium 4.2 mmol/L (3.5-5.1); Sodium 137 mmol/L (135-145); eGFR > 60.00
[2025-02-05 05:50] VITALS: BMI 28.4
[2025-02-05 07:00] VITALS: BP 117/63
[2025-02-05 07:10] LABS: Glucose - Point of Care 119 mg/dl (70-99)
[2025-02-05] MEDS: PROTONIX 40 MG PO (08:28)
[2025-02-05] MEDS: NOVOLOG FLEXPEN-LOW RESISTANCE SC ×2 (08:28→12:44)
[2025-02-05] MEDS: ELIQUIS 5 MG PO ×2 (08:28→19:22)
[2025-02-05] MEDS: SANTYL OINTMENT 1 APPLIC TOPICAL (08:29)
[2025-02-05] MEDS: NORVASC 10 MG PO (08:29)
[2025-02-05] MEDS: LYRICA 75 MG PO ×3 (08:29→21:35)
[2025-02-05] MEDS: DAKIN'S SOLUTION 0.125% 1/4 STRENGTH 473 ML TOPICAL (08:36)
--- NOTE | 2025-02-05 09:07 | W.PN.HOSP.TC ---
Today's Communication/Plan
-
see plan
Assessment / Plan
Assessment / Plan
Gen: NAD, AAOx3.
Eyes: EOMI, PERRLA, no scleral icterus.
Neck: supple.
CV: remains RRR, +S1/S2, no m/r/g.
Resp: remains CTAB, no rales, wheezes, or rhonchi.
Abd: +BS, soft, NT, ND
Skin: Deferred
Neuro: remains CN 2-12 intact, paraplegic
Psych: Normal mood and affect.
02/01/25 00:45 Blood/Venous Blood Culture - Preliminary
No Growth in 4 days- Final report to follow
01/31/25 19:52 Blood/Venous Blood Culture - Preliminary
No Growth in 4 days- Final report to follow
01/31/25 20:22 Blood/Venous Blood Culture - Preliminary
No Growth in 4 days- Final report to follow
01/31/25 21:11 Hip - Right Wound Culture - Preliminary
Stenotrophomonas maltophilia
Gram negative bacilli
Enterococcus species
01/31/25 21:11 Hip - Right Gram Stain - Preliminary
02/01/25 00:45 Urine Urine Culture - Final
NO GROWTH
CT RLE: There is an air-filled tract in the lateral soft tissues of the right hip which extends to the proximal right femur. There is a small fluid collection in the soft tissues, versus phlegmon. There are additional small pockets of air in the
lateral and edematous soft tissues. There is a fluid collection in the deformed hip region somewhat increased from prior study. While osteomyelitis is suspected it cannot be confirmed on CT.
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
-now with malodorous drainage with surrounding erythema
-cont IV Vanco/Zosyn
-follow WCx (awaiting identification fo GNR)
-CT R hip above
-ID/surg/ortho saw in c/s
-At this point in time the plan is for prolonged IV antibiotics and outpatient follow-up with orthopedics at [facility]
DM2:
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
-SSI/accuchecks
-a1c 5.4%
-pt attributes current a1c to weight loss
Other problems:
h/o colostomy
Essential HTN: cont Norvasc
h/o B/L LE DVT: cont Eliquis
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
Neurogenic Bladder, intermittently straight caths
h/o NSVT
h/o recurrent SBO
FULL/Eliquis
Anticipated Discharge: 24 - 48 hours
Subjective/Interval History
-
Date of Service: February 05, 2025
No new complaints.
Objective Data
-
Labs:
Laboratory Results
02/05/25
04:39
WBC 7.0
Hgb 8.9 L
Hct 28.1 L
Plt Count 303
Sodium 137
Potassium 4.2
Chloride 108 H
Carbon Dioxide 24
BUN 12
Creatinine 0.8
Glucose 122 H
Calcium 8.8
Vital Signs:
Vital Signs
Temp Pulse Resp BP Pulse Ox
98.4 F 68 16 117/63 100
02/05/25 07:00 02/05/25 07:00 02/05/25 07:00 02/05/25 07:00 02/05/25 07:00
I&O
02/04/25 02/05/25 02/06/25
06:59 06:59 06:59
Intake Total 480 / 480 1780 / 1780
Output Total 1000 / 1000 1750 / 1750
Balance -520 / -520 30 / 30
--- NOTE | 2025-02-05 10:56 | PHA.VAN.FU ---
Vancomycin Assessment / Plan
- Assessment
Renal Function: Stable
WBC's are: Stable
In the past 24 hrs, patient has been: Afebrile
Concomitant Antimicrobials: Piperacillin/tazobactam
- Dosing Plan
Continue: vancomycin 1000mg IV Q12h
- Monitoring Plan
No level(s) ordered at this time: consider levels in next few days.
- Follow Up
Pharmacy will continue to follow.
Vancomycin Follow UP
- -
Patient Age: 59
Patient Sex: Male
Vancomycin Day #: 5
Indication: [facility]
Requesting Provider: Dr. Braswell / Jd
Pertinent Antimicrobial Allergies:
ceftriaxone - rash (patient denies, toelrated cefepime)
Sulfonamide antibiotics - blisters in mouth
Height / Weight:
Height 5 ft 11 in
Actual Weight 92.351 kg
Pertinent Past Medical History: T12 paraplegia, DM2
- Vital Signs / Lab Results
Temp Pulse Resp BP Pulse Ox
98.4 F 68 16 117/63 100
02/05/25 07:00 02/05/25 07:00 02/05/25 07:00 02/05/25 07:00 02/05/25 07:00
Lab Results - Hematology
02/03/25 02/04/25 02/05/25
06:19 05:13 04:39
WBC 7.7 7.5 7.0
Lab Results - Chemistry
02/03/25 02/04/25 02/05/25
06:19 05:13 04:39
BUN 14 11 12
Creatinine 0.7 0.8 0.8
Estimated Creat Clear 118 103 103
Microbiology Results
01/31/25 21:11 Wound Culture - Preliminary
Hip - Right Stenotrophomonas maltophilia
Acinetobacter lwoffii
Enterococcus species
Gram Stain - Preliminary
02/01/25 00:45 Blood Culture - Preliminary
Blood/Venous No Growth in 4 days- Final report to follow
01/31/25 19:52 Blood Culture - Preliminary
Blood/Venous No Growth in 4 days- Final report to follow
01/31/25 20:22 Blood Culture - Preliminary
Blood/Venous No Growth in 4 days- Final report to follow
Therapeutic Drug Monitoring
Vancomycin Peak 32.6 ug/ml (18-26) H 02/03/25 21:27
Vancomycin Trough 19.7 ug/ml (5-20) 02/04/25 05:13
[2025-02-05 11:21] LABS: Glucose - Point of Care 140 mg/dl (70-99)
[2025-02-05] MEDS: ATIVAN 1 MG PO (11:51)
[2025-02-05 15:00] VITALS: BP 121/61
[2025-02-05 17:32] LABS: Glucose - Point of Care 166 mg/dl (70-99)
[2025-02-05] MEDS: NOVOLOG FLEXPEN-LOW RESISTANCE 1 UNITS SC (18:10)
[2025-02-05] MEDS: FLUSH (NSS) 3 FLUSH IV (19:23)
[2025-02-05 21:18] LABS: Glucose - Point of Care 209 mg/dl (70-99)
[2025-02-05 23:00] VITALS: BP 125/59
[2025-02-06] MEDS: ZOSYN 100 IV ×4 (00:59→19:37)
[2025-02-06] MEDS: FLUSH (NSS) 2 FLUSH IV ×7 (00:59→16:11)
[2025-02-06] MEDS: DILAUDID 0.5 MG IV ×6 (03:21→23:20)
[2025-02-06] MEDS: VANCOCIN 200 IV (05:03)
[2025-02-06] MEDS: ATIVAN 1 MG PO (05:19)
[2025-02-06 06:58] LABS: Glucose - Point of Care 124 mg/dl (70-99)
[2025-02-06 07:00] VITALS: BP 101/59
--- NOTE | 2025-02-06 07:41 | W.PN.HOSP.TC ---
Today's Communication/Plan
-
see plan
Assessment / Plan
Assessment / Plan
Gen: NAD, AAOx3.
Eyes: EOMI, PERRLA, no scleral icterus.
Neck: supple.
CV: remains RRR, +S1/S2, no m/r/g.
Resp: remains CTAB, no rales, wheezes, or rhonchi.
Abd: +BS, soft, NT, ND
Skin: Deferred
Neuro: remains CN 2-12 intact, paraplegic
Psych: Normal mood and affect.
02/01/25 00:45 Blood/Venous Blood Culture - Final
No Growth - Final Report
01/31/25 19:52 Blood/Venous Blood Culture - Final
No Growth - Final Report
01/31/25 20:22 Blood/Venous Blood Culture - Final
No Growth - Final Report
01/31/25 21:11 Hip - Right Wound Culture - Final
Stenotrophomonas maltophilia
Acinetobacter lwoffii
Enterococcus faecalis
01/31/25 21:11 Hip - Right Gram Stain - Final
02/01/25 00:45 Urine Urine Culture - Final
NO GROWTH
CT RLE: There is an air-filled tract in the lateral soft tissues of the right hip which extends to the proximal right femur. There is a small fluid collection in the soft tissues, versus phlegmon. There are additional small pockets of air in the
lateral and edematous soft tissues. There is a fluid collection in the deformed hip region somewhat increased from prior study. While osteomyelitis is suspected it cannot be confirmed on CT.
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
-now with malodorous drainage with surrounding erythema
-cont IV Vanco/Zosyn
-final WCx polymicrobial as above
-CT R hip above
-ID/surg/ortho saw in c/s
-At this point in time the plan is for prolonged IV antibiotics and outpatient follow-up with orthopedics at [facility]
-ID to make final abx recs today
DM2:
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
-SSI/accuchecks
-a1c 5.4%
-pt attributes current a1c to weight loss
Other problems:
h/o colostomy
Essential HTN: cont Norvasc
h/o B/L LE DVT: cont Eliquis
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
Neurogenic Bladder, intermittently straight caths
h/o NSVT
h/o recurrent SBO
FULL/Eliquis
Dispo: d/c 02/07/25 on IV abx
Anticipated Discharge: Within 24 hours
Subjective/Interval History
-
Date of Service: February 06, 2025
No new complaints.
Objective Data
-
Labs:
Laboratory Results
02/06/25
06:00
WBC Pending
Hgb Pending
Hct Pending
Plt Count Pending
Sodium Pending
Potassium Pending
Chloride Pending
Carbon Dioxide Pending
BUN Pending
Creatinine Pending
Glucose Pending
Calcium Pending
Vital Signs:
Vital Signs
Temp Pulse Resp BP Pulse Ox
98.3 F 63 16 101/59 99
02/06/25 07:00 02/06/25 07:00 02/06/25 07:00 02/06/25 07:00 02/06/25 07:00
I&O
02/05/25 02/06/25 02/07/25
06:59 06:59 06:59
Intake Total 1780 / 1780 1540 / 1540
Output Total 1750 / 1750 1300 / 1300
Balance 30 / 30 240 / 240
[2025-02-06] MEDS: NOVOLOG FLEXPEN-LOW RESISTANCE SC ×2 (08:02→17:13)
[2025-02-06] MEDS: SANTYL OINTMENT 1 APPLIC TOPICAL (08:03)
[2025-02-06] MEDS: PROTONIX 40 MG PO (08:03)
[2025-02-06] MEDS: ELIQUIS 5 MG PO ×2 (08:03→19:37)
[2025-02-06] MEDS: NORVASC 10 MG PO (08:03)
[2025-02-06] MEDS: LYRICA 75 MG PO ×3 (08:03→21:25)
[2025-02-06] MEDS: DAKIN'S SOLUTION 0.125% 1/4 STRENGTH 473 ML TOPICAL (08:14)
[2025-02-06 09:05] LABS: Hematocrit 31.9 % (39.0-52.0); Hemoglobin 9.9 g/dL (13.0-18.0); Mean Corp Hgb Conc. 31.0 g/dL (33.0-37.0); Mean Corpuscular Volume 80.4 fL (80.0-94.0); Platelet Count 330 10^3/uL (130-400); Red Cell Dist. Width 14.7 % (11.5-14.5)
[2025-02-06 09:25] LABS: Blood Urea Nitrogen 12 mg/dl (9-20); Calcium 9.0 mg/dl (8.4-10.2); Carbon Dioxide 27 mmol/L (22-30); Chloride 106 mmol/L (98-107); Estimated Creatinine Clearance 103 ml/min; Glucose 119 mg/dl (70-99); Potassium 4.1 mmol/L (3.5-5.1); Sodium 138 mmol/L (135-145); eGFR > 60.00
--- NOTE | 2025-02-06 09:33 | W.PN.ID1 ---
Date of Service
Date of Service: February 06, 2025
Today's Communication
Continue Zosyn. Discontinue further vancomycin. Home infusion sheet placed on paper chart.
Assessment / Plan
Right hip wound with likely osteomyelitis/septic arthritis
Leukocytosis; improved
T12 Paraplegia (since age 15)
DM2
Urinary retention, self-cath
HTN
chronic sacral decubitus
hx diverting colostomy
Parastomal hernia
Spinal fusions with rods
hx spinal abscess s/p drainage 2019, on suppressive doxycycline
anxiety/depression
GERD
small bowel obstruction
Recommendations:
CT shows extensive changes of the right hip area, with suspected osteomyelitis, suspect chronic in nature.
Patient may ultimately need debridement or other surgery to the area.
Patient previously evaluated by [facility], who declined transfer.
Blood cultures negative. Urine culture without growth. Wound culture with E. faecalis, Acinetobacter and Stenotrophomonas.
Overall malodor has decreased.
Monitor white count and temperature curve.
Local care to the multiple wounds (right hip, left ischium, sacral area.)
Continue with Zosyn through 03/07/2025. Discontinue further vancomycin.
Culture results and overall further clinical care discussed with patient. Ultimately, patient will need definitive therapy of the right hip area, but this will require evaluation at a tertiary/[facility] care center.
Will remain on Zosyn as a bridge to more definitive therapy.
Home infusion sheet placed on paper chart.
����������������������������������������������������������
Chief Complaint
-: Other (Right hip wound infection; chronic osteomyelitis)
Subjective / Review of Systems
Patient seen and examined. Reports no difficulties with his antibiotic therapy.
Review of Systems: No Fever and No Chills
Vital Signs / Physical Exam
Vital Signs
Vital Signs
Temp Pulse Resp BP Pulse Ox
98.3 F 63 16 101/59 99
02/06/25 07:00 02/06/25 07:00 02/06/25 07:00 02/06/25 07:00 02/06/25 07:00
Physical Exam
Constitutional: No Acute Distress, Comfortable, Chronically Ill and Non-toxic
Eyes: Sclera Anicteric
Pulmonary: Non Labored
Gastrointestinal: Soft, Non Tender and Non Distended
Extremities: Edema; Negative Erythema
Wound: Other (Right hip wound dressed. )
Neurological: Awake and Alert
Psychological: Calm
Objective Data
Lab Data
Lab Results
02/06/25 08:50
02/06/25 08:50
Estimated Creat Clear 103 ml/min 02/06/25 08:50
Lactic Acid Cancelled 01/31/25 23:18
Total Bilirubin 0.7 mg/dl (0.2-1.3) 02/01/25 06:01
AST 22 U/L (17-59) 02/01/25 06:01
ALT 25 U/L (0-50) 02/01/25 06:01
Alkaline Phosphatase 67 U/L (38-126) 02/01/25 06:01
Most recent labs reviewed.
Micro Results:
02/01/25 00:45 Blood Culture - Final
Blood/Venous No Growth - Final Report
01/31/25 19:52 Blood Culture - Final
Blood/Venous No Growth - Final Report
01/31/25 20:22 Blood Culture - Final
Blood/Venous No Growth - Final Report
01/31/25 21:11 Wound Culture - Final
Hip - Right Stenotrophomonas maltophilia
Acinetobacter lwoffii
Enterococcus faecalis
Gram Stain - Final
02/01/25 00:45 Urine Culture - Final
Urine NO GROWTH
Imaging:
02/01/2025 CT lower extremity: right iliac bone is deformed with chronic bone changes. No normal acetabulum present. Soft tissue inflammation surrounding the pelvis and proximal femur. There are small air collections within the edematous soft
tissue. There is a sinus tract extending from the lateral soft tissues to the proximal femur. There is a probable small fluid collection versus phlegmon in this region. Fluid in the soft tissues of the hip joint seen on previous exams has
increased. No free fluid in the visualized portions of the pelvis. Please see full dictation for additional detail.
Care Review
Plan reviewed with: Physician
Total Time Spent with Patient (in minutes): Hospitalist
[2025-02-06 11:40] LABS: Glucose - Point of Care 165 mg/dl (70-99)
[2025-02-06] MEDS: NOVOLOG FLEXPEN-LOW RESISTANCE 1 UNITS SC (13:02)
[2025-02-06 15:00] VITALS: BP 126/72
[2025-02-06 17:01] LABS: Glucose - Point of Care 148 mg/dl (70-99)
[2025-02-06 21:48] LABS: Glucose - Point of Care 208 mg/dl (70-99)
[2025-02-06 23:05] VITALS: BP 136/65
[2025-02-07] MEDS: ZOSYN 100 IV ×4 (02:18→20:21)
[2025-02-07] MEDS: ATIVAN 1 MG PO (02:43)
[2025-02-07] MEDS: DILAUDID 0.5 MG IV ×6 (02:50→21:58)
[2025-02-07 03:11] LABS: Hematocrit 30.8 % (39.0-52.0); Hemoglobin 9.7 g/dL (13.0-18.0); Mean Corp Hgb Conc. 31.5 g/dL (33.0-37.0); Mean Corpuscular Volume 80.8 fL (80.0-94.0); Platelet Count 335 10^3/uL (130-400); Red Cell Dist. Width 14.9 % (11.5-14.5)
[2025-02-07 03:32] LABS: Blood Urea Nitrogen 12 mg/dl (9-20); Calcium 8.7 mg/dl (8.4-10.2); Carbon Dioxide 27 mmol/L (22-30); Chloride 106 mmol/L (98-107); Estimated Creatinine Clearance 92 ml/min; Glucose 143 mg/dl (70-99); Potassium 4.1 mmol/L (3.5-5.1); Sodium 138 mmol/L (135-145); eGFR > 60.00
[2025-02-07 05:48] VITALS: BMI 28.0
[2025-02-07 06:59] VITALS: BP 125/65
[2025-02-07 07:06] LABS: Glucose - Point of Care 99 mg/dl (70-99)
--- NOTE | 2025-02-07 07:43 | VATNOTE ---
Notified by [employer] food shift lead RN that purple lumen of PICC line unable to be flushed. Upon assessment, purple lumen extremely hard to flush and without blood return. White lumen flushes easily and has a brisk blood return. PMD notified, recommend CathFlo.
Awaiting orders.
[2025-02-07] MEDS: ELIQUIS 5 MG PO ×2 (08:13→20:21)
[2025-02-07] MEDS: NORVASC 10 MG PO (08:13)
[2025-02-07] MEDS: LYRICA 75 MG PO ×3 (08:13→21:25)
[2025-02-07] MEDS: PROTONIX 40 MG PO (08:13)
[2025-02-07] MEDS: SANTYL OINTMENT 1 APPLIC TOPICAL (08:14)
[2025-02-07] MEDS: NOVOLOG FLEXPEN-LOW RESISTANCE SC (08:15)
[2025-02-07] MEDS: DAKIN'S SOLUTION 0.125% 1/4 STRENGTH 473 ML TOPICAL (08:16)
--- NOTE | 2025-02-07 10:32 | W.PN.ID1 ---
Date of Service
Date of Service: February 07, 2025
Today's Communication
Continue antibiotics.
Assessment / Plan
Right hip wound with likely osteomyelitis/septic arthritis
Leukocytosis; improved
T12 Paraplegia (since age 15)
DM2
Urinary retention, self-cath
HTN
chronic sacral decubitus
hx diverting colostomy
Parastomal hernia
Spinal fusions with rods
hx spinal abscess s/p drainage 2019, on suppressive doxycycline
anxiety/depression
GERD
small bowel obstruction
Recommendations:
CT shows extensive changes of the right hip area, with suspected osteomyelitis, suspect chronic in nature.
Patient will ultimately need debridement or other surgery to the area.
Patient previously evaluated by [facility], who declined transfer.
Blood cultures negative. Urine culture without growth. Wound culture with E. faecalis, Acinetobacter and Stenotrophomonas.
Overall malodor resolved.
Monitor white count and temperature curve.
Local care to the multiple wounds (right hip, left ischium, sacral area.)
--> Continue with Zosyn through 03/07/2025. Weekly labs to include CBC, BMP
Culture results and overall further clinical care discussed with patient. Ultimately, patient will need definitive therapy of the right hip area, but this will require evaluation at a tertiary/[facility] care center.
Will remain on Zosyn as a bridge to more definitive therapy.
Home infusion sheet placed on paper chart.
����������������������������������������������������������
Chief Complaint
-: Other (Right hip wound infection; chronic osteomyelitis)
Subjective / Review of Systems
Review of Systems: No Fever and No Chills
Vital Signs / Physical Exam
Vital Signs
Vital Signs
Temp Pulse Resp BP Pulse Ox
98.3 F 66 16 125/65 100
02/07/25 06:59 02/07/25 08:13 02/07/25 06:59 02/07/25 08:13 02/07/25 06:59
Physical Exam
Constitutional: No Acute Distress, Comfortable and Non-toxic
Eyes: Sclera Anicteric
Pulmonary: Non Labored
Gastrointestinal: Soft, Non Tender and Non Distended
Extremities: Edema; Negative Erythema
Wound: Other (Right hip wound dressed. )
Neurological: Awake and Alert
Psychological: Calm
Lines: PICC (RUE)
Objective Data
Lab Data
Lab Results
02/07/25 03:00
02/07/25 03:00
Estimated Creat Clear 92 ml/min 02/07/25 03:00
Lactic Acid Cancelled 01/31/25 23:18
Total Bilirubin 0.7 mg/dl (0.2-1.3) 02/01/25 06:01
AST 22 U/L (17-59) 02/01/25 06:01
ALT 25 U/L (0-50) 02/01/25 06:01
Alkaline Phosphatase 67 U/L (38-126) 02/01/25 06:01
Most recent labs reviewed.
Micro Results:
02/01/25 00:45 Blood Culture - Final
Blood/Venous No Growth - Final Report
01/31/25 19:52 Blood Culture - Final
Blood/Venous No Growth - Final Report
01/31/25 20:22 Blood Culture - Final
Blood/Venous No Growth - Final Report
01/31/25 21:11 Wound Culture - Final
Hip - Right Stenotrophomonas maltophilia
Acinetobacter lwoffii
Enterococcus faecalis
Gram Stain - Final
02/01/25 00:45 Urine Culture - Final
Urine NO GROWTH
Imaging:
02/01/2025 CT lower extremity: right iliac bone is deformed with chronic bone changes. No normal acetabulum present. Soft tissue inflammation surrounding the pelvis and proximal femur. There are small air collections within the edematous soft
tissue. There is a sinus tract extending from the lateral soft tissues to the proximal femur. There is a probable small fluid collection versus phlegmon in this region. Fluid in the soft tissues of the hip joint seen on previous exams has
increased. No free fluid in the visualized portions of the pelvis. Please see full dictation for additional detail.
Care Review
Plan reviewed with: Physician (Hospitalist)
--- NOTE | 2025-02-07 12:01 | W.PN.HOSP.TC ---
Today's Communication/Plan
-
IV abx
await IV abx arrangements at home
CM aware
Ortho outpatient eval
PCP within 1 week
f/u cbc and cmp in 1 week
Assessment / Plan
Assessment / Plan
Constitutional: No Acute Distress, Comfortable and Non-toxic
Eyes: Sclera Anicteric
Pulmonary: Non Labored
Gastrointestinal: Soft, Non Tender and Non Distended
Extremities: Edema; Negative Erythema
Wound: Other (Right hip wound dressed. )
Neurological: Awake and Alert
Psychological: Calm
Lines: PICC (RUE)
02/01/25 00:45 Blood/Venous Blood Culture - Final
No Growth - Final Report
01/31/25 19:52 Blood/Venous Blood Culture - Final
No Growth - Final Report
01/31/25 20:22 Blood/Venous Blood Culture - Final
No Growth - Final Report
01/31/25 21:11 Hip - Right Wound Culture - Final
Stenotrophomonas maltophilia
Acinetobacter lwoffii
Enterococcus faecalis
01/31/25 21:11 Hip - Right Gram Stain - Final
02/01/25 00:45 Urine Urine Culture - Final
NO GROWTH
CT RLE: There is an air-filled tract in the lateral soft tissues of the right hip which extends to the proximal right femur. There is a small fluid collection in the soft tissues, versus phlegmon. There are additional small pockets of air in the
lateral and edematous soft tissues. There is a fluid collection in the deformed hip region somewhat increased from prior study. While osteomyelitis is suspected it cannot be confirmed on CT.
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
-now with malodorous drainage with surrounding erythema
-cont IV Vanco/Zosyn
-final WCx polymicrobial as above
-CT R hip above
-ID/surg/ortho saw in c/s
-At this point in time the plan is for prolonged IV antibiotics and outpatient follow-up with orthopedics at [facility] - Engaged with Ortho for contacts that were made
-Continue with [facility] through 03/07/2025. Weekly labs to include CBC, BMP
DM2:
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
-SSI/accuchecks
-a1c 5.4%
-pt attributes current a1c to weight loss
Other problems:
h/o colostomy
Essential HTN: cont Norvasc
h/o B/L LE DVT: cont Eliquis
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
Neurogenic Bladder, intermittently straight caths
h/o NSVT
h/o recurrent SBO
FULL/Eliquis
Dispo:awaiting IV abx for DC, CM aware
More than 30 minutes spent in discharge including
Final examination of the patient
Summarizing hospital stay
Instructions for continuing care to all relevant caregivers
Preparation of discharge records, prescriptions, and referral forms
Total time spent (in minutes): 36
Anticipated Discharge: Today
Subjective/Interval History
-
Date of Service: February 07, 2025
No acute events overnight
Objective Data
-
Labs:
Laboratory Results
02/07/25
03:00
WBC 8.1
Hgb 9.7 L
Hct 30.8 L
Plt Count 335
Sodium 138
Potassium 4.1
Chloride 106
Carbon Dioxide 27
BUN 12
Creatinine 0.9
Glucose 143 H
Calcium 8.7
Vital Signs:
Vital Signs
Temp Pulse Resp BP Pulse Ox
98.3 F 66 16 125/65 100
02/07/25 06:59 02/07/25 08:13 02/07/25 06:59 02/07/25 08:13 02/07/25 06:59
I&O
02/06/25 02/07/25 02/08/25
06:59 06:59 06:59
Intake Total 1540 / 1540 860 / 860
Output Total 1300 / 1300 800 / 800
Balance 240 / 240 60 / 60
Review of Systems
-
History Source: Patient
All other systems: Not reviewed unless documented
Data Reviewed
-
Labs: Labs Reviewed by me
[2025-02-07] MEDS: CATHFLO/ACTIVASE 2 MG INTRACATH (12:11)
--- NOTE | 2025-02-07 12:29 | CM ---
CM following re: discharge planning.
Reviewed pt's chart, met with pt.
Per MD pt is medically stable to be discharged today. Per ID, pt will need IV antibiotic treatment till 03/07/25. pt is aware and pt stated she is current with [facility] and has had I V antibiotic treatment in the past.
CM initiated home infusion therapy. A referral to [facility] IV infusion made, pt's clinical with a script faxed to [facility] at [phone]. Awaiting for determination
[facility] liaison following.
D/C plan: home with [facility] IV infusion therapy, [facility] and family/friends support.
CM will follow to assist pt with a safe discharge plan.
--- NOTE | 2025-02-07 13:07 | VATNOTE ---
CathFlo instilled in purple lumen as per order and protocol. Both lumens of PICC now flush easily and have brisk blood return. EMY Hutton updated.
[2025-02-07 13:13] LABS: Glucose - Point of Care 169 mg/dl (70-99)
[2025-02-07] MEDS: NOVOLOG FLEXPEN-LOW RESISTANCE 1 UNITS SC ×2 (13:16→17:53)
--- NOTE | 2025-02-07 15:03 | WOUNDNOTE ---
WON RN NOTE: Followed up today regarding wounds, patient able to turn self. Remains on [facility] air bed, turns and repositioned self. Patient reports he removed protective foams on heels so that he can assess them daily, remain blanchable pink.
R hip and L ischium floor cleaner and less odor, still with significant slough. Recommend Santyl with moist Dakin's gauze to dry dressing daily. Patient confirmed he has loads of Santyl at home because plastic surgeon Dr. Beltran wanted him to use for
wound care. Patient able to do on days in btw. visiting nurses. He also has Vashe at home for wound cleaning. Teaching done with patient on the above and will update discharge instructions. R knee ulcer nearly healed. R lateral ankle and sacrum
blanchable red. All dressings changed.
[2025-02-07 15:40] VITALS: BP 121/66
[2025-02-07 17:22] LABS: Glucose - Point of Care 180 mg/dl (70-99)
[2025-02-07 20:57] LABS: Glucose - Point of Care 220 mg/dl (70-99)
[2025-02-07 23:08] VITALS: BP 133/67
[2025-02-08] MEDS: DILAUDID 0.5 MG IV (02:13)
[2025-02-08] MEDS: ZOSYN 100 IV ×3 (02:14→13:16)
[2025-02-08 04:54] LABS: Hematocrit 30.5 % (39.0-52.0); Hemoglobin 9.4 g/dL (13.0-18.0); Mean Corp Hgb Conc. 30.8 g/dL (33.0-37.0); Mean Corpuscular Volume 80.5 fL (80.0-94.0); Platelet Count 362 10^3/uL (130-400); Red Cell Dist. Width 15.1 % (11.5-14.5)
[2025-02-08 05:21] LABS: Blood Urea Nitrogen 11 mg/dl (9-20); Calcium 8.5 mg/dl (8.4-10.2); Carbon Dioxide 26 mmol/L (22-30); Chloride 105 mmol/L (98-107); Estimated Creatinine Clearance 103 ml/min; Glucose 177 mg/dl (70-99); Potassium 4.1 mmol/L (3.5-5.1); Sodium 138 mmol/L (135-145); eGFR > 60.00
[2025-02-08 07:42] VITALS: BP 123/66
[2025-02-08 08:08] LABS: Glucose - Point of Care 104 mg/dl (70-99)
[2025-02-08] MEDS: NORVASC 10 MG PO (08:33)
[2025-02-08] MEDS: ELIQUIS 5 MG PO (08:33)
[2025-02-08] MEDS: PROTONIX 40 MG PO (08:33)
[2025-02-08] MEDS: LYRICA 75 MG PO (08:33)
[2025-02-08] MEDS: NOVOLOG FLEXPEN-LOW RESISTANCE SC ×2 (08:33→13:29)
[2025-02-08] MEDS: SANTYL OINTMENT 1 APPLIC TOPICAL (08:34)
[2025-02-08] MEDS: DAKIN'S SOLUTION 0.125% 1/4 STRENGTH 473 ML TOPICAL (08:37)
--- NOTE | 2025-02-08 10:56 | PN.CDI ---
CDI
- -
CDI:
Physician Documentation Request
Admit Date: 01/31/25 22:09
Dear Doctor,
Please review the following and provide your response in the progress notes.
Clinical Indicators:
Patient admitted with recurrent infected chronic R hip ulcer with chronic R hip OM.
02/01 WOC RN skin/wound not 'Left Ischium stage 3 vs unstageable PI'
Treatment: Alginate, Silicone Border Foam Dressing
Physician documentation of the type and location of wounds is required for compliant documentation. Based on the above clinical findings and your assessment, please provide the following in your progress note:
1. Location of the ulcer/wound, including laterality.
2. Type (etiology) of ulcer/wound:
- Pressure (decubitus) ulcer
- Other
- Unable to determine
3. If a pressure ulcer, please also include the stage* of the ulcer:
- Stage 1 - Skin intact, non-blanchable redness
- Stage 2 - Partial thickness loss of dermis, includes intact or open blister
- Stage 3 - Full thickness tissue not including bone, tendon or muscle
- Stage 4 - Full thickness tissue loss, including exposed bone, tendon or muscle
- Unstageable - Full thickness loss in which the base of the ulcer is covered by slough (yellow, solis, osborne, green or brown) and/or eschar (solis, brown or black) in the wound bed.
- Unable to determine
Use of terms such as suspected, likely, concern for, or probable (associated with a specific diagnosis that is being evaluated, monitored, or treated as if it exists) are acceptable and can be coded in the inpatient setting, when documented at the
time of discharge.
Thank you,
Gayathri Cardoza
CDI Specialist
Please use your independent medical judgment in providing your response.
*Source: National Pressure Ulcer Advisory Panel (NPUAP)
--- NOTE | 2025-02-08 11:39 | W.PN.HOSP.TC ---
Addendum entered and electronically signed by Steve Segundo MD 02/11/25 15:53:
Left Ischium stage 3*
Addendum entered and electronically signed by Steve Segundo MD 02/11/25 15:52:
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
Addendum entered and electronically signed by Steve Segundo MD 02/08/25 17:09:
[id number]
Original Note:
Today's Communication/Plan
-
IV abx outpatient
CM aware
Ortho outpatient eval
PCP within 1 week
f/u cbc and cmp in 1 week
Wound care
Assessment / Plan
Assessment / Plan
Constitutional: No Acute Distress, Comfortable and Non-toxic
Eyes: Sclera Anicteric
Pulmonary: Non Labored
Gastrointestinal: Soft, Non Tender and Non Distended
Extremities: Edema; Negative Erythema
Wound: Other (Right hip wound dressed. )
Neurological: Awake and Alert
Psychological: Calm
Lines: PICC (RUE)
02/01/25 00:45 Blood/Venous Blood Culture - Final
No Growth - Final Report
01/31/25 19:52 Blood/Venous Blood Culture - Final
No Growth - Final Report
01/31/25 20:22 Blood/Venous Blood Culture - Final
No Growth - Final Report
01/31/25 21:11 Hip - Right Wound Culture - Final
Stenotrophomonas maltophilia
Acinetobacter lwoffii
Enterococcus faecalis
01/31/25 21:11 Hip - Right Gram Stain - Final
02/01/25 00:45 Urine Urine Culture - Final
NO GROWTH
CT RLE: There is an air-filled tract in the lateral soft tissues of the right hip which extends to the proximal right femur. There is a small fluid collection in the soft tissues, versus phlegmon. There are additional small pockets of air in the
lateral and edematous soft tissues. There is a fluid collection in the deformed hip region somewhat increased from prior study. While osteomyelitis is suspected it cannot be confirmed on CT.
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
-now with malodorous drainage with surrounding erythema
-cont IV Vanco/Zosyn
-final WCx polymicrobial as above
-CT R hip above
-ID/surg/ortho saw in c/s
-At this point in time the plan is for prolonged IV antibiotics and outpatient follow-up with orthopedics at [facility] - Engaged with Ortho for contacts that were made - F/u with Dr. Severino outpatient
-Continue with Zosyn through 03/07/2025. Weekly labs to include CBC, BMP
DM2:
-Not on any medications for diabetes [employer]
-SSI/accuchecks
-a1c 5.4%
-pt attributes current a1c to weight loss
Other problems:
h/o colostomy
Essential HTN: cont Norvasc; Hold ARB/HCTZ
h/o B/L LE DVT: cont Eliquis
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
Neurogenic Bladder, intermittently straight caths
h/o NSVT
h/o recurrent SBO
FULL/Eliquis
Dispo:awaiting IV abx for DC, CM aware
More than 30 minutes spent in discharge including
Final examination of the patient
Summarizing hospital stay
Instructions for continuing care to all relevant caregivers
Preparation of discharge records, prescriptions, and referral forms
Total time spent (in minutes): 36
Anticipated Discharge: Today
Subjective/Interval History
-
Date of Service: February 08, 2025
No acute events overnight
Objective Data
-
Labs:
Laboratory Results
02/08/25
04:37
WBC 6.2
Hgb 9.4 L
Hct 30.5 L
Plt Count 362
Sodium 138
Potassium 4.1
Chloride 105
Carbon Dioxide 26
BUN 11
Creatinine 0.8
Glucose 177 H
Calcium 8.5
Vital Signs:
Vital Signs
Temp Pulse Resp BP Pulse Ox
98.5 F 61 18 123/66 100
02/08/25 07:42 02/08/25 08:33 02/08/25 07:42 02/08/25 08:33 02/08/25 07:42
I&O
02/07/25 02/08/25 02/09/25
06:59 06:59 06:59
Intake Total 860 / 860 692 / 692
Output Total 800 / 800 600 / 600
Balance 60 / 60 92 / 92
Review of Systems
-
History Source: Patient
All other systems: Not reviewed unless documented
Data Reviewed
-
Diagnostic Radiology: Report Reviewed by me
CT Scan: Report Reviewed by me
Labs: Labs Reviewed by me
--- NOTE | 2025-02-08 11:43 | W.DS.TRANS ---
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
-
Discharge Instructions:
Sleep Apnea Risk Low
Discharge Diagnosis/Procedures R septic hip
Diet Low Cholesterol,Low Fat
Blood Work cbc and cmp in 1 week with pcp
Others Tests as per Orthopedics outpatient
Instructions:
Stand-Alone Forms:
Changes to Home Medications: Yes
Discharge Medications:
DC Medications w/original date entered in [employer]
lorazepam 1 mg tablet (Ativan) 1 mg PO BIDPRN PRN anxiety 01/15/22
apixaban 5 mg tablet (Eliquis) 5 mg PO BID Blood clot prevention/tx 05/12/23
losartan 100 mg-hydrochlorothiazide 25 mg tablet 1 tab PO DAILY Blood Pressure 05/12/23
Held on 02/08/25. Instructions: Resume on 03/09/25. Hold until cleared by PCP
therapeutic multivitamin 1 tab PO DAILY Supplement 05/12/23
pantoprazole 40 mg tablet,delayed release (Protonix) 40 mg PO DAILY Gastrointestinal Issue 11/25/24
pregabalin 75 mg capsule (Lyrica) 75 mg PO TID Neurological Condition 11/25/24
amlodipine 10 mg tablet (Norvasc) 10 mg PO DAILY 02/01/25
acetaminophen 325 mg tablet 650 mg (2 x 325 mg) PO Q6HPRN PRN mild pain/ fever>100.5F #90 tabs 02/08/25
collagenase clostridium histo. 250 unit/gram topical ointment (Santyl) 1 applic topical DAILY #90 grams 02/08/25
oxybutynin chloride 5 mg tablet 5 mg PO BIDPRN PRN bladder spasms #60 tabs 02/08/25
oxycodone 5 mg tablet 5 mg PO Q8H PRN severe pain #10 tabs 02/08/25
piperacillin-tazobactam 4.5 gram/100 mL dextrose(iso-osm) IV piggyback (Zosyn) 4.5 g (112.5 mL) IV Q6H #0 mL 02/08/25
Home Medication Changes
acetaminophen 325 mg tablet 650 mg (2 x 325 mg) PO Q6HPRN PRN mild pain/ fever>100.5F #90 tabs 02/08/25
collagenase clostridium histo. 250 unit/gram topical ointment (Santyl) 1 applic topical DAILY #90 grams 02/08/25
oxybutynin chloride 5 mg tablet 5 mg PO BIDPRN PRN bladder spasms #60 tabs 02/08/25
oxycodone 5 mg tablet 5 mg PO Q8H PRN severe pain #10 tabs 02/08/25
piperacillin-tazobactam 4.5 gram/100 mL dextrose(iso-osm) IV piggyback (Zosyn) 4.5 g (112.5 mL) IV Q6H #0 mL 02/08/25
Pending Results: No
--- NOTE | 2025-02-08 11:45 | CM ---
CM following re: discharge planning.
Reviewed pt's chart, met with pt.
Discharge order noted. Pt is aware, expressed his agreement with discharge and his stated his family will transport home. IMM [id number], placed on the chart, pt has a copy. Pt stated he already spoke to [facility] liaison.
CM spoke to [facility] infusion therapy liaison Debora and she confirmed that pt is accepted for home infusion therapy, she will meet with the pt around 1:00 p.m. today. Per liaison, pt will need to get second dose of IV antibiotic here and their
third dose pt will have at home. Per Liaison, medications will be delivered to pt's home this afternoon when pt is home.
[facility] will resume [facility] services upon the discharge.
Please fax discharge instructions to [facility] at [phone].
D/C plan: home with [facility] infusion therapy, resumptions of [facility] and family support. Family to transport.
[2025-02-08 13:27] LABS: Glucose - Point of Care 117 mg/dl (70-99)
== END 2025-02-08 14:08 | disposition home health service (06) | DRG 871 ==
LOC: 2 NORTH 22:09
PROVIDERS: Emergency Medicine; Internal Medicine; ADMITTING PHYSICIAN Internal Medicine; ATTENDING PHYSICIAN Internal Medicine; CONSULT PHYSICIAN Internal Medicine Infectious Disease; CONSULT PHYSICIAN Orthopaedic Surgery; EMERGENCY PHYSICIAN Emergency Medicine; FAMILY PHYSICIAN Internal Medicine; OTHER PHYSICIAN Surgery
DX: A41.9 Sepsis, unspecified organism (principal); L89.214 Pressure ulcer of right hip, stage 4; L89.223 Pressure ulcer of left hip, stage 3; G82.20 Paraplegia, unspecified; M46.22 Osteomyelitis of vertebra, cervical region; F41.9 Anxiety disorder, unspecified; F32.A Depression, unspecified; E11.69 Type 2 diabetes mellitus with other specified complication; N31.9 Neuromuscular dysfunction of bladder, unspecified; I10 Essential (primary) hypertension; F17.290 Nicotine dependence, other tobacco product, uncomplicated; Z88.2 Allergy status to sulfonamides; Z79.01 Long term (current) use of anticoagulants; Z93.3 Colostomy status; Z99.3 Dependence on wheelchair; Z79.2 Long term (current) use of antibiotics; D64.9 Anemia, unspecified; K21.9 Gastro-esophageal reflux disease without esophagitis; L89.159 Pressure ulcer of sacral region, unspecified stage; Z79.899 Other long term (current) drug therapy; Z83.3 Family history of diabetes mellitus; Z86.61 Personal history of infections of the central nervous system; Z86.718 Personal history of other venous thrombosis and embolism; Z98.1 Arthrodesis status
CPT/HCPCS: 71045; 73701; 80048; 80053; 80202; 81003; 81015; 82962; 83036; 83605; 85025; 85027; 87040; 87070; 87077; 87086; 87184; 87186; 87205; J2997; Q9967

== ENCOUNTER 2025-05-21 15:29 | Emergency (ER) | payer OTHER, SELFPAY ==
[2025-05-21 15:32] VITALS: BP 130/83
--- NOTE | 2025-05-21 16:11 | ED.GENMED ---
History of Present Illness
General
Chief Complaint: Skin Surface Trauma
Source: patient
Exam Limitations: none
Time Seen by Provider: 05/21/25 15:38
History of Present Illness
History of Present Illness:
60yoM with a history of spinal cord injury with paraplegia, atrial fibrillation on Eliquis, hypertension, hyperlipidemia presenting with his aunt for evaluation of a left hand laceration. Patient was cutting something with an X-[employer]o knife when he
accidentally cut himself in the left thenar eminence. He was unable to control the bleeding at home so came to the ED. No paresthesias. Unknown last Tdap. He is [id number].
Past History
Past History
ED Past Medical History: HTN, NIDDM, Other (T12 vertebral compression fracture at age 15 with resultant paraplegia), Other (Stasis ulcers, SBO, Anemia, gastritis,) and Other (Epididymitis)
ED Past Surgical History: Bowel resection (Colostomy) and Orthopedic (Spinal fusion)
Social History
Tobacco: Non-smoker
Alcohol: None
Personal:
Living: alone
Employment: Retired
Family History
Family History: Other (Noncontributory)
Phy Exam
General Physical Exam
General Presentation: well appearing and no apparent distress
General Skin: warm and dry
General Habitus: normal
General Mental: alert
ENT Exam
ENT Exam: normocephalic
Neurological Exam
Neurological Exam: alert
Shellie Coma Scale
Eye Opening: Spontaneous
Verbal Response: Oriented
Motor Response: Obeys Commands
GCS Total Score: 15
Skin Exam
Skin Exam: warm/dry and other (5cm linear laceration noted to L thenar eminence with minimal bleeding. ROM of thumb IP and MCP joint intact. No bony tenderness. 2+ radial pulse and sensation intact. )
Psychiatric Exam
Psychiatric Exam: normal mood/affect
Course
Orders/Labs/Results
Orders:
Orders
05/21/25 16:12
Tetanus/Diphth/Acelpertussis [Adacel] 0.5 ml IM .ONCE ONE
Vital Signs
Initial and Last Documented VS:
Initial Vital Signs
Temp Pulse Resp BP Pulse Ox
98.6 F 114 16 130/83 97
05/21/25 15:32 05/21/25 15:32 05/21/25 15:32 05/21/25 15:32 05/21/25 15:32
Last Documented Vital Signs
Temp Pulse Resp BP Pulse Ox
98.6 F 114 16 130/83 97
05/21/25 15:32 05/21/25 15:32 05/21/25 15:32 05/21/25 15:32 05/21/25 16:12
Procedures
Laceration Closure
Left Palmar Hand:
Status of Wound: clean
Size of Wound in cm: 5
Description of Wound Edges: sharp
Preparation: cleaned with saline
Anesthesia: 1% Lidocaine with epi
Revision/Debridement: routine- no revision
Wound exploration: explored to base- no FB
Skin Closure Material: 4-0 nylon
Number of sutures: 7
MDM/Problems Addressed
Differential Diagnosis Includes:
60yoM here with a L hand laceration. 5cm laceration noted to the thenar eminence. No evidence of tendon or neurovascular injury. No bony tenderness. Wound cleaned and repaired as above. Tdap updated. Home wound care discussed. Patient advised to
have sutures removed in 10-14 days and return to the ER with any signs of infection.
*Pulse Oximetry
SaO2: 97
Patient hypoxic: no
*Critical Care Note
Total Time (30-74mins, 75-104mins- exclusive of procedures): Not Applicable
ED Attending Note
-
Portions of this chart may have been created with voice recognition software.� Occasional wrong word or��sound alike� substitutions may have occurred due to the inherent limitations of voice recognition software.
Discharge Plan
Departure
Patient Disposition: Home (Routine Discharge)
Date of Disposition: 05/21/25
Time of Disposition: 16:13
Patient with high blood pressure during this ER visit?: No
Discharge Problem:
Laceration of left hand
Instructions: Laceration Repair With Stitches (DC)
Prescriptions:
No Action
lorazepam [Ativan] 1 mg Tablet
1 mg PO BIDPRN PRN (Reason: anxiety)
therapeutic multivitamin Tablet
1 tab PO DAILY
losartan-hydrochlorothiazide 100-25 mg Tablet
1 tab PO DAILY
Eliquis 5 MG tablet
5 mg PO BID
pantoprazole [Protonix] 40 mg Tablet,Delayed Release (Dr/Ec)
40 mg PO DAILY
pregabalin [Lyrica] 75 mg Capsule
75 mg PO TID
amlodipine [Norvasc] 10 mg Tablet
10 mg PO DAILY
Zosyn in dextrose (iso-osm) 4.5 gram/100 mL Piggyback
4.5 g IV Q6H Qty: 0 0RF
acetaminophen 325 mg Tablet
650 mg PO Q6HPRN PRN (Reason: mild pain/ fever>100.5F) Qty: 90 0RF
Santyl 250 unit/gram Ointment
1 applic topical DAILY Qty: 90 0RF
oxybutynin chloride 5 mg Tablet
5 mg PO BIDPRN PRN (Reason: bladder spasms) Qty: 60 0RF
oxycodone 5 mg tablet
5 mg PO Q8H PRN (Reason: severe pain) Qty: 10 0RF
Referrals:
UNKNOWN - PT DOES,NOT KNOW [Family Provider]
Activity Restrictions/Additional Instructions:
Keep wound clean and dry. Change dressings at least once daily.
Sutures will need to be removed in 10 to 14 days. Return to the ER with any signs of infection or uncontrolled bleeding.
Interventions
Interventions:
*Risk Screen - Suicide Last Done: 05/21/25 15:32
*General Assessment Last Done: 05/21/25 15:32
*Neglect/Abuse Screening Last Done: 05/21/25 15:32
*ED- Fall Risk Assessment Last Done: 05/21/25 15:32
*ED COVID-19 Vaccine History Last Done: 05/21/25 15:32
*ED Influenza Vaccine History Last Done: 05/21/25 15:32
*Nursing Disposition Last Done: 05/21/25 16:40
ED-Skin Assessment Last Done: 05/21/25 15:58
Discharge Date and Time
Discharge Date/Time: 05/21/25 16:41
Print Language: CHINESE
== END 2025-05-21 16:41 | disposition home or self-care (01) ==
LOC: EMR 15:29
PROVIDERS: EMERGENCY PHYSICIAN Emergency Medicine
DX: S61.412A Laceration without foreign body of left hand, initial encounter (principal); W26.0XXA Contact with knife, initial encounter; I48.91 Unspecified atrial fibrillation; I10 Essential (primary) hypertension; E78.5 Hyperlipidemia, unspecified; G82.20 Paraplegia, unspecified; S24.104S Unspecified injury at T11-T12 level of thoracic spinal cord, sequela; Z79.01 Long term (current) use of anticoagulants
CPT/HCPCS: 99282; 12002; 90715

== ENCOUNTER 2025-06-13 07:58 | Inpatient (IN) | payer OTHER, SELFPAY ==
[2025-06-10 19:40] VITALS: BP 118/66
[2025-06-10 19:47] VITALS: BMI 25.3
--- NOTE | 2025-06-10 21:20 | ED.GENMED ---
History of Present Illness
General
Chief Complaint: Generalized Pain
Source: patient, records, family and physician (MANAGER ADULT from hospice team referred patient to the ER)
Exam Limitations: none
Time Seen by Provider: 06/10/25 20:41
Nursing documentation reviewed up to this point in time: agreed with
History of Present Illness
History of Present Illness:
60-year-old male with history of paraplegia, hypertension, hyperlipidemia, atrial fibrillation, severe chronic decubitus wounds with diverting ostomy who presents to the emergency department sent by [facility] on hospice team for inpatient hospice. He
has been on hospice care for 3 to 4 weeks for his end-stage chronically infected wound in the setting of paraplegia. Sister and mother have been helping to care for him but they have had difficulty managing his needs at home and ultimately hospice
team sentiment for inpatient hospice care. Patient has chronic pain he complains mainly of shoulder pains to me. He is was receiving high dose pain medications and lorazepam for anxiety.
Past History
Past History
ED Past Medical History: HTN, NIDDM, Other (T12 vertebral compression fracture at age 15 with resultant paraplegia), Other (Stasis ulcers, SBO, Anemia, gastritis,) and Other (Epididymitis)
ED Past Surgical History: Bowel resection (Colostomy) and Orthopedic (Spinal fusion)
Social History
Tobacco: Non-smoker
Alcohol: None
Personal:
Living: alone
Employment: Retired
Family History
Family History: Other (Noncontributory)
Review of Systems
Review of Systems
All Other Systems: ROS reviewed and negative except as documented in HPI and ROS
Musculoskeletal: Reports joint pain and muscle pain
Phy Exam
Physical Exam
Physical Exam:
General: Awake, alert, confused
Head: Normocephalic, atraumatic
Eyes: Conjunctiva normal
Throat: Airway intact, handling secretions
Neck: Trachea midline, moving neck freely
Lungs: Breathing comfortably no evidence of respiratory distress
Heart: Tachycardia
Abd: Ostomy bag noted
Neuro: Paraplegia
Skin: Severe wounds on the sacrum and hip
Scores
Heart Failure Risk
Heart Failure Risk Score: Not Applicable
Heart Score for Chest Pain Patients
STEMI patient?: Not applicable
Withdrawal Assessment of Alcohol
Withdrawal Assessment Completed?: Not applicable
Course
Orders/Labs/Results
Orders:
Orders
06/10/25 19:37
Electrocardiogram (*1) Urgent
Reason for Study: Hypertension, Benign
EKG- Treatment ONCE
06/10/25 19:37
06/10/25 19:37
Vital Signs
Initial and Last Documented VS:
Initial Vital Signs
Temp Pulse Resp BP Pulse Ox
36.8 C 113 24 118/66 98
06/10/25 19:40 06/10/25 19:40 06/10/25 19:40 06/10/25 19:40 06/10/25 19:40
Last Documented Vital Signs
Temp Pulse Resp BP Pulse Ox
36.8 C 112 14 118/66 98
06/10/25 19:40 06/10/25 20:45 06/10/25 20:45 06/10/25 19:40 06/10/25 21:21
MDM/Problems Addressed
Differential Diagnosis Includes:
Chronic pains
MDM/Problems Addressed:
60-year-old male with history as noted was sent by [facility]ice team for inpatient hospice care. He has severe chronically infected wounds in the setting of paraplegia and has been on hospice for 3 to 4 weeks but family cannot manage his
needs at home. Vitals and exam as noted. Discussed with hospice team to follow. Discussed with hospitalist to admit for inpatient hospice care.
Patient becoming agitated; he was given some pain medication, lorazepam as well as Haldol to help with agitation and prevent fall from bed.
Chronic conditions affecting care:
Paraplegia, chronic wounds
*Pulse Oximetry
SaO2: 98
Oxygen Mode of Delivery: Room air
Patient hypoxic: no (96%)
*EKG
Interpreted by ED Provider?: Yes
Heart Rate: 112
Rate: tachycardiac
Rhythm: sinus
[place]: normal axis
Interval: long QT
QRS Pattern: normal QRS
Ischemia: non-specific ST changes
*Critical Care Note
Total Time (30-74mins, 75-104mins- exclusive of procedures): Not Applicable
Data Reviewed
Review of Other/Old Records Reveals: Labs and Records
Source: patient and records
Patient Management
Discussion with other providers: Hospitalist (Discussed with hospitalist) and Ink Blender (Discussed with hospice team)
Escalation/DeEscalation of care consider admission/obs:
Admission for inpatient hospice
ED Attending Note
-
Portions of this chart may have been created with voice recognition software.� Occasional wrong word or��sound alike� substitutions may have occurred due to the inherent limitations of voice recognition software.
Discharge Plan
Departure
Prescriptions:
No Action
lorazepam [Ativan] 1 mg Tablet
1 mg PO BIDPRN PRN (Reason: anxiety)
therapeutic multivitamin Tablet
1 tab PO DAILY
losartan-hydrochlorothiazide 100-25 mg Tablet
1 tab PO DAILY
Eliquis 5 MG tablet
5 mg PO BID
pantoprazole [Protonix] 40 mg Tablet,Delayed Release (Dr/Ec)
40 mg PO DAILY
pregabalin [Lyrica] 75 mg Capsule
75 mg PO TID
amlodipine [Norvasc] 10 mg Tablet
10 mg PO DAILY
Zosyn in dextrose (iso-osm) 4.5 gram/100 mL Piggyback
4.5 g IV Q6H Qty: 0 0RF
acetaminophen 325 mg Tablet
650 mg PO Q6HPRN PRN (Reason: mild pain/ fever>100.5F) Qty: 90 0RF
Santyl 250 unit/gram Ointment
1 applic topical DAILY Qty: 90 0RF
oxybutynin chloride 5 mg Tablet
5 mg PO BIDPRN PRN (Reason: bladder spasms) Qty: 60 0RF
oxycodone 5 mg tablet
5 mg PO Q8H PRN (Reason: severe pain) Qty: 10 0RF
Referrals:
Richie Francois MD [Family Provider, Internal Medicine]
Interventions
Interventions:
*Risk Screen - Suicide Last Done: 06/10/25 19:43
*General Assessment Last Done: 06/10/25 19:43
*Neglect/Abuse Screening Last Done: 06/10/25 19:43
*ED- Fall Risk Assessment Last Done: 06/10/25 19:43
*ED COVID-19 Vaccine History Last Done: 06/10/25 19:43
*ED Influenza Vaccine History Last Done: 06/10/25 19:43
Discharge Date and Time
Print Language: MONEGASQUE
[2025-06-10] MEDS: ATIVAN 1 MG IV ×2 (21:41→22:36)
[2025-06-10] MEDS: DILAUDID 0.5 MG IV (21:42)
[2025-06-10] MEDS: HALDOL 1 MG IV (21:42)
--- NOTE | 2025-06-10 21:55 | HPS.HSE ---
Family Physician
-
Family Physician: Richie Francois
Chief Complaint
-
decubitus ulcer
History of Present Illness
60-year-old male past medical history of chronic infection of right hip with open ulcer, diabetes, history of diverting colostomy, hypertension, history of bilateral lower extremity DVT, T12 spinal injury paraplegia wheelchair-bound at baseline,
neurogenic bladder intermittently straight caths, atrial fibrillation, NSVT, recurrent SBO, sent in by [facility] on hospice team for inpatient hospice. He has been on hospice care for 3 to 4 weeks for end-stage chronically infected wound in the setting
of paraplegia. Sister and mother have been helping to take care of him but they are having difficulty managing his needs at home and ultimately hospice team's recommend inpatient hospice care. Patient has chronic pain in the sacral ulcer region,
also complains of bilateral shoulder pain.
Medical History
Past Medical History
Past Medical History: Reports Other (chronic infection of right hip with open ulcer, diabetes, history of diverting colostomy, hypertension, history of bilateral lower extremity DVT, T12 spinal injury paraplegia wheelchair-bound at baseline,
neurogenic bladder intermittently straight caths, atrial fibrillation, NSVT, recurrent SBO)
Past Surgical History: Reports Other (Bowel resection (Colostomy) and Orthopedic (Spinal fusion))
Social History
Tobacco: Non-smoker
Alcohol: None
Drug: None
Family History
Family History: Not pertinent
Allergies / Home Medications
Allergies reflects when Allergies were last updated in [email or web address].
Home Medications with original date entered in [email or web address]
Allergy/Medication List:
Allergies
Allergy/AdvReac Type Severity Reaction Status Date / Time
ceftriaxone Allergy Rash/pt Verified 05/21/25 15:37
denies.
Tolerated
cefepime.
Sulfa (Sulfonamide Allergy BLISTERS Verified 05/21/25 15:37
Antibiotics) IN MOUTH
sulfisoxazole Allergy BLISTERS Verified 05/21/25 15:37
IN MOUTH
Home Medications
lorazepam 1 mg tablet (Ativan) 1 mg PO BIDPRN PRN anxiety 01/15/22
apixaban 5 mg tablet (Eliquis) 5 mg PO BID Blood clot prevention/tx 05/12/23
losartan 100 mg-hydrochlorothiazide 25 mg tablet 1 tab PO DAILY Blood Pressure 05/12/23
Held on 02/08/25. Instructions: Resume on 03/09/25. Hold until cleared by PCP
therapeutic multivitamin 1 tab PO DAILY Supplement 05/12/23
pantoprazole 40 mg tablet,delayed release (Protonix) 40 mg PO DAILY Gastrointestinal Issue 11/25/24
pregabalin 75 mg capsule (Lyrica) 75 mg PO TID Neurological Condition 11/25/24
amlodipine 10 mg tablet (Norvasc) 10 mg PO DAILY 02/01/25
acetaminophen 325 mg tablet 650 mg (2 x 325 mg) PO Q6HPRN PRN mild pain/ fever>100.5F #90 tabs 02/08/25
collagenase clostridium histo. 250 unit/gram topical ointment (Santyl) 1 applic topical DAILY #90 grams 02/08/25
oxybutynin chloride 5 mg tablet 5 mg PO BIDPRN PRN bladder spasms #60 tabs 02/08/25
oxycodone 5 mg tablet 5 mg PO Q8H PRN severe pain #10 tabs 02/08/25
piperacillin-tazobactam 4.5 gram/100 mL dextrose(iso-osm) IV piggyback (Zosyn) 4.5 g (112.5 mL) IV Q6H #0 mL 02/08/25
Review of Systems
-
History Source: Patient
A 12 point ROS was completed and negative except as noted: Yes
Constitutional: Reports No Symptoms
EENT: Reports No Symptoms
Respiratory: Reports No Symptoms
Cardiac: Reports No Symptoms
Abdomen/GI: Reports No Symptoms
: Reports No Symptoms
Musculoskeletal: Reports No Symptoms
Skin: Reports No Symptoms
Neurological: Reports No Symptoms
Endocrine: Reports No Symptoms
Hematologic/Lymphatic: Reports No Symptoms
Psych: Reports No Symptoms
Physical Exam
Vital Signs
Vital Signs
Temp Pulse Resp BP Pulse Ox
98.2 F 112 14 118/66 98
06/10/25 19:40 06/10/25 20:45 06/10/25 20:45 06/10/25 19:40 06/10/25 21:21
Physical Exam
General: Well Developed, Well Nourished and No Apparent Distress
HEENT: NormoCephalic, Moist mucous membranes and Atraumatic
Respiratory: Clear
Cardiac: S1/S2 and Regular Rhythm; No Murmur or Rub
GI: Soft, Non Tender, Non Distended and Normal Bowel Sounds; No Organomegaly
Rectal: Deferred by Provider
Musculoskeletal: No Clubbing, No Cyanosis and No Edema
Skin: No Rash
Neuro: Nonfocal/grossly intact
Laboratory Results
-
06/10/25 19:37
06/10/25 19:37
Laboratory Results
Total Bilirubin Cancelled 06/10/25 19:37
AST Cancelled 06/10/25 19:37
ALT Cancelled 06/10/25 19:37
Alkaline Phosphatase Cancelled 06/10/25 19:37
Data Reviewed
-
Lab Data: Labs Reviewed by me
Old Records: Reviewed
Impression/Plan
-
IMPRESSION:
PLAN:
# Chronic infected sacral decubitus ulcers of hip
- Morphine, Ativan as needed
- Case management consulted for inpatient hospice placement
History of diverting colostomy
Type 2 diabetes
Essential hypertension
History of bilateral lower extremity DVT
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
Neurogenic bladder intermittently straight catheterizes
-straight catherization protocol
History of atrial fibrillation
NSVT
Recurrent SBO
Comfort care/Hospice
DVT prophylaxis�none
Regular diet
--- NOTE | 2025-06-10 23:55 | PTCARENOTE ---
Late Entry. Received Patient from ED. Patient oriented to self only. Patient was transferred directly to the bed. Patient confused and restless. Assessed. Numerous wounds. Patient placed on a [facility] air. VSS. Oriented to the unit. Bed alarm
placed for safety.
[2025-06-11 00:10] VITALS: BP 104/64; BMI 24.6
[2025-06-11] MEDS: MORPHINE SULFATE 2 MG IV ×10 (01:12→23:20)
[2025-06-11] MEDS: ATIVAN 1 MG PO ×2 (01:15→10:04)
--- NOTE | 2025-06-11 02:52 | W.PN.UPDATE ---
Update Note
Progress Note Update
Called to evaluate patient for pain unrelieved w/current pain regimen, on comfort care/inpatient hospice. Patient states his pain remains at an 8 out of 10 with current pain medications. Discussed with patient and called and spoke to patient's
mother, who are both in agreement to start morphine gtt at this time. Increased pain regimen to start Morphine gtt, medications ordered.
[2025-06-11] MEDS: MORPHINE 100 IV (03:18)
[2025-06-11 08:02] VITALS: BP 83/67
--- NOTE | 2025-06-11 10:57 | W.PN.HOSP.TC ---
Today's Communication/Plan
-
Continue with comfort measures
Assessment / Plan
Assessment / Plan
Chronic infected sacral decubitus ulcers of hip
History of diverting colostomy
Type 2 diabetes
Essential hypertension
History of bilateral lower extremity DVT
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
Neurogenic bladder intermittently straight catheterizes
History of atrial fibrillation
NSVT
Recurrent SBO
Patient was on hospice at home admitted hospital for pain and symptom management.
Continue comfort care/Hospice
Comfort medications added
Discussed with RN
DVT prophylaxis�none
Regular diet
Anticipated Discharge: > 48 hours
Subjective/Interval History
-
Date of Service: June 11, 2025
Admitted for inpatient hospice and currently on IV morphine infusion.
He is sitting up straight in the bed without distress but has some chills ; has no clothes on him. He is not responding much to the questions.
Objective Data
-
Vital Signs:
Vital Signs
Temp Pulse Resp BP Pulse Ox
98.6 F 113 13 83/67 92
06/11/25 08:02 06/11/25 08:02 06/11/25 08:02 06/11/25 08:02 06/11/25 08:02
Physical Exam
-
General: Comfortable
Respiratory: Non Labored Respirations; Negative Accessory Resp Muscle Use
Neuro: Awake; Negative Alert
Psych: Calm
--- NOTE | 2025-06-11 11:19 | HOSPNOTE ---
Assessed patient sitting up in the bed eyes closed, elevated FLACC, grimacing, vocalizing he is in a lot of pain. Oriented to self, restless shivering. Not answering questions much. On Morphine drip step 2, has received 4 breakthrough doses of
Morphing since drip started. Nurse administered Ativan prior to visit for restlessness and attempts at climbing oob. May need to titrate Morphine drip further if no relief. Bp 83/67 HR elevated. Aunt at bedside, patient refusing to eat or drink
anything. Declined to get washed up. Updated hospice team and Nicole Lutz of the above, patient to be admitted GIP for management of pain and anxiety that could not be managed at home. Orders placed today for comfort measures. Patients mother was
contacted and updated on the above as well. Emotional support provided.
[2025-06-11] MEDS: HALDOL 1 MG IV ×2 (12:23→19:10)
[2025-06-11 23:39] VITALS: BP 122/80
--- NOTE | 2025-06-11 23:50 | PTCARENOTE ---
advised pharmacy patient is on step 3 for the Morphine gtt.
[2025-06-12] MEDS: HALDOL 1 MG IV (04:16)
[2025-06-12 07:00] VITALS: BP 117/63
[2025-06-12 07:50] VITALS: BMI 24.6
[2025-06-12] MEDS: MORPHINE SULFATE 4 MG IM (08:08)
--- NOTE | 2025-06-12 11:48 | W.PN.HOSP.TC ---
Today's Communication/Plan
-
Continue with hospice care and comfort medication
Assessment / Plan
Assessment / Plan
Chronic infected sacral decubitus ulcers of hip
History of diverting colostomy
Type 2 diabetes
Essential hypertension
History of bilateral lower extremity DVT
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
Neurogenic bladder intermittently straight catheterizes
History of atrial fibrillation
NSVT
Recurrent SBO
Patient was on hospice at home admitted hospital for pain and symptom management.
Continue comfort care/Hospice
Comfort medications added. Changed Ativan to IV.
Discussed with RN
DVT prophylaxis�none
Regular diet
Anticipated Discharge: > 48 hours
Subjective/Interval History
-
Date of Service: June 12, 2025
Patient on hospice care and IV morphine drip ; patient at times getting agitated.
Objective Data
-
Vital Signs:
Vital Signs
Temp Pulse Resp BP Pulse Ox
97.4 F 97 18 117/63 99
06/12/25 07:00 06/12/25 07:00 06/12/25 07:00 06/12/25 07:00 06/12/25 07:00
Physical Exam
-
General: Other (For some reason patient prefers to always be seated. He is restless and agitated and keeps moving with potential to fall out of bed); Negative Comfortable
Respiratory: Non Labored Respirations; Negative Accessory Resp Muscle Use
Neuro: Awake; Negative Alert
[2025-06-12] MEDS: ATIVAN 1 MG IV ×3 (11:53→21:00)
--- NOTE | 2025-06-12 13:35 | HOSPNOTE ---
Assessed patient in the bed, unresponsive with short periods of apnea. Skin pale and cool, nail beds dusky. Morphine drip titrated to 4mg/hour, FLACC 0 at rest, elevated with provision of care. Would encourage to pre-medicate prior to care or
repositioning. Friend Negro at bedside visiting playing music, very tearful but sharing things they liked to do back in the day. Patients mother was called and updated on patients status and that life expectancy is hours to days. Emotional support
provided. Patient will remain GIP for management of pain, anxiety and agitation that could not be managed at home.
[2025-06-12 19:50] VITALS: BP 103/70
[2025-06-13] MEDS: ATIVAN 1 MG IV ×3 (04:39→19:32)
[2025-06-13] MEDS: MORPHINE SULFATE 4 MG IV ×4 (05:24→20:34)
[2025-06-13 07:18] VITALS: BP 107/62
--- NOTE | 2025-06-13 12:15 | CM ---
Patient currently on [facility] hospice in [address] [place] [id number]. Patient was admitted from home where he was on [facility] hospice per chart review. Prior to admission patient resided alone in a ranc[place] with ramp entrance per chart review. Patient had paraplegia and he was
W/C bound. Patient was current with [facility] prior to admission and his PCP is Dr. Francois. Patient uses [facility] prior to admissions for pharmacy needs. CM will continue to follow for discharge planning needs.
Plan; [facility] hospice.
--- NOTE | 2025-06-13 12:41 | W.PN.HOSP.TC ---
Today's Communication/Plan
-
continue inpatient hospice
Assessment / Plan
Assessment / Plan
Assessment:
Chronic infected sacral decubitus ulcers of hip
History of diverting colostomy
Type 2 diabetes
Essential hypertension
History of bilateral lower extremity DVT
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
Neurogenic bladder intermittently straight catheterizes
History of atrial fibrillation
NSVT
Recurrent SBO
Plan:
Patient was on hospice at home admitted hospital for pain and symptom management.
Continue comfort care/Hospice
Comfort medications, IV ativan and morphine infusion
Discussed with RN
Anticipated Discharge: 24 - 48 hours
Subjective/Interval History
-
Date of Service: June 13, 2025
on morphine step 3
Objective Data
-
Vital Signs:
Vital Signs
Temp Pulse Resp BP Pulse Ox
97.6 F 103 16 107/62 97
06/13/25 07:18 06/13/25 07:18 06/13/25 07:18 06/13/25 07:18 06/13/25 08:34
I&O
06/12/25 06/13/25 06/14/25
06:59 06:59 06:59
Output Total 600 / 600
Balance -600 / -600
Physical Exam
-
General: No Apparent Distress
HEENT: Normocephalic and Atraumatic
Respiratory: Negative Wheezes
Cardiac: Regular Rhythm and S1/S2
Neuro: Sedated
Psych: Calm
Data Reviewed
-
Total Time Spent with Patient (in minutes): 41
Labs: Labs Reviewed by me
[2025-06-13] MEDS: MORPHINE 100 IV (13:10)
--- NOTE | 2025-06-13 13:21 | HOSPNOTE ---
Patient continues to be inpatient hospice appropriate for management of pain and agitation. The patient is on a drip and is actively dying. No family was present during my visit. We will see patient daily.
[2025-06-13] MEDS: MORPHINE SULFATE 2 MG IV (15:45)
[2025-06-13] MEDS: NSS (PRESERVATIVE FREE) 0.5 ML IV (19:33)
[2025-06-13 23:36] VITALS: BP 110/62
[2025-06-14] MEDS: MORPHINE SULFATE 4 MG IV ×3 (05:17→15:02)
[2025-06-14 07:40] VITALS: BP 93/53
--- NOTE | 2025-06-14 12:16 | W.PN.HOSP.TC ---
Today's Communication/Plan
-
maximize comfort
Assessment / Plan
Assessment / Plan
Assessment:
Chronic infected sacral decubitus ulcers of hip
History of diverting colostomy
Type 2 diabetes
Essential hypertension
History of bilateral lower extremity DVT
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
Neurogenic bladder intermittently straight catheterizes
History of atrial fibrillation
NSVT
Recurrent SBO
Plan:
Patient was on hospice at home admitted hospital for pain and symptom management.
Continue comfort care/Hospice
Comfort medications, IV ativan and morphine infusion
Discussed with RN
Anticipated Discharge: 24 - 48 hours
Subjective/Interval History
-
Date of Service: June 14, 2025
remains on morphine step 3
periods of apnea lengthening
Objective Data
-
Vital Signs:
Vital Signs
Temp Pulse Resp BP Pulse Ox
97.6 F 101 8 93/53 86
06/14/25 07:40 06/14/25 07:40 06/14/25 07:40 06/14/25 07:40 06/14/25 07:40
I&O
06/13/25 06/14/25 06/15/25
06:59 06:59 06:59
Intake Total 0 / 0
Output Total 600 / 600 100 / 100
Balance -600 / -600 -100 / -100
Physical Exam
-
General: No Apparent Distress
HEENT: Normocephalic and Atraumatic
Respiratory: Other (periods of apnea); Negative Wheezes
Cardiac: Regular Rhythm and S1/S2
Neuro: Sedated
Psych: Calm
Data Reviewed
-
Total Time Spent with Patient (in minutes): 41
Labs: Labs Reviewed by me
[2025-06-14] MEDS: MORPHINE 100 IV (13:27)
[2025-06-14] MEDS: ROBINUL 0.2 MG IV (15:10)
--- NOTE | 2025-06-14 15:54 | W.PN.DEATH ---
Pronouncement of
-
Called to see patient to pronounce.
No spontaneous heart tones or respirations noted.
Patient not responsive to verbal stimuli.
Patient is pronounced .
Time of : 15:30
Date of : 06/14/25
Cause of : Infected sacral decubitus ulcers of hips
Family Notified: Yes
--- NOTE | 2025-06-14 15:58 | W.DCSUMMARY ---
Discharge Summary
Discharge Data
Date of Admission: 06/13/25
Date of Discharge: 06/14/25
-
Pending Results: No
Hospital Course
60 y/o M, hx of history of chronic infection of right hip with open ulcer, diabetes, history of diverting colostomy, hypertension, history of bilateral lower extremity DVT, T12 spinal injury paraplegia wheelchair-bound at baseline, neurogenic
bladder intermittently straight caths, atrial fibrillation, NSVT, recurrent SBO presented 06/10 to ER for inpatient hospice care. Patient was on hospice care for chronic infected wounds in setting of paraplegia and did not have adequate pain control
at home. He was admitted with IV ativan and IV morphine infusion. He was kept comfortable and was pronounced on 06/14/25 at 330PM.
Discharge Plan
-
Patient Disposition:
Referrals:
Richie Francois MD [Family Provider, Internal Medicine]
Prescriptions:
No Action
lorazepam [Ativan] 1 mg Tablet
1 mg PO BIDPRN PRN (Reason: anxiety)
therapeutic multivitamin Tablet
1 tab PO DAILY
losartan-hydrochlorothiazide 100-25 mg Tablet
1 tab PO DAILY
Eliquis 5 MG tablet
5 mg PO BID
pantoprazole [Protonix] 40 mg Tablet,Delayed Release (Dr/Ec)
40 mg PO DAILY
pregabalin [Lyrica] 75 mg Capsule
75 mg PO TID
amlodipine [Norvasc] 10 mg Tablet
10 mg PO DAILY
Zosyn in dextrose (iso-osm) 4.5 gram/100 mL Piggyback
4.5 g IV Q6H Qty: 0 0RF
acetaminophen 325 mg Tablet
650 mg PO Q6HPRN PRN (Reason: mild pain/ fever>100.5F) Qty: 90 0RF
Santyl 250 unit/gram Ointment
1 applic topical DAILY Qty: 90 0RF
oxybutynin chloride 5 mg Tablet
5 mg PO BIDPRN PRN (Reason: bladder spasms) Qty: 60 0RF
oxycodone 5 mg tablet
5 mg PO Q8H PRN (Reason: severe pain) Qty: 10 0RF
Discharge Date and Time
Print Language: COMORAN
--- NOTE | 2025-06-14 17:16 | HOSPNOTE ---
Called the mom to send my condolences.
== END 2025-06-14 15:30 | disposition expired | DRG 951 ==
LOC: 2 NORTH 07:58
PROVIDERS: ADMITTING PHYSICIAN Hospitalist; ATTENDING PHYSICIAN Internal Medicine; EMERGENCY PHYSICIAN Emergency Medicine; FAMILY PHYSICIAN Internal Medicine
DX: Z51.5 Encounter for palliative care (principal); G82.20 Paraplegia, unspecified; I47.20 Ventricular tachycardia, unspecified; K56.609 Unspecified intestinal obstruction, unspecified as to partial versus complete obstruction; L89.159 Pressure ulcer of sacral region, unspecified stage; E11.9 Type 2 diabetes mellitus without complications; I10 Essential (primary) hypertension; F41.9 Anxiety disorder, unspecified; G89.29 Other chronic pain; I48.91 Unspecified atrial fibrillation; Z99.3 Dependence on wheelchair
CPT/HCPCS: 93005; 96374; 96375; 96376; 99284